=== PATIENT | female | born 1990 | race Caucasian/White ===

== ENCOUNTER → 2020-06-25 17:24 | Outpatient (CLI) | payer BC, SELFPAY ==
[2020-06-25 17:44] LABS: Basophils # 0.1 K/mm3 (0-0.2); Basophils % 0.8 % (0.1-2.0); Eosinophils # 0.2 K/mm3 (0.0-0.4); Eosinophils % 1.9 % (0.1-12.0); Hemoglobin 13.8 g/dL (12.2-16.2); Lymphocytes # 2.2 K/mm3 (0.7-4.5); Mean Corpuscular HGB Conc 33.7 g/dL (31.8-35.4); Mean Corpuscular Hemoglobin 28.8 pg (27.0-31.2); Mean Corpuscular Volume 85.5 fl (81-99); Mean Platelet Volume 7.7 fl (7.4-10.4); Monocytes # 0.4 K/mm3 (0.1-1.0); Neutrophils # 5.3 K/mm3 (1.8-7.8); Neutrophils % 65.3 % (37.0-80.0); Platelet Count 238 K/mm3 (142-424); Red Cell Distribution Width 13.9 % (11.5-17.5); White Blood Count 8.1 K/mm3 (4.8-10.8)
[2020-06-25 18:07] LABS: Chloride 106 mmol/L (98-107)
[2020-06-25 18:08] LABS: Potassium 4.1 mmoL/L (3.5-5.1); Sodium 137 mmol/L (136-145)
[2020-06-25 18:10] LABS: Alanine Aminotransferase 30 U/L (12-78); Albumin Level 4.6 g/dl (3.5-5.0); Albumin/Globulin Ratio 1.6 (1.1-1.8); Alkaline Phosphatase 88 U/L (38-126); Anion Gap 12.1 mEq/L (5-15); Aspartate Amino Transferase 32 U/L (14-36); Bilirubin,Total 0.7 mg/dl (0.2-1.3); Blood Urea Nitrogen 8 mg/dl (7-17); Carbon Dioxide 23 mmol/L (22.0-30.0); Estimated Glomerular Filt Rate 117 ml/min (>60); GFR (African American) 141 ML/MIN (>60); Globulin 2.8 g/dL (1.3-3.2); Total Protein,Serum 7.4 g/dl (6.3-8.2)
[2020-06-25 18:11] LABS: Calcium 9.3 mg/dl (8.4-10.2); Chol/HDL Ratio 3.1 (1-3.5); Cholesterol 181 mg/dl (140-200); Glucose 94 mg/dl (74-100); HDL Cholesterol 59 mg/dl (40-60); Triglycerides 122 mg/dl (30-150); VLDL Cholesterol 24 mg/dL (0-40)
[2020-06-25 18:22] LABS: Direct LDL Cholesterol 76.61 mg/dL (100-129)
[2020-06-25 18:27] LABS: Free T4 (Free Thyroxine) 1.12 ng/dl (0.78-2.19)
[2020-06-25 18:30] LABS: 25-OH Vitamin D, Total 16.1 ng/mL (30-100)
[2020-06-25 18:43] LABS: Thyroid Stimulating Hormone 1.44 uIU/mL (0.465-4.68)
[2020-06-25 19:02] LABS: Vitamin B12 460 pg/mL (239-931)
== END ==
PROVIDERS: Nurse Practitioner Psychiatric/Mental Health; Visit Provider Emergency Medicine
DX: R22.1 Localized swelling, mass and lump, neck (principal); J02.9 Acute pharyngitis, unspecified; E55.9 Vitamin D deficiency, unspecified; Z79.899 Other long term (current) drug therapy
CPT/HCPCS: 36415; 80053; 80061; 82306; 82607; 84439; 84443; 85025

== ENCOUNTER → 2020-06-29 13:13 | Outpatient (CLI) | payer BC, SELFPAY ==
--- NOTE | 2020-06-29 13:13 | US_ITS ---
PROCEDURE: US THYROID CLINICAL INDICATION: possible mass COMPARISON: No exams were available for comparison FINDINGS: Right lobe: 4.4 x 1.7 x 2.1 cm. Homogeneous echogenicity. Left lobe: 4.6 x 1.3 x 1.9 cm. Homogeneous echogenicity. There is a 3 mm anechoic nodule in the lower pole and a 4 mm slightly hypoechoic nodule in the lower pole. Isthmus: Unremarkable Additional findings: IMPRESSION: 2 benign appearing nodules lower pole on the left otherwise negative thyroid ultrasound Dictated by: Nathan Mcnair MD 06/29/2020 15:27 Nathan Mcnair MD in [place] 06/29/2020 15:27
== END ==
LOC: RAD 13:13
PROVIDERS: PCP Emergency Medicine; Visit Provider Emergency Medicine
DX: R22.1 Localized swelling, mass and lump, neck (principal)
CPT/HCPCS: 76536

== ENCOUNTER 2020-11-14 12:55 | Emergency (ER) | payer BC, SELFPAY ==
[2020-11-14 12:55] VITALS: BP 127/99; PULSE 104; RESP 24; TEMP 38.2; O2SAT 96; BMI 51.5
[2020-11-14 13:17] VITALS: PULSE 104; RESP 22; TEMP 38.2; O2SAT 96; BMI 51.6
--- NOTE | 2020-11-14 13:29 | HMH.EDUTC ---
[facility] [place] Disposition Clinical Impression: Viral upper respiratory illness, Exposure to COVID-19 virus Disposition: Home, Self-Care Condition on Discharge: Good Instructions: Vitamin C (Ascorbic Acid), Zinc, DI for Viral Upper Respiratory Infection -- Adult, DI for COVID-19 (Suspected or Confirmed ), Preventing the Spread of Coronavirus Discharge Instructions Additional Instructions: *Monitor Temp, Over the counter Motrin or Tylenol as directed/as needed Tylenol every 4 hours and Motrin every 6 hours (as long as your family doctor has told you that you can take it) for fever or pain. and straight to ER if unable to lower temp less than 101.0 after medication given *Warm salt water gargles may help to soothe the throat *Throat Lozenges *Warm fluids like tea with honey may help to soothe the throat *Sleep elevated *Humidifier/Vaporizer Your throat swab was sent for culture. Those results are typically sent to your primary care. Be sure to follow up in 2-3 days with your family doctor/primary care physician if no improvement so they can review those result and treat if necessary. If you don?t have a primary care doctor, I recommend you get one but in the mean time, you will have to return to a walk in clinic Follow up IMMEDIATELY for new or worsening symptoms or no Noticeable improvement over the next 48-72 hours. 911 for difficulty breathing or swallowing Go straight to ER if any severe shortness of breath or other life threatening symptoms You were tested for today for COVID19 your test result should be back in the next 24-48 hours, You was given a handout with how to log onto [facility] portal to get your results if you have issues logging on or no internet access you may call the [facility] for your results You was given a handout with instructions for Self Quarantine and Self isolation for while you wait on test results and what to do if they are positive If you are positive the Health Dept will be contacting you also Referrals: Da Barahona MD [Primary Care Provider] - As needed Forms: Work/School Release Time of Disposition: 13:49 Medical Decision Making - Pal Inquiry Pt receiving controlled substance: No Pal was queried for this patient: No Vital Signs: 11/14/20 12:55 11/14/20 13:17 11/14/20 13:34 Temperature 100.7 F H 100.7 F H 100.7 F H Temperature Source Oral Oral Pulse Rate 104 H Pulse Rate [Radial] 104 H 104 H Respiratory Rate 24 22 22 Blood Pressure 127/99 H Blood Pressure [Right Arm] 127/99 H Blood Pressure Mean [Right Arm] 108 02 Sat by Pulse Oximetry 96 96 Oxygen Delivery Method Room Air - Lab Data Lab results reviewed: Yes: I reviewed the patient's lab results. Lab Results 11/14/20 13:28: Strep Scn Rapid Clinic Negative Orders (Tests/Meds): ORDERS Category Date Time Status Covid-19 Nasal PCR ([facility]) Routine Lab 11/14/20 13:20 Received Strep Screen Confirmation Stat Micro 11/14/20 13:28 Received [facility] HPI - General Stated complaint: covid exposure, SOA Time Seen by Provider: 11/14/20 13:29 Mode of Arrival: Ambulatory Source of Information: Patient Limitations: No Limitations Description of Symptoms (Recalled from Triage Doc. by RN): PT C/O COUGH, NAUSEA, BODY ACHES, GILLESPIE, SOA AND FATIGUE. MOM TESTED POSITIVE FOR COVID YESTERDAY. HEENT Symptoms (Recalled from RN notes): Yes (GILLESPIE) Resp Symptoms (Recalled from RN notes): Yes (COUGH AND SOA) Skin Symptoms (Recalled from RN notes): No MS Symptoms (Recalled from RN notes): No Functional Status (Recalled from RN notes): FEVER, FATIGUE AND BODY ACHES - History of Present Illness Provider Complaint: Patient states that she lives with her mother and she tested positive for COVID states that she started having symptoms also States that she has been having body aches, chills, headache, nasal congestion, scratchy throat and feels a little winded off and on so she called her PCP and they recommended that she come in Denies any s
[2020-11-14 13:31] LABS: UTC Strep Screen (Rapid) Negative (Negative)
[2020-11-14 13:34] VITALS: BP 127/99; PULSE 104; RESP 22; TEMP 38.2
== END 2020-11-14 14:01 | disposition home or self-care (01) ==
LOC: ER 13:13 → UTC 13:14
PROVIDERS: Emergency Provider Nurse Practitioner; PCP Emergency Medicine
DX: U07.1 COVID-19 (principal); J06.9 Acute upper respiratory infection, unspecified
CPT/HCPCS: 87880; 99203; C9803; G0463; U0003; U0005

== ENCOUNTER 2020-11-25 15:47 | Emergency (ER) | payer BC, SELFPAY ==
[2020-11-25 16:20] VITALS: BP 180/105; PULSE 87; RESP 20; TEMP 36.9; O2SAT 98; BMI 52.4
--- NOTE | 2020-11-25 16:47 | HMH.EDUTC ---
[facility] [place] Disposition Clinical Impression: COVID-19 Pharyngitis Qualifiers: Pharyngitis/tonsillitis etiology: unspecified etiology Qualified Code(s): J02.9 - Acute pharyngitis, unspecified Disposition: Home, Self-Care Condition on Discharge: Good Instructions: Strep Throat, DI for Pharyngitis/Tonsillopharyngitis -- Adult, DI for COVID-19 (Suspected or Confirmed ), Preventing the Spread of Coronavirus Discharge Instructions Additional Instructions: Drink plenty of fluids. Take tylenol or ibuprofen for pain or fever. Take the medications as directed. Follow up with your regular doctor. GO TO THE ER FOR ANY WORSENING SYMPTOMS The cough medication (promethazine dm) will make you drowsy, so don't drive or operate heavy machinery after taking it. Prescriptions: Promethazine/Dextromethorphan [Promethazine-Dm Syrup] 5 ml PO Q6HP PRN #240 ml PRN Reason: Cough Transmission Status: Received by [id number] dexAMETHasone [Decadron] 6 mg PO DAILY 6 Days #6 tab Transmission Status: Received by [id number] Azithromycin [Z-Thomas 250mg Tab*] 250 mg PO UD DOSE PK #6 tab Transmission Status: Received by [id number] Referrals: Da Barahona MD [Primary Care Provider] - Forms: Work/School Release Time of Disposition: 17:11 Medical Decision Making - Medical Records Medical records reviewed: No: I reviewed the patient's medical records. - Pal Inquiry Pt receiving controlled substance: No Vital Signs: 11/25/20 16:20 11/25/20 17:16 Temperature 98.5 F 98.5 F Temperature Source Oral Pulse Rate 87 Pulse Rate [Left Brachial] 87 Respiratory Rate 20 20 Blood Pressure 180/105 H Blood Pressure [Left Arm] 180/105 H Blood Pressure Mean [Left Arm] 130 Blood Pressure Source [Left Arm] Automatic Cuff Blood Pressure Position [Left Arm] Sitting 02 Sat by Pulse Oximetry 98 Oxygen Delivery Method Room Air - Lab Data Lab results reviewed: Yes: I reviewed the patient's lab results. Lab Results 11/25/20 16:28: Chlamy pneumoniae PCR Not detected, Adenovirus (PCR) Not detected, B. pertussis DNA (PCR) Not detected, Coronavirus OC43 (PCR) Not detected, Coronavirus HKU1 (PCR) Not detected, Coronavirus 229E (PCR) Not detected, SARS-CoV-2 (PCR) Not detected, Coronavirus NL63 (PCR) Not detected, Human Metapneumovir PCR Not detected, Influenza A (H1) PCR Not detected, Influ A (H1N1/09) PCR Not detected, Influenza A (H3) PCR Not detected, Influenza Type A (PCR) Not detected, Influenza Type B (PCR) Not detected, M. pneumoniae (PCR) Not detected, Parainfluenza 1 (PCR) Not detected, Parainfluenza 2 (PCR) Not detected, Parainfluenza 3 (PCR) Not detected, Parainfluenza 4 (PCR) Not detected, RSV (PCR) Not detected, Entero/Rhino (PCR) Not detected - Radiology Data #1 Image(s): Chest Image Reviewed: Yes I reviewed the patient's radiology image, Yes I have reviewed radiologist's interpretation Preliminary Findings: Normal/NAD, No Infiltrates Seen PROCEDURE INFORMATION: Exam: XR Chest Exam date and time: 11/25/2020 4:47 PM Age: 30 years old Clinical indication: Cough; Additional info: Cough, congestion TECHNIQUE: Imaging protocol: XR of the chest. Views: 2 views. COMPARISON: No relevant prior studies available. FINDINGS: Lungs: Unremarkable. No consolidation. Pleural spaces: Unremarkable. No pleural effusion. No pneumothorax. Heart/Mediastinum: Unremarkable. No cardiomegaly. Bones/joints: Unremarkable. IMPRESSION: No acute findings. [facility] [place] HPI - General Stated complaint: covid positive 11/14 still has symptoms Time Seen by Provider: 11/25/20 16:47 Mode of Arrival: Ambulatory Source of Information: Patient Limitations: No Limitations Description of Symptoms (Recalled from Triage Doc. by RN): PATIENT TESTED POSITIVE FOR COVID ON 11/14. NEEDING NEG TEST TO RETURN TO WORK. C/O DIZZINESS, COUGH AND
[2020-11-25 16:55] LABS: Adenovirus,PCR Not Detected (NotDetected); Bordetella Pertussis Not Detected (NotDetected); Chlamydophila Pneumoniae, PCR Not Detected (NotDetected); Coronavirus 19, PCR Not Detected (NotDetected); Coronavirus 229E Not Detected (NotDetected); Coronavirus NL63 Not Detected (NotDetected); Coronavirus OC43 Not Detected (NotDetected); Coronovirus HKU1,PCR Not Detected (NotDetected); Human Metapneumovirus Not Detected (NotDetected); Influenza A, PCR Not Detected (NotDetected); Influenza AH1, 2009 Not Detected (NotDetected); Influenza AH1, PCR Not Detected (NotDetected); Influenza AH3,PCR Not Detected (NotDetected); Influenza B, PCR Not Detected (NotDetected); Mycoplasma Pneumoniae, PCR Not Detected (NotDetected); Parainfluenza 1, PCR Not Detected (NotDetected); Parainfluenza 2, PCR Not Detected (NotDetected); Parainfluenza 3, PCR Not Detected (NotDetected); Parainfluenza 4, PCR Not Detected (NotDetected); Respiratory Syncytial Virus Not Detected (NotDetected); Rhinovirus/Enterovirus Not Detected (NotDetected)
[2020-11-25 17:16] VITALS: BP 180/105; PULSE 87; RESP 20; TEMP 36.9; O2SAT 98
== END 2020-11-25 17:23 | disposition home or self-care (01) ==
PROVIDERS: Emergency Provider Nurse Practitioner Family; PCP Emergency Medicine
DX: U07.1 COVID-19 (principal); J02.9 Acute pharyngitis, unspecified
CPT/HCPCS: 71046; 87581; 87632; 87798; 99202; C9803; G0463; U0003; U0005

== ENCOUNTER 2022-02-02 12:21 | Emergency (ER) | payer BC, SELFPAY ==
--- NOTE | 2022-02-02 12:56 | EXP.UTC ---
Discharge Plan Disposition Patient Disposition: Home, Self-Care Condition: Good Prescriptions Prescriptions: New azithromycin [Zithromax] 250 mg tablet 250 mg PO UD DOSE PK Qty: 6 0RF Rx Instructions: Take two (2) tablets today, then one (1) tablet days #2 thru #5 oseltamivir [Tamiflu] 75 mg capsule 75 mg PO BID Qty: 10 0RF ochjwhmuaehhwqx-nrarjnvog-VR [Bromfed DM] 2-30-10 mg/5 mL Syrup 5 ml PO Q6H PRN (Reason: Cough) Qty: 240 0RF No Action phentermine [Adipex-P] 37.5 mg tablet 37.5 mg PO DAILY Qty: 30 0RF Rx Instructions: must administer 30 minutes before or 1-2 hours after breakfast buspirone 10 mg tablet 10 mg PO BID 90 Days Qty: 180 0RF Vraylar 3 mg capsule 3 mg PO DAILY Qty: 90 0RF venlafaxine [Effexor XR] 150 mg capsule,extended release 24hr 150 mg PO DAILY 90 Days Qty: 90 0RF Ozempic 0.25 mg or 0.5 mg(2 mg/1.5 mL) pen injector 0.25 mg SQ WEEKLY Qty: 1.5 2RF Rx Instructions: 0.25mg weekly for 4 weeks then 0.5mg weekly for 8 weeks Referrals Follow up/Referrals: Da Barahona MD [Primary Care Provider] - See instructions Activity Restrictions/Add. Instructions Additional Instructions/Restrictions: Drink plenty of fluids. Take tylenol or ibuprofen for pain or fever. Take the medications as directed. Follow up with your regular doctor. GO TO THE ER FOR ANY WORSENING SYMPTOMS Clinical Impressions Clinical Impression: Influenza A Stand Alone Forms Stand Alone Forms: Work/School Release Instructions Patient Instructions: DI for Influenza -- Adult, Oseltamivir Discharge ED Provider: Tahir Benjamin [facility] General Stated complaint: body aches fever headache Time Seen by Provider: 02/02/22 12:56 History of Present Illness Provider Complaint: She states that for the past 2 days she has had body aches, chills, fever, sore throat and a dry cough. Related Data Previous Rx's Medication Instructions Recorded semaglutide 0.25 mg or 0.5 mg (2 0.25 mg (0.2 mL) SQ WEEKLY #1.5 mL 12/30/21 mg/1.5 mL) subcutaneous pen injector (Ozempic) buspirone 10 mg tablet 10 mg PO BID 90 days #180 tabs 01/01/22 cariprazine 3 mg capsule (Vraylar) 3 mg PO DAILY #90 caps 01/01/22 venlafaxine 150 mg 150 mg PO DAILY 90 days #90 caps 01/01/22 capsule,extended release 24 hr (Effexor XR) phentermine 37.5 mg tablet 37.5 mg PO DAILY #30 tabs 01/29/22 (Adipex-P) azithromycin 250 mg tablet 250 mg PO UD DOSE PK #6 tabs 02/02/22 (Zithromax) dcwylyejxynotyb-tnqgpqawrmwjpga-PR 5 ml PO Q6H PRN Cough #240 mL 02/02/22 2 mg-30 mg-10 mg/5 mL oral syrup (Bromfed DM) oseltamivir 75 mg capsule (Tamiflu) 75 mg PO BID #10 caps 02/02/22 Allergies Allergy/AdvReac Type Severity Reaction Status Date / Time No Known Allergies Allergy Verified 02/02/22 13:03 [facility] Disclaimer: The information contained in this section may have been updated after the patient was seen, as this information can be updated by other users. Medical History Generalized anxiety disorder Major depressive disorder Social History Smoking Status: Never smoker alcohol intake: current substance use type: denies use current occupational status: employed Travel in the last 8 weeks: None household members: family housing: house number of children: 1 ROS Obtained: Yes All systems reviewed & no additional complaints except as documented Constitutional Constitutional: Reports chills and Reports fever(s) Eyes Eyes: Denies eye discharge ENT Ears, Nose, Mouth, and Throat: Reports as per HPI Cardiovascular Cardiovascular: Denies chest pain Respiratory Respiratory: Denies chest congestion and Reports cough Gastrointestinal Gastrointestingal: Reports nausea; Denies abdominal pain, constipation, cramping, diarrhea or vomiting Musculoskeletal Musculoskel
[2022-02-02 12:59] LABS: UTC Influenza A Antigen Positive (Negative); UTC Influenza B Antigen Negative (Negative)
[2022-02-02 13:01] VITALS: BP 135/101; PULSE 102; RESP 16; TEMP 37.3; O2SAT 95; BMI 53.2
[2022-02-02 13:44] VITALS: BP 135/101; PULSE 102; RESP 16; TEMP 37.3
== END 2022-02-02 13:51 | disposition home or self-care (01) ==
PROVIDERS: Emergency Provider Nurse Practitioner Family; PCP Emergency Medicine
DX: J10.1 Influenza due to other identified influenza virus with other respiratory manifestations (principal)
CPT/HCPCS: 87804; 99212; G0463

== ENCOUNTER 2022-04-17 17:06 | Emergency (ER) | payer MEDICAID, SELFPAY ==
--- NOTE | 2022-04-17 17:12 | XR_ITS ---
PROCEDURE INFORMATION: Exam: XR Left Knee Exam date and time: 04/17/2022 5:24 PM Age: 31 years old Clinical indication: Pain; Knee; Left; Additional info: Fall TECHNIQUE: Imaging protocol: Radiologic exam of the Left knee. Views: 3 views. COMPARISON: No relevant prior studies available. FINDINGS: Bones/joints: Small marginal osteophytes and degenerative changes involving the patellofemoral joint. Soft tissues: Normal. IMPRESSION: Small marginal osteophytes and degenerative changes involving the patellofemoral joint. No acute osseous abnormality.
[2022-04-17 17:46] VITALS: BP 151/90; PULSE 110; RESP 20; TEMP 36.6; O2SAT 95; BMI 53.2
--- NOTE | 2022-04-17 17:48 | EXP.UTC ---
Discharge Plan Disposition Patient Disposition: Home, Self-Care Condition: Good Prescriptions Prescriptions: New ibuprofen [IBU] 800 mg tablet 800 mg PO Q8HP PRN (Reason: Moderate Pain) Qty: 30 0RF No Action phentermine [Adipex-P] 37.5 mg tablet 37.5 mg PO DAILY Qty: 30 0RF Rx Instructions: must administer 30 minutes before or 1-2 hours after breakfast Vraylar 3 mg capsule 3 mg PO DAILY Qty: 90 0RF venlafaxine [Effexor XR] 150 mg capsule,extended release 24hr 150 mg PO DAILY 90 Days Qty: 90 0RF Ozempic 0.25 mg or 0.5 mg(2 mg/1.5 mL) pen injector 0.25 mg SQ WEEKLY Qty: 1.5 2RF Rx Instructions: 0.25mg weekly for 4 weeks then 0.5mg weekly for 8 weeks buspirone 10 mg tablet 10 mg PO BID 90 Days Qty: 180 0RF azithromycin [Zithromax] 250 mg tablet 250 mg PO UD DOSE PK Qty: 6 0RF Rx Instructions: Take two (2) tablets today, then one (1) tablet days #2 thru #5 oseltamivir [Tamiflu] 75 mg capsule 75 mg PO BID Qty: 10 0RF blbyacssjmxtsnq-ejqayhpqq-MC [Bromfed DM] 2-30-10 mg/5 mL Syrup 5 ml PO Q6H PRN (Reason: Cough) Qty: 240 0RF Referrals Follow up/Referrals: Osmani Carney JR, MD [Physician] - See instructions Da Barahona MD [Primary Care Provider] - See instructions Activity Restrictions/Add. Instructions Additional Instructions/Restrictions: Rest the extremity, Elevate the extremity as tolerated while you are resting. Take ibuprofen for pain. I sent in a prescription to your pharmacy. Follow up with Dr. Carney (orthopedics). I put in a referral but you need to call his office and schedule an appointment. Follow up with your regular doctor. GO TO THE ER FOR ANY WORSENING SYMPTOMS Clinical Impressions Clinical Impression: Left knee pain, Left knee sprain Stand Alone Forms Stand Alone Forms: Work/School Release Instructions Patient Instructions: How to Use an Elastic Bandage-Knee Sprain, DI for Knee Sprain, DI for Knee Pain Discharge ED Provider: Tahir Benjamin [facility] HPI General Stated complaint: AO02/15 LT knee inj Time Seen by Provider: 04/17/22 17:48 History of Present Illness Provider Complaint: She states that she stepped down out of a truck yesterday and came down wrong on her left knee. She denies falling or twisting the knee. She states that it hurt when she stepped down. Then, since then, she has had left knee pain that is worse with bearing weight or walking. She denies any other injury. Related Data Previous Rx's Medication Instructions Recorded semaglutide 0.25 mg or 0.5 mg (2 0.25 mg (0.2 mL) SQ WEEKLY #1.5 mL 12/30/21 mg/1.5 mL) subcutaneous pen injector (Ozempic) cariprazine 3 mg capsule (Vraylar) 3 mg PO DAILY #90 caps 01/01/22 venlafaxine 150 mg 150 mg PO DAILY 90 days #90 caps 01/01/22 capsule,extended release 24 hr (Effexor XR) phentermine 37.5 mg tablet 37.5 mg PO DAILY #30 tabs 01/29/22 (Adipex-P) azithromycin 250 mg tablet 250 mg PO UD DOSE PK #6 tabs 02/02/22 (Zithromax) odpgbnfgosmrjit-oxiyriwjmoebjjw-RW 5 ml PO Q6H PRN Cough #240 mL 02/02/22 2 mg-30 mg-10 mg/5 mL oral syrup (Bromfed DM) oseltamivir 75 mg capsule (Tamiflu) 75 mg PO BID #10 caps 02/02/22 buspirone 10 mg tablet 10 mg PO BID 90 days #180 tabs 03/31/22 ibuprofen 800 mg tablet (IBU) 800 mg PO Q8HP PRN Moderate Pain 04/17/22 #30 tabs Allergies Allergy/AdvReac Type Severity Reaction Status Date / Time No Known Allergies Allergy Verified 02/02/22 13:03 [facility] Disclaimer: The information contained in this section may have been updated after the patient was seen, as this information can be updated by other users. Medical History Generalized anxiety disorder Major depressive disorder Social History Smoking Status: Never smoker alcohol intake: current substance use type: denies use current occupa
[2022-04-17 17:57] VITALS: BP 151/80; PULSE 90; RESP 20; TEMP 36.6; O2SAT 96
== END 2022-04-17 18:37 | disposition home or self-care (01) ==
PROVIDERS: Emergency Provider Nurse Practitioner Family; PCP Emergency Medicine
DX: S83.92XA Sprain of unspecified site of left knee, initial encounter (principal)
CPT/HCPCS: 73562; 99212; 99213; G0463

== ENCOUNTER → 2022-05-12 15:44 | Outpatient (CLI) | payer MEDICAID, SELFPAY ==
[2022-05-12 16:42] LABS: Hemoglobin A1C 4.8 % (4.0-6.0)
[2022-05-12 16:45] LABS: Alanine Aminotransferase 32 U/L (12-78); Albumin Level 4.4 g/dl (3.5-5.0); Albumin/Globulin Ratio 1.6 (1.1-1.8); Alkaline Phosphatase 86 U/L (38-126); Aspartate Amino Transferase 33 U/L (14-36); Bilirubin,Total 0.5 mg/dl (0.2-1.3); Blood Urea Nitrogen 11 mg/dl (7-17); Calcium 8.9 mg/dl (8.4-10.2); Carbon Dioxide 26 mmol/L (22.0-30.0); Chloride 105 mmol/L (98-107); Cholesterol 206 mg/dl (140-200); Estimated Glomerular Filt Rate 97 ml/min (>60); GFR (African American) 117 ML/MIN (>60); Globulin 2.7 g/dL (1.3-3.2); Glucose 111 mg/dl (74-100); HDL Cholesterol 41 mg/dl (40-60); Sodium 136 mmol/L (136-145); Total Protein,Serum 7.1 g/dl (6.3-8.2); Triglycerides 274 mg/dl (30-150); VLDL Cholesterol 55 mg/dL (0-40)
[2022-05-12 16:57] LABS: Direct LDL Cholesterol 100.43 mg/dL (100-129)
[2022-05-12 17:02] LABS: 25-OH Vitamin D, Total 30.3 ng/mL (30-100)
[2022-05-12 17:16] LABS: Thyroid Stimulating Hormone 2.42 uIU/mL (0.465-4.68)
[2022-05-12 17:55] LABS: Hematocrit 41.5 % (37.0-47.0); Hemoglobin 13.7 g/dL (12.2-16.2); Mean Corpuscular HGB Conc 32.9 g/dL (31.8-35.4); Mean Corpuscular Hemoglobin 28.8 pg (27.0-31.2); Mean Corpuscular Volume 87.7 fl (81-99); Platelet Count 267 K/mm3 (142-424); Red Blood Count 4.74 M/mm3 (4.20-5.40); Red Cell Distribution Width 13.8 % (11.5-17.5); White Blood Count 6.9 K/mm3 (4.8-10.8)
[2022-05-12 17:56] LABS: Basophils # 0.1 K/mm3 (0-0.2); Basophils % 0.8 % (0.1-2.0); Eosinophils # 0.1 K/mm3 (0.0-0.4); Eosinophils % 1.6 % (0.1-12.0); Lymphocytes # 2.4 K/mm3 (0.7-4.5); Lymphocytes % 34.3 % (10-50); Mean Platelet Volume 8.6 fl (7.4-10.4); Monocytes # 0.4 K/mm3 (0.1-1.0); Monocytes % 5.6 % (1.7-9.3); Neutrophils # 3.9 K/mm3 (1.8-7.8); Neutrophils % 56.7 % (37.0-80.0)
== END ==
PROVIDERS: PCP Emergency Medicine; Visit Provider Nurse Practitioner Family
DX: R73.03 Prediabetes (principal); I10 Essential (primary) hypertension; E88.81 Metabolic syndrome and other insulin resistance; R53.83 Other fatigue; E66.01 Morbid (severe) obesity due to excess calories; Z68.43 Body mass index [BMI] 50.0-59.9, adult
CPT/HCPCS: 36415; 80053; 80061; 82306; 83036; 84443; 85025

== ENCOUNTER 2022-06-18 15:41 | Outpatient (CLI) | payer MEDICAID, SELFPAY ==
[2022-06-18 16:04] VITALS: BP 171/96; PULSE 96; RESP 18; TEMP 36.8; O2SAT 100
== END 2022-06-18 16:05 | disposition home or self-care (01) ==
LOC: INF 15:42
PROVIDERS: PCP Emergency Medicine
DX: Z29.14 Encounter for prophylactic rabies immune globulin (principal); Z23 Encounter for immunization
CPT/HCPCS: 90675; 96372

== ENCOUNTER → 2022-10-09 15:49 | Outpatient (CLI) | payer MEDICAID, SELFPAY ==
[2022-10-09 13:07] LABS: Anion Gap 13.4 mEq/L (5-15); Blood Urea Nitrogen 14 mg/dl (7-17); Calcium 9.5 mg/dl (8.4-10.2); Carbon Dioxide 27 mmol/L (22.0-30.0); Chloride 103 mmol/L (98-107); Estimated Glomerular Filt Rate 115 ml/min (>60); GFR (African American) 139 ML/MIN (>60); Glucose 102 mg/dl (74-100); Potassium 4.4 mmoL/L (3.5-5.1); Sodium 139 mmol/L (136-145)
== END ==
PROVIDERS: PCP Nurse Practitioner Family; Visit Provider Nurse Practitioner Family
DX: I10 Essential (primary) hypertension (principal)
CPT/HCPCS: 80048

== ENCOUNTER 2022-11-17 23:41 | Emergency (ER) | payer MEDICAID, SELFPAY ==
[2022-11-17 23:43] VITALS: BP 163/85; PULSE 136; RESP 23; TEMP 36.6; O2SAT 96; BMI 56.5
[2022-11-17 23:58] VITALS: PULSE 115; RESP 21; O2SAT 98
[2022-11-18 00:05] LABS: Basophils # 0.1 K/mm3 (0-0.2); Basophils % 0.7 % (0.1-2.0); Chloride 105 mmol/L (98-107); Eosinophils # 0.2 K/mm3 (0.0-0.4); Eosinophils % 2.1 % (0.1-12.0); Hematocrit 43.4 % (37.0-47.0); Hemoglobin 13.9 g/dL (12.2-16.2); Lymphocytes # 3.3 K/mm3 (0.7-4.5); Lymphocytes % 27.9 % (10-50); Mean Corpuscular Hemoglobin 28.6 pg (27.0-31.2); Mean Corpuscular Volume 89.5 fl (81-99); Mean Platelet Volume 8.6 fl (7.4-10.4); Monocytes # 0.8 K/mm3 (0.1-1.0); Monocytes % 6.4 % (1.7-9.3); Neutrophils # 7.3 K/mm3 (1.8-7.8); Neutrophils % 62.9 % (37.0-80.0); Platelet Count 247 K/mm3 (142-424); Red Blood Count 4.85 M/mm3 (4.20-5.40); Red Cell Distribution Width 14.1 % (11.5-17.5); Sodium 139 mmol/L (136-145); White Blood Count 11.7 K/mm3 (4.8-10.8)
[2022-11-18 00:07] LABS: Blood Urea Nitrogen 14 mg/dl (7-17); Creatinine Clearance Estimated 103 mL/min (50-200); Estimated Glomerular Filt Rate 96 ml/min (>60); GFR (African American) 117 ML/MIN (>60)
[2022-11-18 00:08] LABS: Alanine Aminotransferase 37 U/L (12-78); Albumin Level 4.3 g/dl (3.5-5.0); Albumin/Globulin Ratio 1.3 (1.1-1.8); Alkaline Phosphatase 85 U/L (38-126); Aspartate Amino Transferase 38 U/L (14-36); Bilirubin,Total 0.4 mg/dl (0.2-1.3); Calcium 9.1 mg/dl (8.4-10.2); Carbon Dioxide 25 mmol/L (22.0-30.0); Globulin 3.4 g/dL (1.3-3.2); Glucose 109 mg/dl (74-100); Total Protein,Serum 7.7 g/dl (6.3-8.2)
--- NOTE | 2022-11-18 00:20 | CT_ITS ---
PROCEDURE INFORMATION: Exam: CT Abdomen And Pelvis With Contrast Exam date and time: 11/18/2022 12:54 AM Age: 32 years old Clinical indication: Abdominal pain; Flank; Left; Additional info: Severe left flank pain TECHNIQUE: Imaging protocol: Computed tomography of the abdomen and pelvis with contrast. Radiation optimization: All CT scans at this facility use at least one of these dose optimization techniques: automated exposure control; mA and/or kV adjustment per patient size (includes targeted exams where dose is matched to clinical indication); or iterative reconstruction. Contrast material: ISOVUE; Contrast volume: 75 ml; Contrast route: IV; REPORTING DATA: Count of CT and Cardiac NM exams in prior 12 months: This patient has received 0 known CTs and 0 known cardiac nuclear medicine studies in the 12 months prior to the current study. COMPARISON: CR XR CHEST 2V 11/25/2020 4:48 PM FINDINGS: Pleural spaces: There is a trace left pleural effusion. Liver: Normal. No mass. Gallbladder and bile ducts: Normal. No calcified stones. No ductal dilation. Pancreas: Normal. No ductal dilation. Spleen: The spleen is enlarged. Adrenal glands: Normal. No mass. Kidneys and ureters: Normal. No hydronephrosis. Stomach and bowel: There is large volume stool throughout the colon. There are scattered colonic diverticula without evidence for active diverticulitis. Appendix: No evidence of appendicitis. Intraperitoneal space: There is stranding in the central abdominal mesentery which could be associated with mesenteric panniculitis/sclerosing mesenteritis but is technically nonspecific for any entity. Vasculature: Multiple pelvic phleboliths are present. Lymph nodes: Unremarkable. No enlarged lymph nodes. Urinary bladder: Unremarkable as visualized. Reproductive: Unremarkable as visualized. Bones/joints: Unremarkable. No acute fracture. Soft tissues: There is a small fat containing umbilical hernia. IMPRESSION: Splenomegaly and a trace left pleural effusion, otherwise unremarkable study.
--- NOTE | 2022-11-18 00:21 | CT_ITS ---
PROCEDURE INFORMATION: Exam: CTA Chest With Contrast Exam date and time: 11/18/2022 12:54 AM Age: 32 years old Clinical indication: Pain; Left-sided; Additional info: Acute onset left cp, SOB, tachy TECHNIQUE: Imaging protocol: Computed tomographic angiography of the chest with contrast. Exam focused on the arteries. 3D rendering (Not supervised by radiologist): MIP and/or 3D reconstructed images were created by the technologist. Radiation optimization: All CT scans at this facility use at least one of these dose optimization techniques: automated exposure control; mA and/or kV adjustment per patient size (includes targeted exams where dose is matched to clinical indication); or iterative reconstruction. Contrast material: ISOVUE; Contrast volume: 75 ml; Contrast route: INTRAVENOUS (IV); REPORTING DATA: Count of CT and Cardiac NM exams in prior 12 months: This patient has received 0 known CTs and 0 known cardiac nuclear medicine studies in the 12 months prior to the current study. COMPARISON: CR XR CHEST 2V 11/25/2020 4:48 PM FINDINGS: Pulmonary arteries: There is poor opacification of the pulmonary arterial tree. No large central pulmonary arterial filling defect is seen. Aorta: Unremarkable. No aortic aneurysm. No aortic dissection. Lungs: There is some atelectasis at the left lung base. Pleural spaces: There is a trace left pleural effusion. Heart: Unremarkable. No cardiomegaly. No pericardial effusion. Lymph nodes: Unremarkable. No enlarged lymph nodes. Intraperitoneal space: Please see the dedicated interpretation of abdomen and pelvis for findings in that region. Bones/joints: Unremarkable. No acute fracture. Soft tissues: Unremarkable. IMPRESSION: 1. There is poor opacification of the pulmonary arterial tree. No large central pulmonary arterial filling defect is seen. 2. There is a trace left pleural effusion. 3. Please see the dedicated interpretation of abdomen and pelvis for findings in that region.
[2022-11-18 00:31] LABS: HCG,Quantitative < 2 mIU/ml (0-5.42)
[2022-11-18 00:34] LABS: Lipase 134 U/L (23-300)
--- NOTE | 2022-11-18 00:36 | ECG_ITS ---
APPROVED REPORT Exam: Resting ECG HR:95 bpm ECG Measurements Heart Rate 95 AXES ID 139 P 59 QRSd 98 QRS 27 QT 363 T 55 QTc 416 Conclusion SINUS RHYTHM LOW QRS VOLTAGE IN PRECORDIAL LEADS [QRS DEFLECTION < 1.0 mV IN CHEST LEADS] BORDERLINE ECG UNCONFIRMED REPORT Electronically signed by : Sam Garcia MD 11/18/2022 19:56:35
[2022-11-18 00:42] LABS: Microscopic, Urine URINE MICROSCOPIC (MICROSCOPIC)
[2022-11-18 00:45] LABS: Appearance,Urine CLEAR (Clear); Bilirubin,Urine Negative (Negative); Blood, Urine Negative (Negative); Color,Urine YELLOW (Yellow); Glucose,Urine (UA) Negative (Negative); Ketones,Urine Negative (Negative); Leukocyte Esterase,Urine Negative (Negative); Nitrate,Urine Negative (Negative); Protein,Urine Negative (Negative); Specific Gravity, Urine 1.025 (1.005-1.030); Urobilinogen,Urine 0.2 EU/dl (0.2)
--- NOTE | 2022-11-18 00:47 | PC.NURSE ---
Patient gone to CT at this time.
[2022-11-18 00:59] LABS: Bacteria,Urine 1+ /lpf; RBC,Urine Occasional #/hpf (0-3)
--- NOTE | 2022-11-18 01:00 | PC.NURSE ---
patient back in room from CT at this time.
--- NOTE | 2022-11-18 01:01 | HMH.EDGENADL ---
Discharge Plan Disposition Patient Disposition: Home, Self-Care Condition: Good Prescriptions Prescriptions: No Action atorvastatin 10 mg tablet 10 mg PO DAILY lisinopril 20 mg tablet 20 mg PO DAILY venlafaxine [Effexor XR] 150 mg capsule,extended release 24hr 150 mg PO DAILY hydrochlorothiazide 25 mg tablet 12.5 mg PO DAILY Vraylar 1.5 mg capsule 1.5 mg PO DAILY Referrals Follow up/Referrals: Da Barahona MD [Primary Care Provider] - See instructions Activity Restrictions/Add. Instructions Additional Instructions/Restrictions: Please follow-up with your primary care provider. Please return to the emergency department if you develop any new or worsening symptoms or become concerned for your health. Clinical Impressions Clinical Impression: Acute flank pain, Chest pain, pleuritic, Splenomegaly Instructions Patient Instructions: DI for Acute Abdominal Pain Discharge ED Provider: Armaan Moser Adult HPI General Chief complaint: Abdominal Pain Stated complaint: Pain in left side,Difficulty breathing Time Seen by Provider: 11/17/22 23:46 Mode of Arrival: Ambulatory Source of Information: Patient Limitations: No Limitations Description of Symptoms (Recalled from ER Triage Doc. by RN): 32 F presents with left flank pain that began this morning and has gotten worse throughout this evening. Pain is described as sharp and shoothing. This is causing her to become short of air because it takes her breath when it shoots. Patient reports nausea, but denies fever, chills, vomiting, dysuria. History of Present Illness HPI narrative: 32-year-old female history of anxiety depression obesity presents with worsening left left flank pain since this morning. She reports that she thought she may have slept on it wrong but it has gotten worse. Today and is now severe. She also reports radiation into her left chest, worse with deep breathing. Reports shortness of breath. She denies any urinary symptoms. Denies any recent infection or illness. Denies history of blood clots. Reports nausea, denies vomiting. Related Data Home Medications Medication Instructions Recorded Confirmed atorvastatin 10 mg tablet 10 mg PO DAILY High Cholesterol 11/17/22 11/17/22 cariprazine 1.5 mg capsule 1.5 mg PO DAILY Antipsychotic 11/17/22 11/17/22 (Vraylar) hydrochlorothiazide 25 mg tablet 12.5 mg PO DAILY High Blood 09/18/23 09/18/23 Pressure lisinopril 20 mg tablet 20 mg PO DAILY High Blood Pressure 11/17/22 11/17/22 venlafaxine 150 mg 150 mg PO DAILY Depression 11/17/22 11/17/22 capsule,extended release 24 hr (Effexor XR) Allergies Allergy/AdvReac Type Severity Reaction Status Date / Time No Known Allergies Allergy Verified 11/12/22 08:21 [facility] Disclaimer: The information contained in this section may have been updated after the patient was seen, as this information can be updated by other users. Medical History (Updated 11/18/22 @ 02:15 by Armaan Moser MD) Bronchitis COVID-19 Exposure to COVID-19 virus Generalized anxiety disorder Influenza A Laceration of right hand Major depressive disorder MDD (major depressive disorder), recurrent episode, moderate OCD (obsessive compulsive disorder) Pharyngitis Sore throat Viral upper respiratory illness Social History Smoking Status: Never smoker alcohol intake: current substance use type: denies use current occupational status: employed Travel in the last 8 weeks: None household members: family housing: house number of children: 1 ROS Obtained: Yes All systems reviewed & no additional complaints except as documented Physical Exam General General appearance: alert, anxious and obese Head Head exam: atraumatic and normocephalic Eye Eye exam: Present normal appearance, PERRL and EOMI ENT ENT exam: Present normal oropharynx and lazaro
[2022-11-18 01:44] VITALS: BP 154/72; PULSE 91; RESP 18; TEMP 36.6; O2SAT 98
== END 2022-11-18 01:48 | disposition home or self-care (01) ==
PROVIDERS: Emergency Provider Emergency Medicine; PCP Emergency Medicine
DX: R07.81 Pleurodynia (principal); R10.9 Unspecified abdominal pain; R06.02 Shortness of breath; R16.1 Splenomegaly, not elsewhere classified; F41.1 Generalized anxiety disorder; F33.1 Major depressive disorder, recurrent, moderate
CPT/HCPCS: 71275; 74177; 80053; 81001; 83690; 84702; 85025; 93005; 96361; 96374; 96375; 99285; Q9967

== ENCOUNTER → 2022-12-04 19:09 | Outpatient (CLI) | payer MEDICAID, SELFPAY | PROVIDERS: PCP Nurse Practitioner Family; Visit Provider Nurse Practitioner Family | DX: R06.83 Snoring (principal); R40.0 Somnolence; G47.33 Obstructive sleep apnea (adult) (pediatric) | CPT/HCPCS: G0399 ==

== ENCOUNTER → 2022-12-31 07:11 | Outpatient (CLI) | payer MEDICAID, SELFPAY ==
[2022-12-30 20:03] LABS: Alanine Aminotransferase 34 U/L (12-78); Albumin Level 4.5 g/dl (3.5-5.0); Albumin/Globulin Ratio 1.5 (1.1-1.8); Alkaline Phosphatase 92 U/L (38-126); Anion Gap 13.8 mEq/L (5-15); Aspartate Amino Transferase 35 U/L (14-36); Bilirubin,Total 0.3 mg/dl (0.2-1.3); Blood Urea Nitrogen 12 mg/dl (7-17); Calcium 9.3 mg/dl (8.4-10.2); Carbon Dioxide 25 mmol/L (22.0-30.0); Chloride 104 mmol/L (98-107); Estimated Glomerular Filt Rate 96 ml/min (>60); GFR (African American) 117 ML/MIN (>60); Glucose 101 mg/dl (74-100); Potassium 3.8 mmoL/L (3.5-5.1); Sodium 139 mmol/L (136-145); Total Protein,Serum 7.5 g/dl (6.3-8.2)
[2022-12-30 20:21] LABS: Free T4 (Free Thyroxine) 1.16 ng/dl (0.78-2.19)
[2023-01-09 22:28] LABS: 1,25 Dihydroxy Vitamin D 90 pg/mL (.); 1,25-Dihydroxy, Vitamin D-2 10 pg/mL (.); 1,25-Dihydroxy, Vitamin D-3 80 pg/mL (.)
== END ==
PROVIDERS: PCP Nurse Practitioner Family; Visit Provider Nurse Practitioner Acute Care
DX: F33.1 Major depressive disorder, recurrent, moderate (principal); Z68.44 Body mass index [BMI] 60.0-69.9, adult
CPT/HCPCS: 80053; 82652; 84439

== ENCOUNTER 2023-03-10 18:05 | Outpatient (CLI) | payer MEDICAID, SELFPAY | END 2023-03-10 23:59 | LOC: LAB.DROPOF 18:05 | PROVIDERS: PCP Student in an Organized Health Care Education/Training Program; Visit Provider Student in an Organized Health Care Education/Training Program | DX: J02.9 Acute pharyngitis, unspecified (principal); B95.4 Other streptococcus as the cause of diseases classified elsewhere | CPT/HCPCS: 87070 ==

== ENCOUNTER 2023-03-11 18:31 | Outpatient (CLI) | payer MEDICAID, SELFPAY | END 2023-03-11 23:59 | LOC: LAB.DROPOF 18:31 | PROVIDERS: PCP Nurse Practitioner Family; Visit Provider Nurse Practitioner Family | DX: Z20.822 Contact with and (suspected) exposure to COVID-19 (principal); U07.1 COVID-19 | CPT/HCPCS: 87635 ==

== ENCOUNTER 2023-04-17 14:17 | Emergency (ER) | payer MEDICAID, SELFPAY ==
[2023-04-17 15:20] VITALS: BP 148/96; PULSE 103; RESP 19; TEMP 36.9; O2SAT 99; BMI 62.1
--- NOTE | 2023-04-17 15:27 | ED_ITS ---
Discharge Plan Disposition Patient Disposition: Home, Self-Care Condition: Good Prescriptions Prescriptions: New amoxicillin-pot clavulanate 875-125 mg Tablet 1 tab PO Q12H Qty: 20 0RF fluticasone propionate [Flonase Allergy Relief] 50 mcg/actuation spray ,suspension 2 spray intranasal DAILY Qty: 16 0RF Rx Instructions: administer into each nostril No Action atorvastatin 10 mg tablet 10 mg PO HS Patient Comments: TAKE 1 TABLET BY MOUTH ONCE DAILY lisinopril 20 mg tablet 20 mg PO DAILY Patient Comments: TAKE 1 TABLET BY MOUTH ONCE DAILY venlafaxine 150 mg capsule,extended release 24hr 150 mg PO DAILY Patient Comments: TAKE 1 CAPSULE BY MOUTH ONCE DAILY hydrochlorothiazide 25 mg tablet 12.5 mg PO DAILY Patient Comments: TAKE 1/2 (ONE-HALF) TABLET BY MOUTH ONCE DAILY Referrals Follow up/Referrals: Jr Li APRN [Primary Care Provider] - See instructions Activity Restrictions/Add. Instructions Additional Instructions/Restrictions: *Monitor Temp, Over the counter Motrin or Tylenol as directed/as needed Tylenol every 4 hours and Motrin every 6 hours (as long as your family doctor has told you that you can take it) for fever or pain. and straight to ER if unable to lower temp less than 101.0 after medication given *Warm salt water gargles may help to soothe the throat *Throat Lozenges? *Warm fluids like tea with honey may help to soothe the throat? *Sleep elevated *Humidifier/Vaporizer *Flonase 2 sprays in each nostril daily but be aware that it may take 2-3 days before you notice improvement *Bromfed may cause drowsiness. Know how it effects you (your child) before driving, caring for small child, or sending your child to school. Not other antihistamines/allergy medications while taking bromfed Your throat swab was sent for culture. Those results are typically sent to your primary care. Be sure to follow up in 2-3 days with your family doctor/primary care physician if no improvement so they can review those result and treat if necessary. If you don?t have a primary care doctor, I recommend you get one but in the mean time, you will have to return to a walk in clinic Follow up IMMEDIATELY for new or worsening symptoms or no Noticeable impro vement over the next 48-72 hours. 911 for difficulty breathing or swallowing Clinical Impressions Clinical Impression: Otitis media Qualifiers: Otitis media type: unspecified Laterality: bilateral Qualified Code(s): H66.93 - Otitis media, unspecified, bilateral Instructions Patient Instructions: DI for Sinusitis, Middle Ear Infection Discharge ED Provider: Ban Cannon [facility] HPI General Stated complaint: cough, [place], ear pain, body aches Time Seen by Provider: 04/17/23 15:27 History of Present Illness Provider Complaint: Patient states that she was recently exposed to the flu States that for over a week she has been having pain in both ears, nasal congestion and cough States that since yesterday she started with body aches, chills and headache so she came in to get checked Related Data Home Medications Medication Instructions Recorded Confirmed atorvastatin 10 mg tablet 10 mg PO HS 04/17/23 04/17/23 hydrochlorothiazide 25 mg tablet 12.5 mg PO DAILY 04/17/23 04/17/23 lisinopril 20 mg tablet 20 mg PO DAILY 04/17/23 04/17/23 venlafaxine 150 mg 150 mg PO DAILY 04/17/23 04/17/23 capsule,extended release 24 hr Previous Rx's Medication Instructions Recorded amoxicillin 875 mg-potassium 1 tab PO Q12H #20 tabs 04/17/23 clavulanate 125 mg tablet fluticasone propionate 50 2 spray intranasal DAILY #16 grams 04/17/23 mcg/actuation nasal spray,suspension (Flonase Allergy Relief) Allergies Allergy/AdvReac Type Severity Reaction Status Date / Time No Known Allergies Allergy Verified 03/11/23 14:42 [facility] Disclaimer: The information contained in this section may have been updated after the patient was seen, as this information can be updated by other users. Medical History (Updated 04/17/23 @ 16:10 by Ban Cannon APRN) Bronchitis COVID-19 Exposure to COVID-19 virus Generalized anxiety disorder Influenza A Laceration of right hand Major depressive disorder MDD (major depressive disorder), recurrent episode, moderate OCD (obsessive compulsive disorder) Pharyngitis Sore throat Viral upper respiratory illness Surgical History (Updated 03/10/23 @ 14:55 by Jesus Baez) No significant past surgical history Family History (Updated 03/10/23 @ 14:55 by Jesus Baez) Other No significant family history Social History Smoking Status: Never smoker alcohol intake: current substance use type: denies use current occupational status: employed Travel in the last 8 weeks: None household members: family housing: house number of children: 1 ROS Obtained: Yes All systems reviewed & no additional complaints except as documented and Yes Systems reviewed as appropriate & no additional complaints except as documented Constitutional Constitutional: Reports system reviewed and no additional complaints, except as documented, Reports as per HPI, Reports body ache, Reports chills, Reports fever(s) and Reports headache(s) ENT Ears, Nose, Mouth, and Throat: Reports system reviewed and no additional complaints, except as documented, Reports as per HPI, Reports otalgia, Reports headache(s), Reports nasal congestion, Reports sinus pressure and Reports sore throat Cardiovascular Cardiovascular: Reports system reviewed and no additional complaints, except as documented and Reports as per HPI Respiratory Respiratory: Reports system reviewed and no additional complaints, except as documented, Reports as per HPI and Reports cough Gastrointestinal Gastrointestingal: Reports system reviewed and no additional complaints, except as documented and as per HPI Neurologic Neurologic: Reports headache(s) Physical Exam General General appearance: alert and in no apparent distress ENT ENT exam: Present mucous membranes moist Expanded ENT Exam TM/Canal exam: Bilateral TM: erythema and bulging Nose exam: Present sinus tenderness Throat exam: Present tonsillar erythema Respiratory Respiratory exam: Present normal lung sounds bilaterally; Absent respiratory distress or wheezes Cardiovascular Cardiovascular exam: Present regular rate, normal rhythm and normal heart sounds Neurological Exam Neurological exam: Present alert, oriented X3 and normal gait Medical Decision Making Pal Inquiry Pt receiving controlled substance: No Pal was queried for this patient: No Lab Data Lab results reviewed: Yes I reviewed the patient's lab results.
[2023-04-17 16:11] VITALS: BP 148/96; PULSE 103; RESP 19; TEMP 36.9; O2SAT 99
[2023-04-17 16:11] LABS: UTC Influenza A Antigen Negative (Negative); UTC Influenza B Antigen Negative (Negative)
== END 2023-04-17 16:17 | disposition home or self-care (01) ==
PROVIDERS: Emergency Provider Nurse Practitioner; PCP Nurse Practitioner Family
DX: H66.93 Otitis media, unspecified, bilateral (principal); J01.90 Acute sinusitis, unspecified; R51.9 Headache, unspecified; R05.9 Cough, unspecified; R09.81 Nasal congestion
CPT/HCPCS: 87804; 99212; 99214; G0463

== ENCOUNTER 2024-08-08 17:27 | Emergency (ER) | payer SELFPAY ==
[2024-08-08 18:00] VITALS: BP 162/88; PULSE 83; RESP 18; TEMP 36.7; O2SAT 100; BMI 59.9
--- NOTE | 2024-08-08 18:05 | XR_ITS ---
PROCEDURE INFORMATION: Exam: XR Right Foot Exam date and time: 08/08/2024 6:11 PM Age: 34 years old Clinical indication: Injury or trauma; Fall; Sprain or strain; Foot; Right; Additional info: Right foot/ankle eversion injury TECHNIQUE: Imaging protocol: Radiologic exam of the right foot. Views: 3 or more views. COMPARISON: CR XR FOOT RT MIN 3V 08/08/2024 6:11 PM FINDINGS: Bones/joints: Fragmented appearance of the anterior process of the calcaneus may represent minimally displaced avulsion fracture. Intermediate sized enthesophytes involving the calcaneus. Soft tissues: Normal. IMPRESSION: Fragmented appearance of the anterior process of the calcaneus may represent minimally displaced avulsion fracture.
--- NOTE | 2024-08-08 18:06 | XR_ITS ---
PROCEDURE INFORMATION: Exam: XR Right Ankle Exam date and time: 08/08/2024 6:11 PM Age: 34 years old Clinical indication: Difficulty in walking and limp and swelling, leg or foot; Additional info: Right foot/ankle eversion injury. TECHNIQUE: Imaging protocol: Radiologic exam of the right ankle. Views: 3 or more views. COMPARISON: CR XR FOOT RT MIN 3V 08/08/2024 6:11 PM FINDINGS: Bones/joints: Fragmented appearance of the anterior process of the calcaneus may represent minimally displaced avulsion fracture. Intermediate sized enthesophytes involving the calcaneus. Soft tissues: Moderate soft tissue swelling of the ankle. IMPRESSION: Fragmented appearance of the anterior process of the calcaneus may represent minimally displaced avulsion fracture.
--- OUTSIDE RECORDS SUMMARY | 2024-08-08 18:09 | XMS_ITS | Clinical Summary ---
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 Name Role Phone Unavailable Primary Care Provider Unavailabl e Allergies No known active allergies Medications No known medications Social History Tobacco Use Types Packs/Day Years Used Date Smoking Tobacco: Never Smokeless Tobacco: Never Alcohol Use Standard Drinks/Week Comments Yes 0 (1 standard drink = 0.6 oz pur e alcohol) once a month Comments No Sex and Gender Information Value Date Recorded Sex Assigned at Not on file Legal Sex Female 6:15 PM EDT Gender Identity Not on file Sexual Orientation Not on file Last Filed Vital Signs Vital Sign Reading Time Taken Comments Blood Pressure 122/66 09/16/2012 6:28 PM EDT Pulse 92 09/16/2012 6:28 PM EDT Temperature 36.7 C (98.1 F) 09/16/2012 6:28 PM EDT Respiratory Rate 16 09/16/2012 6:28 PM EDT Oxygen Saturation 100% 09/16/2012 6:28 PM EDT Inhaled Oxygen Concentration - - Weight 77.1 kg (170 lb) 09/16/2012 6:25 PM EDT Height 162.6 cm (5' 4 ) 09/16/2012 6:25 PM EDT Body Mass Index 29.18 09/16/2012 6:25 PM EDT Plan of Treatment Not on file Advance Directives Documents on File Type Date Recorded 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
--- OUTSIDE RECORDS SUMMARY | 2024-08-08 18:09 | XMS_ITS | Clinical Summary ---
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 Name Role Phone Pcp, No Primary Care Provider Unavailabl e Allergies No known active allergies Immunizations Immunization Administration Dates Next Due Hep A, Unspecified 02/02/2019,01/15/2018 Influenza, Unspecified 12/17/2018,12/17/2016 Influenza, injectable, quadrivalent, preservativ e free 12/26/2020 Rabies Immune Globulin 06/13/2022 Rabies, intramuscular 06/13/2022 Tdap 06/13/2022,2015 Social History Tobacco Use Types Packs/Day Years Used Date Smoking Tobacco: Never Assessed Comments Unknown Sex and Gender Information Value Date Recorded Sex Assigned at Not on file Legal Sex Female 6:25 PM EDT Gender Identity Not on file Sexual Orientation Not on file Last Filed Vital Signs Vital Sign Reading Time Taken Comments Blood Pressure 138/87 06/13/2022 11:19 PM EDT Pulse 92 06/13/2022 11:19 PM EDT Temperature 36.8 C (98.3 F) 06/13/2022 9:19 PM EDT Respiratory Rate 17 06/13/2022 11:19 PM EDT Oxygen Saturation 97% 06/13/2022 11:19 PM EDT Inhaled Oxygen Concentration - - Weight 147 kg (325 lb) 06/13/2022 9:19 PM EDT Height - - Body Mass Index - - Plan of Treatment Health Maintenance Due Date Last Done Comments [facility]-Depression Screening 1989 [facility]-HIV Screening 1989 [facility]-Hepatitis C Screening 1989 [facility]-Infant/Child/Adol SDOH Screenings 1989 [facility]-Varicella Vaccines (1 of 2 - 13+ 2-dose series) 2002 HPV Vaccines (1 - 3-dose series) 2004 [facility]- SDOH Screenings 06/04/2007 [facility]-Adult SDOH Screenings 06/04/2007 [facility]-Hepatitis B Vaccines (1 of 3 - 19+ 3-dose series) 2008 [facility]-Pap Smear 2010 [facility]-Cervical Cancer Screening 06/04/2019 [facility]-HPV/Cotest 06/04/2019 [id number] Vaccine (3 - 2023- season) 2023 02/02/2021, 01/12/2021 [facility]-Influenza Vaccine (Season Ended) 2024 12/26/2020, 12/17/2018, 12/17/2016 [facility]-DTaP,Tdap,and Td Vaccines (4 - Td or Tdap) 06/13/2032 06/13/2022, 04/24/2021, 2015 [facility]-Zoster Vaccines (1 of 2) 06/04/2039 [facility]-Hepatitis A Vaccines Aged Out 019, 01/15/2018 No longer eligible based on patient's age to complete this topic [facility]-HIB Vaccines Aged Out No longer e ligible based on patient's age to complete this topic [facility]-IPV Vaccines Aged Out No longer e ligible based on patient's age to complete this topic [facility]-Pneumococcal Vaccine: Pediatrics (0 to 5 Years) and At-Risk Patients (6 to 49 Years) Aged Out No longer eligible b ased on patient's age to complete this topic [facility]-Rotavirus Vaccines Aged Out No lo nger eligible based on patient's age to complete this topic Insurance [facility] [facility] MEDICAID Care Teams Paper Cup Machine Operator Relationship Specialty Start Date End Date Pcp, [place] [address] PCP - General Family Medicine 06/13/22
--- NOTE | 2024-08-08 18:10 | ED_ITS ---
Discharge Plan Disposition Patient Disposition: Home, Self-Care Condition: Good Prescriptions Prescriptions: No Action lamotrigine [Lamictal] 100 mg tablet 100 mg PO DAILY Qty: 30 2RF venlafaxine [Effexor XR] 75 mg capsule,extended release 24hr 75 mg PO DAILY Qty: 30 2RF Rx Instructions: Take with the 150 mg capsule daily. hydrochlorothiazide 25 mg tablet 12.5 mg PO DAILY Qty: 90 0RF Rx Instructions: Needs appointment for further refills lisinopril 20 mg tablet See Rx Instructions .ROUTE .COMPLEX Qty: 90 0RF Dose Instruction: Take 1 tablet by mouth once daily Rx Instructions: Take 1 tablet by mouth once daily lamotrigine [Lamictal] 25 mg tablet 25 mg PO DAILY Qty: 30 2RF Rx Instructions: Take with Lamotrigine 100 mg daily. venlafaxine 150 mg capsule,extended release 24hr 150 mg PO DAILY Qty: 30 2RF atorvastatin 10 mg tablet See Rx Instructions .ROUTE .COMPLEX Qty: 90 0RF Dose Instruction: Take 1 tablet by mouth once daily Rx Instructions: Take 1 tablet by mouth once daily Referrals Follow up/Referrals: Jr Li APRN [Primary Care Provider, Family Practice] - See instructions Clinical Impressions Clinical Impression: Mild sprain of right ankle Instructions Patient Instructions: DI for Ankle Sprain Print Language Print Language: Kinyarwanda Discharge ED Provider: Shelton Grant [facility] Adult HPI <MILAD Ruiz - Last Filed: 08/08/24 18:31> General Chief complaint: PAIN Stated complaint: A/O 6-5 fell in hole twisted rt foot, swollen Time Seen by Provider: 08/08/24 18:02 Mode of Arrival: Ambulatory Source of Information: Patient Limitations: No Limitations History of Present Illness HPI narrative: 34-year-old female presents to the emergency department with a 4-day history of right foot/ankle pain, patient states that last she was walking down a hill , when she tripped and fell in a hole , sustained what sounds like inversion injury, patient has been utilizing Motrin and Tylenol, rest ice and elevation with some degree/relief of her symptomatology. She has been ambulating but is quite pain limited. She denies any fever chills, denies striking her head, denies any back pain, no radicular side to neurotology, urinary bladder or bowel dysfunction, has no other acute complaints, other past medical history consistent with OCD, MDD, SHUBHAM, hyperlipidemia, hypertension, patient denies any tobacco use alcohol use or drug use initial triage vitals unremarkable. Onset (ago): day(s) Related Data Previous Rx's ?Medication ?Instructions ?Recorded lamotrigine 100 mg tablet 100 mg PO DAILY #30 tabs (Lamictal) venlafaxine 75 mg capsule,extended 75 mg PO DAILY #30 caps 12/29/23 release 24 hr (Effexor XR) hydrochlorothiazide 25 mg tablet 12.5 mg (1/2 x 25 mg) PO DAILY #90 01/16/24 tabs lisinopril 20 mg tablet See Rx Instructions .Route 0 03/02/24 .COMPLEX #90 tabs lamotrigine 25 mg tablet (Lamictal) 25 mg PO DAILY #30 tabs 04/27/24 venlafaxine 150 mg 150 mg PO DAILY #30 caps capsule,extended release 24 hr atorvastatin 10 mg tablet See Rx Instructions .Route 0 08/01/24 .COMPLEX #90 tabs Allergies Allergy/AdvReac Type Severity Reaction Status Date / Time No Known Allergies Allergy Verified 11/30/23 15:53 [facility] <MILAD Ruiz - Last Filed: 08/08/24 18:31> [facility] Disclaimer: The information contained in this section may have been updated after the patient was seen, as this information can be updated by other users. Medical History OCD (obsessive compulsive disorder) Maisha claims that she has to have things in order. When things are out of order, she feels anxious and irritable. MDD (major depressive disorder), recurrent episode, moderate Influenza A Generalized anxiety disorder Major depressive disorder Pharyngitis COVID-19 Exposure to COVID-19 virus Viral upper respiratory illness Sore throat Laceration of right hand Bronchitis Surgical History No significant past surgical history Family History Other No significant family history Social History Smoking Status: Never smoker alcohol intake: current alcohol intake frequency: holidays/special occasions only substance use type: denies use current occupational status: employed Travel in the last 8 weeks?: None household members: family housing: house number of children: 1 Have you lived/traveled outside US in past 30 days?: No Contact w/someone who lives/traveled outside US past 30 days?: No Exposure to someone with infectious disease in past 14 days?: No Do you have a fever (greater than 100.4 F or 38 C)?: No Have you tested positive for COVID-19?: No Exposed to someone with COVID-19 in past 14 days?: No Do you have a sore throat?: No Do you have a cough?: No Do you have any weakness?: No Do you have any diarrhea?: No Are you experiencing any unusual bleeding?: No Do you have any muscle aches/pain?: No Do you have any abdominal pain?: No Are you experiencing loss of taste or smell?: No Other Medical History Have you received the Flu Vaccine for this season: Yes Have you received the Pneumonia Vaccine: No <MILAD Ruiz - Last Filed: 08/08/24 18:31> ROS Obtained: Yes All systems reviewed & no additional complaints except as documented Physical Exam <MILAD Ruiz - Last Filed: 08/08/24 18:31> General General appearance: alert and in no apparent distress Head Head exam: atraumatic and normocephalic Eye Eye exam: Present PERRL and EOMI ENT ENT exam: Present mucous membranes moist Neck Neck exam: Present normal inspection Chest Chest inspection: Present normal inspection and symmetric chest wall rise Respiratory Respiratory exam: Present normal lung sounds bilaterally; Absent respiratory distress Cardiovascular Cardiovascular exam: Present regular rate and normal rhythm Abdominal Exam Abdominal exam: Present soft; Absent tenderness Extremities Exam Extremities exam: Present normal inspection, tenderness, edema and other (There is obvious ecchymosis, and lower extremity edema around the right ankle, some pain in the patient to the dorsal aspect of the foot and lateral malleolus, with some decreased/pain limiting range of motion, levels neurovascular intact.); Absent full ROM Neurological Exam Neurological exam: Present alert and oriented X3 Psychiatric Psychiatric exam: Present normal affect Skin Skin exam: Present warm and dry Medical Decision Making <MILAD Ruiz - Last Filed: 08/08/24 18:31> Medical Records Medical records reviewed: Yes I reviewed the patient's medical records. Screening: Per USPSTF and CDC recommendations, given the prevalence of disease in our region, it is our hospital?s policy to screen for HIV and viral Hepatitis for all patients aged 18 and over and those with ongoing risk factors. Pal Inquiry Pt receiving controlled substance: No Pal was queried for this patient: No Vital Signs: 08/08/24 18:00 08/08/24 18:38 Temperature 98.0 F 98.2 F Temperature Source Oral Oral Pulse Rate 88 Pulse Rate [Radial] 83 Respiratory Rate 18 18 Blood Pressure 140/80 Blood Pressure [Right Arm] 162/88 H Blood Pressure Mean [Right Arm] 112 Blood Pressure Source Automatic Cuff Blood Pressure Source [Right Arm] Automatic Cuff Blood Pressure Position Sitting Blood Pressure Position [Right Arm] Sitting 02 Sat by Pulse Oximetry 100 Oxygen Delivery Method Room Air Room Air Orders (Tests/Meds): ORDERS Category Date Time Status XR ankle RT min 3V Stat Exams 08/08/24 18:06 Completed XR foot RT min 3V Stat Exams 08/08/24 18:05 Completed Medical Decision Narrative: 34-year-old female presents emergency department with a right ankle/right foot inversion injury, differential diagnose include but not limited to ankle sprain, foot sprain, Rojo fracture, pseudo Rojo fracture, ankle fracture. Discussed patient case with attending physician Will obtain x-ray of the foot on the right, x-ray of the ankle on the right, for further evaluation/characterization. I along with the attending physician reviewed and independently interpreted the patient's foot x-ray and ankle x-ray on the right, no acute bony abnormality, and no acute fracture or traumatic malalignment. I discussed these results/recommendations with patient and pain at the bedside, offered to have patient wait for the formal radiology report, however patient would like to pursue outpatient treatment I think this appropriate shared decision-making was utilized. I recommend rest ice compression elevation, continue to ambulate on affected, I did offer the patient crutches/assistive devices, she declined at this time. Patient will follow with PCP in the upcoming days and will call patient with any acute changes noted on radiology r eport. Strict ED return precaution given. Patient and family voiced understanding and are in agreement with current treatment plan/discharge plan. <Shelton Grant MD - Last Filed: 08/08/24 23:19> Vital Signs: 08/08/24 18:00 08/08/24 18:38 Temperature 98.0 F 98.2 F Temperature Source Oral Oral Pulse Rate 88 Pulse Rate [Radial] 83 Respiratory Rate 18 18 Blood Pressure 140/80 Blood Pressure [Right Arm] 162/88 H Blood Pressure Mean [Right Arm] 112 Blood Pressure Source Automatic Cuff Blood Pressure Source [Right Arm] Automatic Cuff Blood Pressure Position Sitting Blood Pressure Position [Right Arm] Sitting 02 Sat by Pulse Oximetry 100 Oxygen Delivery Method Room Air Room Air Orders (Tests/Meds): ORDERS Category Date Time Status XR ankle RT min 3V Stat Exams 08/08/24 18:06 Completed XR foot RT min 3V Stat Exams 08/08/24 18:05 Completed Medical Decision Narrative: 34-year-old female presents emergency department with a right ankle/right foot inversion injury, differential diagnose include but not limited to ankle sprain, foot sprain, Rojo fracture, pseudo Rojo fracture, ankle fracture. Discussed patient case with attending physician Will obtain x-ray of the foot on the right, x-ray of the ankle on the right, for further evaluation/characterization. I along with the attending physician reviewed and independently interpreted the patient's foot x-ray and ankle x-ray on the right, no acute bony abnormality, and no acute fracture or traumatic malalignment. I discussed these results/recommendations with patient and pain at the bedside, offered to have patient wait for the formal radiology report, however patient would like to pursue outpatient treatment I think this appropriate shared decision-making was utilized. I recommend rest ice compression elevation, continue to ambulate on affected, I did offer the patient crutches/assistive devices, she declined at this time. Patient will follow with PCP in the upcoming days and will call patient with any acute changes noted on radiology report. Strict ED return precaution given. Patient and family voiced understanding and are in agreement with current treatment plan/discharge plan. JESSICA attestation I was consulted by the JESSICA, and we discussed the complexity of problems being addressed. I approved the treatment and management plan for this patient's care in the emergency department, thus performing a substantial portion of the medical decision making. I had also evaluated the patient and independently interpreted her images, reve aling no significant acute fracture. The patient had expressed a desire to be discharged and JESSICA provider had offered for the patient to wait for final radiology report however she wished to be discharged and follow-up results later. Patient was ambulatory and had already been walking on injury for a few days. Following discharge, radiology report noted a subtle minimally displaced anterior calcaneal fracture. I called the patient back and she reported back to the ER and attempted to place her in a walking boot, however none of the walking boots fit her due to the size of her calf. She was ultimately placed in a short leg splint with stirrups and discharged with plan for Ortho follow-up. Shelton Grant MD Procedures <Shelton Grant MD - Last Filed: 08/08/24 23:19> Orthopedic Splinting/Casting Injury #1: Side: right Lower Extremity Injury Location: ankle Lower Extremity Immobilizer: posterior splint (With stirrups) and applied by nurse/dr sim Other Orthopedic Equipment: crutches Post Cast/Splinting Neuro Status: intact and no change Post Cast/Splinting Vasc Status: intact and no change Critical Care <MILAD Ruiz - Last Filed: 08/08/24 18:31> Critical Care Time Critical Care Time: No
--- NOTE | 2024-08-08 18:15 | PC.NURSE ---
XR AT BEDSIDE
[2024-08-08 18:38] VITALS: BP 140/80; PULSE 88; RESP 18; TEMP 36.8; O2SAT 100
== END 2024-08-08 18:38 | disposition home or self-care (01) ==
PROVIDERS: Emergency Provider Student in an Organized Health Care Education/Training Program; PCP Nurse Practitioner Family
DX: S92.021A Displaced fracture of anterior process of right calcaneus, initial encounter for closed fracture (principal); S93.401A Sprain of unspecified ligament of right ankle, initial encounter; W17.2XXA Fall into hole, initial encounter
CPT/HCPCS: 29515; 73610; 73630; 99284

== ENCOUNTER 2024-10-28 17:19 | Inpatient (IN) | payer SELFPAY ==
[2024-10-28] VITALS (10 sets, daily range): BP systolic 125–154; BP diastolic 84–98; PULSE 107–130; RESP 18–26; TEMP 37–37.1; O2SAT 89–98; BMI 58.2
--- NOTE | 2024-10-28 17:26 | ECG_ITS ---
APPROVED REPORT Exam: Resting ECG HR:134 bpm ECG Measurements Heart Rate 134 AXES NV 143 P 76 QRSd 90 QRS 69 QT 331 T 80 QTc 410 Conclusion SINUS TACHYCARDIA LOW QRS VOLTAGE IN PRECORDIAL LEADS [QRS DEFLECTION < 1.0 mV IN CHEST LEADS] NONSPECIFIC T-WAVE ABNORMALITY ABNORMAL RHYTHM ECG Electronically signed by : TEQUILA FLORES, 10/29/2024 00:12:12
--- OUTSIDE RECORDS SUMMARY | 2024-10-28 17:31 | XMS_ITS | Clinical Summary ---
Author Organization [facility] Address [address] [place] [address], [address] [place] [address] Care Team Providers Care Talent Acquisition Coordinator Name Role Phone Unavailable Primary Care Provider [...] Documents on File Type Date Recorded Patient Byproducts Pump Operator Expl anation ACP-Advance Directive 09/16/2012 6:19 PM
--- OUTSIDE RECORDS SUMMARY | 2024-10-28 17:31 | XMS_ITS | Clinical Summary ---
Author Organization [facility] Address [address] [place] [address] Care Team Providers Care Carbon Brush Maker Name Role Phone Pcp, No Primary Care [...] of 2 - 13+ 2-dose series) 2002 [facility]- SDOH Screenings 06/04/2007 [facility]-Adult SDOH Screenings 06/04/2007 [facility]-Hepatitis B Vaccines (1 of 3 - 19+ 3-dose series) 2008 [facility]-Pap Smear 2010 HPV Vaccines (1 - 3-dose SCDM series) 2016 [facility]-Cervical Cancer Screening 06/04/2019 [facility]-HPV/Cotest 06/04/2019 [id number] Vaccine (3 - 2023- season) 2023 02/02/2021, 01/12/2021 [facility]-Influenza Vaccine (#1) 10/31/202412/26, 12/17/2018, 12/17/2016 [facility]-DTaP,Tdap,and Td Vaccines (4 - [...] patient's age to complete this topic Insurance [facility] [employer] [facility] MEDICAID Care Teams Carbon Brush Maker Relationship Specialty Start [place] [address] PCP - General Family Medicine 06/13/22
--- NOTE | 2024-10-28 17:39 | CT_ITS ---
PROCEDURE INFORMATION: Exam: CTA Chest With Contrast Exam date and time: 10/28/2024 6:25 PM Age: 34 years old Clinical indication: Shortness of breath and tachypnea; Additional info: SOB tachy leg pain TECHNIQUE: Imaging protocol: Computed tomographic angiography of the chest with contrast. Exam focused on the arteries. 3D rendering (Not supervised by radiologist): MIP and/or 3D reconstructed images were created by the technologist. Radiation optimization: All CT scans at this facility use at least one of these dose optimization techniques: automated exposure control; mA and/or kV adjustment per patient size (includes targeted exams where dose is matched to clinical indication); or iterative reconstruction. Contrast material: ISOVUE; Contrast volume: 80 ml; Contrast route: INTRAVENOUS (IV); COMPARISON: CT ANGIO CHEST PE PROTOCOL 11/18/2022 12:54 AM FINDINGS: Pulmonary arteries: Large pulmonary embolus noted in the distal right main pulmonary artery with extension into the right upper lobe pulmonary artery and proximal segmental branches and through the interlobar pulmonary artery into the left lower lobe segmental and subsegmental branches and into a right middle lobe segmental and subsegmental branch. Large pulmonary embolus noted in the distal left main pulmonary artery with extension into left upper lobe pulmonary artery and proximal segmental branches superiorly and anteriorly and into the left lower lobe pulmonary artery and multiple segmental and subsegmental branches. Aorta: Unremarkable. No aortic aneurysm. No aortic dissection. Lungs: Interval development of a 8 mm subpleural nodule in the posteroinferior lateral lingula on image 76 of series 5. Lung otherwise clear. Pleural spaces: Unremarkable. No pneumothorax. No pleural effusion. Heart: Unremarkable. No cardiomegaly. No pericardial effusion. Heart RV/LV ratio: RV/LV ratio 1.2 (nomal range 0.6 - 1.0) Lymph nodes: Unremarkable. No enlarged lymph nodes. Bones/joints: Unremarkable. No acute fracture. Soft tissues: Unremarkable. IMPRESSION: 1. Extensive bilateral PE involving the distal aspects of both main pulmonary arteries with extension into all lobes. Associated right ventricular strain. 2. Interval development of an 8 mm subpleural nodule in the inferolateral lingula region. Advise follow-up CT in 3 to 6 months to ensure stability. 3. Interval development of a 8 mm subpleural nodule in the posteroinferior lateral lingula on image 76 of series 5.
--- NOTE | 2024-10-28 17:45 | XR_ITS ---
PROCEDURE INFORMATION: Exam: XR Chest Exam date and time: 10/28/2024 5:47 PM Age: 34 years old Clinical indication: Shortness of breath; Additional info: SOB TECHNIQUE: Imaging protocol: Radiologic exam of the chest. Views: 1 view. COMPARISON: CT ANGIO CHEST PE PROTOCOL 11/18/2022 12:54 AM FINDINGS: Lungs: Unremarkable. No consolidation. Pleural spaces: Unremarkable. No pleural effusion. No pneumothorax. Heart/Mediastinum: Unremarkable. No cardiomegaly. Bones/joints: Unremarkable. IMPRESSION: Stable chest x-ray with no acute disease.
[2024-10-28 18:00] LABS: Adenovirus,PCR Not Detected (NotDetected); Chlamydophila Pneumoniae, PCR Not Detected (NotDetected); Coronavirus 19, PCR Not Detected (NotDetected); Coronovirus HKU1,PCR Not Detected (NotDetected); Influenza A, PCR Not Detected (NotDetected); Influenza AH1, 2009 Not Detected (NotDetected); Influenza AH1, PCR Not Detected (NotDetected); Influenza AH3,PCR Not Detected (NotDetected); Influenza B, PCR Not Detected (NotDetected); Mycoplasma Pneumoniae, PCR Not Detected (NotDetected); Parainfluenza 1, PCR Not Detected (NotDetected); Parainfluenza 2, PCR Not Detected (NotDetected); Parainfluenza 3, PCR Not Detected (NotDetected); Parainfluenza 4, PCR Not Detected (NotDetected)
--- NOTE | 2024-10-28 18:06 | ED_ITS ---
Discharge Plan Disposition Patient Disposition: Home, Self-Care Prescriptions Prescriptions: No Action venlafaxine [Effexor XR] 75 mg capsule,extended release 24hr 75 mg PO DAILY Qty: 30 2RF Rx Instructions: Take with the 150 mg capsule daily. hydrochlorothiazide 25 mg tablet 12.5 mg PO DAILY Qty: 90 0RF Rx Instructions: Needs appointment for further refills atorvastatin 10 mg tablet See Rx Instructions .ROUTE .COMPLEX Qty: 90 0RF Dose Instruction: Take 1 tablet by mouth once daily Rx Instructions: Take 1 tablet by mouth once daily lisinopril 20 mg tablet See Rx Instructions .ROUTE .COMPLEX Qty: 90 0RF Dose Instruction: Take 1 tablet by mouth once daily Rx Instructions: Take 1 tablet by mouth once daily lamotrigine [Lamictal] 100 mg tablet 100 mg PO DAILY Qty: 30 2RF lamotrigine [Lamictal] 25 mg tablet 25 mg PO DAILY Qty: 30 2RF Rx Instructions: Take with Lamotrigine 100 mg daily. venlafaxine 150 mg capsule,extended release 24hr 150 mg PO DAILY Qty: 30 2RF Referrals Follow up/Referrals: Jr Li APRN [Primary Care Provider, Family Practice] - See instructions Clinical Impressions Clinical Impression: Pulmonary embolism, Elevated brain natriuretic peptide (BNP) level, Pulmonary nodule Print Language Print Language: Wallisian Discharge ED Provider: Anselmo Crenshaw [facility] General Chief Complaint: Shortness of Breath/Dyspnea Stated Complaint: SOA, pain in L leg, loose stools, congested Time Seen by Provider: 10/28/24 17:28 Mode of Arrival: Ambulatory Source of Information: Patient Description of Symptoms (Recalled from ER Triage Doc. by RN): Pt presents with c/o shortness of breath that started 1 week ago. Pt states she was initially short of breath with exertion but it has now progressed to being constant. She reports having left calf cramping for one week. History of Present Illness HPI narrative: Patient is a 34-year-old female with past medical history of previous pneumonia requiring hospitalization for 1 week who presents emergency department for evaluation of cough shortness of breath left lower extremity pain. History is obtained by patient at bedside. She had cramping initially in her calf approximately 1 week ago and has developed cough, shortness of breath that has been progressively worse and now is occurring at rest. Her calf pain is since extended into her proximal thigh. No trauma. No fever reported. She has chest discomfort but no explicit substernal chest pain. No sick contacts reported. No surgical history in the chest. No other acute complaints at this time. Please note that above description of symptoms, in this electronic medical record under categorization of recalled from ER triage doctor by RN are reflective of an initial nursing assessment, however, is not reflective of my full history and physical exam that was personally taken and clarified. Consequentially, this preceding description of symptoms, which may include the patient's categorized chief complaint in the EMR, do not reflect my personal clinical impression, and the ultimate description of history of present illness and patient stated complaints should be deferred to this section of the note. Unless stated otherwise or congruent with this section of the note, additional signs, symptoms, or incongruence should be interpreted as inaccurate with my clinical impression. Related Data Previous Rx's ?Medication ?Instructions ?Recorded venlafaxine 75 mg capsule,extended 75 mg PO DAILY #30 caps 12/29/23 release 24 hr (Effexor XR) hydrochlorothiazide 25 mg tablet 12.5 mg (1/2 x 25 mg) PO DAILY #90 01/16/24 tabs atorvastatin 10 mg tablet See Rx Instructions .Route 0 08/01/24 .COMPLEX #90 tabs lamotrigine 100 mg tablet 100 mg PO DAILY #30 tabs (Lamictal) lamotrigine 25 mg tablet (Lamictal) 25 mg PO DAILY #30 tabs 08/15/24 lisinopril 20 mg tablet See Rx Instructions .Route 0 08/15/24 .COMPLEX #90 tabs venlafaxine 150 mg 150 mg PO DAILY #30 caps 10/24 capsule,extended release 24 hr Allergies Allergy/AdvReac Type Severity Reaction Status Date / Time No Known Allergies Allergy Verified 11/30/23 15:53 [facility] Disclaimer: The information contained in this section may have been updated after the patient was seen, as this information can be updated by other users. Medical History OCD (obsessive compulsive disorder) Maisha claims that she has to have things in order. When things are out of order, she feels anxious and irritable. MDD (major depressive disorder), recurrent episode, moderate Influenza A Generalized anxiety disorder Major depressive disorder Pharyngitis COVID-19 Exposure to COVID-19 virus Viral upper respiratory illness Sore throat Laceration of right hand Bronchitis Surgical History No significant past surgical history Family History Other No significant family history Social History Smoking Status: Never smoker alcohol intake: current alcohol intake frequency: holidays/special occasions only substance use type: denies use current occupational status: employed Travel in the last 8 weeks?: None household members: family housing: house number of children: 1 Have you lived/traveled outside [place] in past 30 days?: No Contact w/someone who lives/traveled outside [place] past 30 days?: No Exposure to someone with infectious disease in past 14 days?: No Do you have a fever (greater than 100.4 F or 38 C)?: No Have you tested positive for COVID-19?: No Exposed to someone with COVID-19 in past 14 days?: No Do you have a sore throat?: No Do you have a cough?: No Do you have any weakness?: No Do you have any diarrhea?: No Are you experiencing any unusual bleeding?: No Do you have any muscle aches/pain?: No Do you have any abdominal pain?: No Are you experiencing loss of taste or smell?: No Other Medical History Have you received the Flu Vaccine for this season: Yes Have you received the Pneumonia Vaccine: No ROS Obtained: Yes Systems reviewed as appropriate & no additional complaints except as documented Physical Exam General General appearance: alert Comment: Appearing dyspneic in bed Head Head exam: atraumatic and normocephalic Eye Eye exam: Present PERRL and EOMI ENT ENT exam: Present mucous membranes moist Neck Neck exam: Present normal inspection Chest Chest inspection: Present normal inspection and symmetric chest wall rise Respiratory Respiratory exam: Present normal lung sounds bilaterally; Absent respiratory distress Cardiovascular Cardiovascular exam: Present normal rhythm and tachycardia Abdominal Exam Abdominal exam: Present soft; Absent tenderness Extremities Exam Extremities exam: Present normal inspection Neurological Exam Neurological exam: Present alert Psychiatric Psychiatric exam: Present normal affect Skin Skin exam: Present warm and dry HEART Score HEART Score HEART Score assessment performed?: Yes History (anamnesis): Moderately suspicious ECG: Non-specific disturbance Age: <45 years Risk factors: No known risk factors Troponin: </= normal limit HEART Score: 2 Critical Care Critical Care Time Critical Care Time: Yes Attestation: On 10/28/24, the high probability of a clinically significant, sudden or life threatening deterioration of the following system(s) required my full and direct attention, intervention and personal management. The time I documented below is in addition to time spent performing reported procedures but includes the following listed in this critical care notation. Total Time Total Critical Care Time: 45 Medical Decision Making Pal Inquiry Pt receiving controlled substance: No Vital Signs Vital Signs: 10/28/24 17:36 Temperature 98.6 F Temperature Source Oral Pulse Rate [Right] 130 H Respiratory Rate 26 H Blood Pressure [Right Arm] 141/98 H Blood Pressure Mean [Right Arm] 112 Blood Pressure Source [Right Arm] Automatic Cuff Blood Pressure Position [Right Arm] Sitting 02 Sat by Pulse Oximetry 98 Oxygen Delivery Method Room Air Lab Data Labs: Lab Results 10/28/24 17:40: VBG pH 7.38, VBG pCO2 32.9 L, VBG pO2 48.2 H, VBG HCO3 19.1 L, V BG Total CO2 20.1 L, VBG O2 Saturation 82.4 H, VBG Base Excess -6.0 L, VBG Lactic Acid 1.4 10/28/24 18:00: WBC 13.3 H, RBC 4.55, Hgb 13.0, Hct 38.9, MCV 85.5, MCH 28.6, MCHC 33.4, RDW 14.6, Plt Count 220, MPV 10.8 H, Neut % (Auto) 68.4, Lymph % (Auto) 23.5, Walsh % (Auto) 5.7, Eos % (Auto) 1.2, Baso % (Auto) 0.7, Neut # (Auto) 9.1 H, Lymph # (Auto) 3.1, Walsh # (Auto) 0.8, Eos # (Auto) 0.2, Baso # (Auto) 0.1, APTT 25.6 L, Sodium 135 L, Potassium 3.8, Chloride 107, Carbon Dioxide 19 L, Anion Gap 12.8, BUN 12, Creatinine 0.80, Estimated Creat Clear 88, Estimated GFR 82, Est GFR ( Amer) 99, Glucose 106 H, Lactate 0.9, Calcium 9.7, Total Bilirubin 0.8, AST 42 H, ALT 29, Alkaline Phosphatase 88, Troponin I 0.02, C-Reactive Protein 49.4 H, NT-Pro-B Natriuret Pep 2330 H, Total Protein 7.8, Albumin 4.7, Globulin 3.1, Albumin/Globulin Ratio 1.5, TSH 1.91, Free T4 1.86, Serum HCG, Qual Negative 10/28/24 18:00 10/28/24 18:00 Response Orders (Tests/Meds): ED MEDICATIONS Generic Name Dose Route Start Last Admin Trade Name Freq PRN Reason Stop Dose Admin Enoxaparin Sodium 160 mg 10/28/24 18:43 Enoxaparin 100mg/Ml Syringe 1 mg/kg (160 mg) 10/28/24 18:44 SUBCUT ONCE ONE Lactated Ringer's 1,710 mls @ 855 mls/hr 10/28/24 17:36 10/28/24 18:07 Lactated Ringer's 1000 Ml Bag 30 ml/kg infuse over 2 hr (1710 ml) 10/28/24 19:35 855 mls/hr IV Administration .Q2H ONE Discontinued Medications Generic Name Dose Route Start Last Admin Trade Name Freq PRN Reason Stop Dose Admin Ceftriaxone Sodium 1 gm/ 50 mls @ 100 mls/hr 10/28/24 17:38 10/28/24 18:39 Sodium Chloride IV 10/28/24 18:07 Infused ONCE ONE Infusion Azithromycin 500 mg/ Sodium 250 mls @ 250 mls/hr 10/28/24 17:38 10/28/24 18:42 Chloride IV 10/28/24 17:39 Infused ONCE ONE Infusion Iopamidol 80 ml 10/28/24 18:22 10/28/24 18:23 Iopamidol-370 (76%);100ml Bottle IV 10/28/24 18:23 80 ml ONCE ONE Administration Sodium Chloride 10 ml 10/28/24 18:22 10/28/24 18:23 Sodium Chloride 0.9% 10ml Syr (Rad Only) IV 10/28/24 18:23 10 ml ONCE ONE Administration Sodium Chloride 50 ml 10/28/24 18:22 10/28/24 18:23 0.9 % Sodium Chloride 50 Ml Vial IV 10/28/24 18:23 50 ml ONCE ONE Administration ORDERS Category Date Time Status CT angio chest PE protocol Stat Cat Scan 10/28/24 17:39 Completed CXR --portable [XR chest portable] Stat Exams 10/28/24 17:45 Completed POCUS Point of Care (ER Only) Stat Exams 10/28/24 17:39 Completed BNP [NT Pro Brain Natriuretic Pep.] Stat Lab 10/28/24 18:00 Completed C-Reactive Protein Stat Lab 10/28/24 18:00 Completed Complete Blood Count Auto Diff Stat Lab 10/28/24 18:00 Completed Comprehensive Metabolic Panel Stat Lab 10/28/24 18:00 Completed Free T4 (Free Thyroxine) Stat Lab 10/28/24 18:00 Completed Full Resp Panel w/COVID ([facility]) Routine Lab 10/28/24 17:28 Received HCG Qualitative, Serum Stat Lab 10/28/24 18:00 Completed Heparin drip PTT [PTT Heparin (inpatient only)] Stat Lab 10/29/24 00:45 Ordered Lactic Acid Stat Lab 10/28/24 18:00 Completed PTT Heparin (inpatient only) Stat Lab 10/28/24 18:00 Completed TSH [Thyroid Stimulating Hormone] Stat Lab 10/28/24 18:00 Completed Trop I [Troponin I] Stat Lab 10/28/24 18:00 Completed Troponin I Q3H Lab 10/28/24 20:45 Ordered Troponin I Q3H Lab 10/28/24 23:45 Ordered Blood Culture Stat Micro 10/28/24 18:15 Received VBG [Venous Blood Gas] Stat RT 10/28/24 17:40 Completed ECG Data Tracing #1: ECG Narrative: Independently interpreted by me rate is 134, rhythm is regular, axis is normal, no ST elevation in anatomical contiguous leads, QTc 410. MDM Narrative Medical Decision Narrative: In summary patient is a 34-year-old female with past medical history described above presents emergency department for evaluation of shortness of breath left lower extremity pain. Patient is tachycardic and tachypneic and dyspneic upon arrival although protecting her airway afebrile. Differential diagnosis includes pulmonary embolism, pneumonia, hypothyroidism, among others. Broad- spectrum antibiotics will be initiated immediately as patient meets sepsis criteria. Patient will undergo CT imaging immediately given my concern for pulmonary embolism is high, this will be followed by [id number] ultrasound although her body habitus makes her left lower extremity difficult to visualize the appropriate structures I suspect. VBG will be obtained. Serial troponins will be obtained. Sepsis bolus fluids will be obtained. Tissue perfusion assessment performed immediately after initiation of IV fluids I agree with continued crystalloid resuscitation. Initial workup reviewed by me, leukocytosis of 13.3, no critical electrolyte abnormality or PERRY, initial troponin 0.[address] imaging informally interpreted by me there appears to be bilateral pulmonary emboli with right heart strain. Formal read shows extensive bilateral PE involving the distal aspects of both main pulmonary arteries with extension to all lobes, interval development of 8 mm subpleural nodules. Case was discussed with Dr. Palomino we will initiate Lovenox and in the morning will get formal echo and will decide on catheter directed intervention versus systemic anticoagulation continuation. Case was discussed with hospital medicine regarding management they will meet the patient their service for continued evaluation at this time.
[2024-10-28] MEDS: LACTATED RINGERS 1000ML 1,710 ML 855 ML IV (18:07)
[2024-10-28] MEDS: CEFTRIAXONE 1 GM 1 GM in 0.9 % SODIUM CHLORIDE 50 ML IV (18:08)
[2024-10-28 18:17] LABS: Lactate Venous 1.4 mmol/L (0.4-2.0); VBG HCO3 19.1 mmol/L (23-30); VBG PCO2 32.9 mmol/L (35-51); VBG PH 7.38 mmol/L (7.31-7.41); VBG PO2 48.2 mmol/L (28-40)
[2024-10-28 18:21] LABS: Hematocrit 38.9 % (37.0-47.0); Hemoglobin 13.0 g/dL (12.2-16.2); Immature Granulocytes % 0.5 %; Mean Corpuscular HGB Conc 33.4 g/dL (31.8-35.4); Mean Corpuscular Hemoglobin 28.6 pg (27.0-31.2); Mean Corpuscular Volume 85.5 fl (81-99); Nucleated Red Blood Cells % 0 %; Platelet Count 220 K/mm3 (142-424); Red Blood Count 4.55 M/mm3 (4.20-5.40); Red Cell Distribution Width-SD 45.1 fL; White Blood Count 13.3 K/mm3 (4.8-10.8)
[2024-10-28] MEDS: SODIUM CHLORIDE 0.9% 10ML SYR (RAD ONLY) 10 ML IV (18:23)
[2024-10-28] MEDS: 0.9 % SODIUM CHLORIDE 50 ML VIAL IV (18:23)
[2024-10-28] MEDS: IOPAMIDOL-370 (76%);100ML BOTTLE 80 ML IV (18:23)
[2024-10-28 18:32] LABS: Albumin Level 4.7 g/dl (3.5-5.0); Chloride 107 mmol/L (98-107); Potassium 3.8 mmoL/L (3.5-5.1); Sodium 135 mmol/L (136-145)
[2024-10-28] MEDS: AZITHROMYCIN 500 MG in 0.9 % SODIUM CHLORIDE 250 ML 250 MG IV (18:33)
[2024-10-28 18:34] LABS: HCG Qualitative, Serum Negative (Negative)
[2024-10-28 18:35] LABS: Alanine Aminotransferase 29 U/L (12-78); Albumin/Globulin Ratio 1.5 (1.1-1.8); Alkaline Phosphatase 88 U/L (38-126); Anion Gap 12.8 mEq/L (5-15); Aspartate Amino Transferase 42 U/L (14-36); Bilirubin,Total 0.8 mg/dl (0.2-1.3); Blood Urea Nitrogen 12 mg/dl (7-17); Carbon Dioxide 19 mmol/L (22.0-30.0); Creatinine Clearance Estimated 88 mL/min (50-200); Creatinine,Serum 0.80 mg/dl (0.52-1.04); Estimated Glomerular Filt Rate 82 ml/min (>60); GFR (African American) 99 ML/MIN (>60); Globulin 3.1 g/dL (1.3-3.2); Total Protein,Serum 7.8 g/dl (6.3-8.2)
[2024-10-28 18:36] LABS: Calcium 9.7 mg/dl (8.4-10.2); Glucose 106 mg/dl (74-100)
[2024-10-28 18:41] LABS: C-Reactive Protein 49.4 mg/L (0-4)
[2024-10-28 18:50] LABS: Troponin I 0.02 ng/ml (0.00-0.034)
[2024-10-28 18:52] LABS: PTT Heparin (inpatient only) 25.6 Seconds (50-75)
[2024-10-28 18:55] LABS: Free T4 (Free Thyroxine) 1.86 ng/dl (0.78-2.19)
[2024-10-28 19:08] LABS: Thyroid Stimulating Hormone 1.91 uIU/mL (0.465-4.68)
--- NOTE | 2024-10-28 19:10 | PC.NURSE ---
Per Juan C Crenshaw Fluids are to be stopped at 1000mL
[2024-10-28 19:17] LABS: NT Pro Brain Natriuretic Pep. 2330 pg/mL (0-125)
--- NOTE | 2024-10-28 19:48 | PC.NURSE ---
Report called to receiving RN
--- NOTE | 2024-10-28 20:22 | P.HP_ITS ---
<Statement entered by Ha Coleman MD - 10/29/24 15:13> Personally evaluated patient and agree with plan of care as outlined by the [employer]. History of Present Illness *Admission Date: 10/28/24 *Reason for visit:: Shortness of breath left leg pain *History of present illness: This 34-year-old morbidly obese female, has come to the emergency room with shortness of breath. CT scan shows multiple PEs in both lungs.. Patient is in the ER on the monitor heart rate slightly elevated into the 1 teens blood pressure slightly elevated.. Patient is not complaining of shortness of breath while lying on the stretcher. Evaluation of old records her heart rate and bl ood pressure are not much different than they have been in previous records. Patient gives me a history of in July had stepped in a hole came to the emergency room and found to have probably an avulsion fracture of the calcaneus. She ended up in a walking boot for this for quite some time.. Today she notes that her left leg has some pain she in the ER note it was in the calf while I was examining her it was actually anterior left knee. Presently her Homans' sign is negative in both calfs.. She is able to talk to me without any distress she is not on oxygen O2 saturations are in the high 90s. Patient appears calm skin is pink warm and dry. Having conferred with the ER provider who is talked with Dr. Palomino, anticoagulation has been started and he will see her in the morning.. Also cardiac echo and lower extremity Doppler have been ordered. Patient will be kept n.p.o. after midnight except for ice chips [facility] Disclaimer: The information contained in this section may have been updated after the patient was seen, as this information can be updated by other users. Medical History Left knee pain Obesity Snoring Daytime somnolence Sinusitis, acute, maxillary Depression Otitis media Acute flank pain Mild sprain of right ankle Avulsion fracture of calcaneus OCD (obsessive compulsive disorder) MDD (major depressive disorder), recurrent episode, moderate Influenza A Generalized anxiety disorder Major depressive disorder Pharyngitis COVID-19 Exposure to COVID-19 virus Viral upper respiratory illness Sore throat Laceration of right hand Bronchitis Surgical History No significant past surgical history Family History Other No significant family history Social History Smoking Status: Never smoker alcohol intake: current alcohol intake frequency: holidays/special occasions only substance use type: denies use current occupational status: employed Travel in the last 8 weeks?: None household members: family housing: house number of children: 1 Have you lived/traveled outside [place] in past 30 days?: No Contact w/someone who lives/traveled outside US past 30 days?: No Exposure to someone with infectious disease in past 14 days?: No Do you have a fever (greater than 100.4 F or 38 C)?: No Have you tested positive for COVID-19?: No Exposed to someone with COVID-19 in past 14 days?: No Do you have a sore throat?: No Do you have a cough?: No Do you have any weakness?: No Do you have any diarrhea?: No Are you experiencing any unusual bleeding?: No Do you have any muscle aches/pain?: No Do you have any abdominal pain?: No Are you experiencing loss of taste or smell?: No Other Medical History Have you received the Flu Vaccine for this season: Yes Have you received the Pneumonia Vaccine: No Review of Systems Review of Systems Review of systems:: pertinent systems reviewed and negative unless documented below Constitutional Constitutional: Reports as per HPI Eyes Eyes: Reports as per HPI ENT Ears, Nose, Mouth, and Throat: Reports as per HPI *Cardiovascular Cardiovascular: Reports as per HPI, Reports dyspnea and Reports dyspnea on exertion *Respiratory Respiratory: Reports as per HPI, Reports dyspnea and Reports dyspnea on exertion *Gastrointestinal Gastrointestinal: Reports as per HPI *Genitourinary Genitourinary: Reports as per HPI *Musculoskeletal Musculoskeletal: Reports as per HPI Integumentary/Breasts Skin/Breast: Reports as per HPI *Neurologic Neurologic: Reports as per HPI Psychiatric Psychiatric: Reports as per HPI Endocrine Endocrine: Reports as per HPI Hematologic/Lymphatic Hematologic/Lymphatic: Reports as per HPI Allergic/Immunologic Allergic/Immunologic: Reports as per HPI Meds Home Medications and Allergies Home Medications ?Medication ?Instructions ?Recorded ?Confirmed ?Type venlafaxine 75 mg capsule,extended 75 mg PO DAILY #30 caps 12/29/23 Rx release 24 hr (Effexor XR) hydrochlorothiazide 25 mg tablet 12.5 mg (1/2 x 25 mg) PO DAILY #90 01/16/24 Rx tabs atorvastatin 10 mg tablet See Rx Instructions .Route 0 08/01/24 Rx .COMPLEX #90 tabs lamotrigine 100 mg tablet 100 mg PO DAILY #30 tabs Rx (Lamictal) lamotrigine 25 mg tablet (Lamictal) 25 mg PO DAILY #30 tabs 08/15/24 Rx lisinopril 20 mg tablet See Rx Instructions .Route 0 08/15/24 Rx .COMPLEX #90 tabs venlafaxine 150 mg 150 mg PO DAILY #30 caps 10/24 Rx capsule,extended release 24 hr New Prescriptions to Start Prescriptions: Allergies Allergy/AdvReac Type Severity Reaction Status Date / Time No Known Allergies Allergy Verified 11/30/23 15:53 Exam Data for Last 24 hours Vital signs and Labs for Last 24 Hours: Temp Pulse Resp BP Pulse Ox O2 Del Method 98.6 F 113 H 22 154/84 H 98 Room Air 10/28/24 19:50 10/28/24 19:50 10/28/24 19:50 10/28/24 19:50 10/28/24 17:36 10/28/24 19:50 Laboratory Results - last 24 hr 10/28/24 17:40: VBG pH 7.38, VBG pCO2 32.9 L, VBG pO2 48.2 H, VBG HCO3 19.1 L, VBG Total CO2 20.1 L, VBG O2 Saturation 82.4 H, VBG Base Excess -6.0 L, VBG Lactic Acid 1.4 10/28/24 18:00: WBC 13.3 H, RBC 4.55, Hgb 13.0, Hct 38.9, MCV 85.5, MCH 28.6, MCHC 33.4, RDW 14.6, Plt Count 220, MPV 10.8 H, Neut % (Auto) 68.4, Lymph % (Au to) 23.5, [place] % (Auto) 5.7, Eos % (Auto) 1.2, Baso % (Auto) 0.7, Neut # (Auto) 9.1 H, Lymph # (Auto) 3.1, [place] # (Auto) 0.8, Eos # (Auto) 0.2, Baso # (Auto) 0.1, APTT 25.6 L, Sodium 135 L, Potassium 3.8, Chloride 107, Carbon Dioxide 19 L , Anion Gap 12.8, BUN 12, Creatinine 0.80, Estimated Creat Clear 88, Estimated GFR 82, Est GFR ( Amer) 99, Glucose 106 H, Lactate 0.9, Calcium 9.7, Total Bilirubin 0.8, AST 42 H, ALT 29, Alkaline Phosphatase 88, Troponin I 0.02, C-Reactive Protein 49.4 H, NT-Pro-B Natriuret Pep 2330 H, Total Protein 7.8, Albumin 4.7, Globulin 3.1, Albumin/Globulin Ratio 1.5, TSH 1.91, Free T4 1.86, Serum HCG, Qual Negative I & O for Last 24 hours: Intake & Output 10/26/24 10/27/24 10/28/24 10/29/24 05:59 05:59 05:59 05:59 Intake Total 1050 / 1050 Balance 1050 / 1050 Weight 350 lb Radiology Reports for the Last 24 Hours: Extensive bilateral PE involving the distal aspects of both main pulmonary arteries with extension into all lobes. Associated right ventricular strain. 2. Interval development of an 8 mm subpleural nodule in the inferolateral lingula region. Advise follow-up CT in 3 to 6 months to ensure stability. 3. Interval development of a 8 mm subpleural nodule in the posteroinferior lateral lingula on image 76 of series 5. Constitutional Constitutional: mild distress, morbidly obese and cooperative *Routine HEENT Exam Head: Present normocephalic and atraumatic Eye: Present EOMI and PERRL ENT: Present mucous membranes moist *Routine Neck Exam Neck: Present supple and full ROM *Routine Respiratory Exam Respiratory: Present CTA bilaterally, normal respiratory effort, able to speak in complete sentences and symmetric chest movement Comments: Patient O2 sats 97% on room air while laying down *Routine Cardiovascular Exam Cardiovascular: Present RRR, Normal S1, Normal S2 and tachycardia *Routine Abdominal Exam Abdominal: Present soft, normoactive bowel sounds and obese Comments: No abdominal tenderness *Routine Rectal Exam Rectal:: deferred *Routine Genitalia Exam Genitalia:: deferred *Routine Skin Exam Skin: Present intact, dry and warm Comments: Large legs but no signs of tenderness to the calf no redness no skin breakdown *Routine Neurological Exam Neurological: Present alert, oriented X3, CN II-XII intact, normal reflexes, moving all extremities, vision grossly intact, hearing grossly intact and normal speech Routine Psychiatric Exam Psychiatric: Present normal affect, normal thought process, cooperative, good insight and good judgment H&P: Result Impressions 1. Bilateral pulmonary embolisms with shortness of breath, history of calcaneus avulsion fracture in July wore walking boot 2. Morbid obesity BMI greater than 50 3. Hypertension and tachycardia per history but may be slightly worse now Imaging and Cardiology CT scan - chest: Status: image reviewed by me Additional comments: Extensive bilateral PE involving the distal aspects of both main pulmonary arteries with extension into all lobes. Associated right ventricular strain. 2. Interval development of an 8 mm subpleural nodule in the inferolateral lingula region. Advise follow-up CT in 3 to 6 months to ensure stability. 3. Interval development of a 8 mm subpleural nodule in the posteroinferior lateral lingula on image 76 of series 5. Assessment and Plan *Assessment and plan (1) Pulmonary embolism: Status: Acute Qualifiers: Pulmonary embolism type: multiple subsegmental (without acute cor pulmonale) Qualified Code(s): I26.94 - Multiple subsegmental thrombotic pulmonary emboli without acute cor pulmonale Category: Medical Code(s): I26.99 - Other pulmonary embolism without acute cor pulmonale (2) Hypertension: Status: Acute Qualifiers: Hypertension type: primary hypertension Qualified Code(s): I10 - Essential (primary) hypertension Category: Medical Code(s): I10 - Essential (primary) hypertension (3) Tachycardia: Status: Acute Category: Medical Code(s): R00.0 - Tachycardia, unspecified (4) Elevated brain natriuretic peptide (BNP) level: Status: Acute Category: Medical Code(s): R79.89 - Other specified abnormal findings of blood chemistry (5) Pulmonary nodule: Status: Acute Category: Medical Code(s): R91.1 - Solitary pulmonary nodule (6) BMI 50.0-59.9, adult: Status: Acute Category: Medical Code(s): Z68.43 - Body mass index [BMI] 50.0-59.9, adult (7) Chondromalacia, patella: Status: Acute Qualifiers: Laterality: left Qualified Code(s): M22.42 - Chondromalacia patellae, left knee Category: Medical Code(s): M22.40 - Chondromalacia patellae, unspecified knee Plan 1. Dr. Palomino was notified by the ER provider and will be seeing the patient in the morning. Anticoagulation has been ordered and given in the emergency room. Patient will be placed in the stepdown unit on continuing monitor throughout the night., Plans at this time are echocardiogram and bilateral lower extremity Doppler. Patient will be kept n.p.o. after midnight 2. Patient is stable at this time but findings on the CT scan are concerning. Labs will be drawn in the morning including troponin
--- NOTE | 2024-10-28 21:34 | PC.NURSE ---
arrival to unit at 2007, via stretcher.
[2024-10-28] MEDS: PANTOPRAZOLE 40MG TABLET 40 MG PO (21:46)
[2024-10-28] MEDS: diazePAM 5MG TABLET 2.5 MG PO (21:46)
[2024-10-28 22:13] LABS: Troponin I 0.02 ng/ml (0.00-0.034)
[2024-10-29] VITALS (22 sets, daily range): BP systolic 117–147; BP diastolic 76–99; PULSE 100–125; RESP 15–25; TEMP 36.6–37.4; O2SAT 89–98; BMI 53.4; BMI 58.3
[2024-10-29 01:35] LABS: Troponin I 0.02 ng/ml (0.00-0.034)
[2024-10-29 05:23] LABS: PTT Heparin (inpatient only) 31.0 Seconds (50-75)
[2024-10-29 06:55] LABS: Lactate Venous 1.1 mmol/L (0.4-2.0); VBG HCO3 19.3 mmol/L (23-30); VBG PCO2 29.6 mmol/L (35-51); VBG PH 7.43 mmol/L (7.31-7.41); VBG PO2 60.7 mmol/L (28-40)
[2024-10-29 07:46] LABS: Hematocrit 37.7 % (37.0-47.0); Hemoglobin 12.3 g/dL (12.2-16.2); Immature Granulocytes % 0.6 %; Mean Corpuscular HGB Conc 32.6 g/dL (31.8-35.4); Mean Corpuscular Hemoglobin 28.1 pg (27.0-31.2); Mean Corpuscular Volume 86.3 fl (81-99); Nucleated Red Blood Cells % 0 %; Platelet Count 182 K/mm3 (142-424); Red Blood Count 4.37 M/mm3 (4.20-5.40); Red Cell Distribution Width-SD 46.5 fL; White Blood Count 8.3 K/mm3 (4.8-10.8)
[2024-10-29 07:50] LABS: Alanine Aminotransferase 26 U/L (12-78); Albumin Level 4.0 g/dl (3.5-5.0); Albumin/Globulin Ratio 1.3 (1.1-1.8); Alkaline Phosphatase 88 U/L (38-126); Anion Gap 14.0 mEq/L (5-15); Aspartate Amino Transferase 41 U/L (14-36); Bilirubin,Total 1.1 mg/dl (0.2-1.3); Blood Urea Nitrogen 8 mg/dl (7-17); Calcium 9.0 mg/dl (8.4-10.2); Carbon Dioxide 18 mmol/L (22.0-30.0); Chloride 108 mmol/L (98-107); Creatinine Clearance Estimated 109 mL/min (50-200); Creatinine,Serum 0.70 mg/dl (0.52-1.04); Estimated Glomerular Filt Rate 95 ml/min (>60); GFR (African American) 115 ML/MIN (>60); Globulin 3.0 g/dL (1.3-3.2); Glucose 96 mg/dl (74-100); Magnesium 1.8 mg/dl (1.6-2.3); Potassium 4.0 mmoL/L (3.5-5.1); Sodium 136 mmol/L (136-145); Total Protein,Serum 7.0 g/dl (6.3-8.2)
[2024-10-29 07:54] LABS: Activated Partial Thrombo Time 29.2 seconds (22.8-30.6)
[2024-10-29 08:18] LABS: Troponin I 0.02 ng/ml (0.00-0.034)
--- NOTE | 2024-10-29 08:31 | HMH.PHAINT1 ---
Pharmacy Intervention Comments: MEDICATION RECONCILIATION COMPLETED ON PATIENT USING EXTERNAL FILL HISTORY FROM PHARMACY AND LIST FROM PCP OFFICE. -BRENDON DRAKE, [place]
--- NOTE | 2024-10-29 09:40 | PC.NURSE ---
Pt stood at bedside so staff could change the soiled bed and apply mesh panties. pt hr was noted to jump to 140's. purwick put back in place.
--- NOTE | 2024-10-29 11:54 | PC.NURSE ---
pt left the ICU with med surg staff to transfer to the med surg floor
--- NOTE | 2024-10-29 11:56 | PC.NURSE ---
arrived to floor from ICU
[2024-10-29] MEDS: VENLAFAXINE XR 75MG CAPSULE 225 MG PO (12:07)
--- NOTE | 2024-10-29 16:41 | PC.NURSE ---
Pt transferred from step down to med-surg this morning. Pt has been A&Ox4. Vital signs stable tolerating room air. Pt sinus tach on tele. Pt heart rate gets tachy on exertion. Pt also c/o SOB on exertion. Pt on lovenox for VTE. No complaints of pain. Pt resting comfortably supine in bed with no further needs voiced at this time. Pt educated on calling out for assistance if she needs to get up. Call light within reach.
--- NOTE | 2024-10-29 17:39 | EXP.PN ---
Subjective *Date: 10/29/24 *Time: 17:39 Interval history: Patient denies chest pain, shortness of breath. Tearful on exam, anxious. Possible thrombectomy in the morning with Dr. Palomino pending clinical progress, does not need to be NPO. Exam Data for Last 24 hours Vital signs and Labs for Last 24 Hours: Temp Pulse Resp BP Pulse Ox O2 Del Method O2 Flow Rate 98.3 F 110 H 16 141/81 H 94 L Room Air 2 10/29/24 15:45 10/29/24 16:00 10/29/24 15:45 10/29/24 15:45 10/29/24 15:45 10/29/24 15:45 10/29/24 11:00 Laboratory Results - last 24 hr 10/28/24 17:28: Chlamy pneumoniae PCR Not detected, Adenovirus (PCR) Not detected, B. pertussis DNA (PCR) Not detected, Coronavirus OC43 (PCR) Not detected, Coronavirus HKU1 (PCR) Not detected, Coronavirus 229E (PCR) Not detected, SARS-CoV-2 (PCR) Not detected, Coronavirus NL63 (PCR) Not detected, Human Metapneumovir PCR Not detected, Influenza A (H1) PCR Not detected, Influ A (H1N1/09) PCR Not detected, Influenza A (H3) PCR Not detected, Influenza Type A (PCR) Not detected, Influenza Type B (PCR) Not detected, M. pneumoniae (PCR) Not detected, Parainfluenza 1 (PCR) Not detected, Parainfluenza 2 (PCR) Not detected, Parainfluenza 3 (PCR) Not detected, Parainfluenza 4 (PCR) Not detected, RSV (PCR) Not detected, Entero/Rhino (PCR) Detected A 10/28/24 17:40: VBG pH 7.38, VBG pCO2 32.9 L, VBG pO2 48.2 H, VBG HCO3 19.1 L, VBG Total CO2 20.1 L, VBG O2 Saturation 82.4 H, VBG Base Excess -6.0 L, VBG Lactic Acid 1.4 10/28/24 18:00: WBC 13.3 H, RBC 4.55, Hgb 13.0, Hct 38.9, MCV 85.5, MCH 28.6, MCHC 33.4, RDW 14.6, Plt Count 220, MPV 10.8 H, Neut % (Auto) 68.4, Lymph % (Auto) 23.5, [place] % (Auto) 5.7, Eos % (Auto) 1.2, Baso % (Auto) 0.7, Neut # (Auto) 9.1 H, Lymph # (Auto) 3.1, [place] # (Auto) 0.8, Eos # (Auto) 0.2, Baso # (Auto) 0.1, APTT 25.6 L, Sodium 135 L, Potassium 3.8, Chloride 107, Carbon Dioxide 19 L, Anion Gap 12.8, BUN 12, Creatinine 0.80, Estimated Creat Clear 88, Estimated GFR 82, Est GFR ( Amer) 99, Glucose 106 H, Lactate 0.9, Calcium 9.7, Total Bilirubin 0.8, AST 42 H, ALT 29, Alkaline Phosphatase 88, Troponin I 0.02, C-Reactive Protein 49.4 H, NT-Pro-B Natriuret Pep 2330 H, Total Protein 7.8, Albumin 4.7, Globulin 3.1, Albumin/Globulin Ratio 1.5, TSH 1.91, Free T4 1.86, Serum HCG, Qual Negative 10/28/24 21:30: Troponin I 0.02 10/29/24 00:39: APTT 31.0 L, Troponin I 0.02 10/29/24 06:00: VBG pH 7.43 H, VBG pCO2 29.6 L, VBG pO2 60.7 H, VBG HCO3 19.3 L, VBG Total CO2 20.2 L, VBG O2 Saturation 92.2 H, VBG Base Excess -5.0 L, VBG Lactic Acid 1.1 10/29/24 06:48: WBC 8.3 D, RBC 4.37, Hgb 12.3, Hct 37.7, MCV 86.3, MCH 28.1, MCHC 32.6, RDW 14.7, Plt Count 182, MPV 11.0 H, Neut % (Auto) 59.9, Lymph % (Auto) 30.3, [place] % (Auto) 6.4, Eos % (Auto) 2.0, Baso % (Auto) 0.8, Neut # (Auto) 5.0, Lymph # (Auto) 2.5, [place] # (Auto) 0.5, Eos # (Auto) 0.2, Baso # (Auto) 0.1, APTT 29.2, Sodium 136, Potassium 4.0, Chloride 108 H, Carbon Dioxide 18 L, Anion Gap 14.0, BUN 8 D, Creatinine 0.70, Estimated Creat Clear 109, Estimated GFR 95, Est GFR ( Amer) 115, Glucose 96, Calcium 9.0, Magnesium 1.8, Total Bilirubin 1.1, AST 41 H, ALT 26, Alkaline Phosphatase 88, Total Protein 7.0, Albumin 4.0 D, Globulin 3.0, Albumin/Globulin Ratio 1.3 10/29/24 : Troponin I 0.02 I & O for Last 24 hours: Intake & Output 10/26/24 10/27/24 10/28/24 10/29/24 23:59 23:59 23:59 23:59 Intake Total 1050 / 1050 450 / 450 Output Total 600 / 600 800 / 800 Balance 450 / 450 -350 / -350 Weight 158.757 kg 158.927 kg Assessment and Plan *Assessment and plan (1) Pulmonary nodule: Status: Acute Category: Medical Code(s): R91.1 - Solitary pulmonary nodule (2) Pulmonary embolism: Status: Acute Qualifiers: Pulmonary embolism type: multiple subsegmental (without acute cor pulmonale) Qualified Code(s): I26.94 - Multiple subsegmental thrombotic pulmonary emboli without acute cor pulmonale Category: Medical Code(s): I26.99 - Other pulmonary embolism without acute cor pulmonale Plan Maisha Tse is a 34-year-old female with a medical history significant for anxiety/depression, obesity, hypertension who presented with shortness of breath and was admitted for bilateral pulmonary emboli. #Acute hypoxic respiratory failure, resolved #Extensive bilateral pulmonary emboli #RV strain #Rhinovirus ? Presented with at least 1 week of worsening shortness of breath. CTA chest revealed extensive bilateral pulmonary emboli with RV strain, RV/LV ratio 1.2. ? EKG shows sinus tachycardia, troponins unremarkable. Respiratory panel positive for rhinovirus. ? Patient recently fractured her right calcaneus, was in a boot for about a month but denies being stationary. Also denies recent extended trips, contraception, smoking. ? Patient does say that her left lower extremity is slightly swollen, does have left calf tenderness. No appreciable asymmetry, erythema, swelling on exam. ? Spoke to Dr. Palomino extensively, we will continue therapeutic Lovenox therapy and reevaluate tomorrow for possible thrombectomy. ? Continue therapeutic Lovenox 155 mg twice daily. ? Continuous cardiac telemetry. ? Follow-up BLANKA comprehensive panel, factor V Leiden for hypercoagulable workup. TSH normal, follow-up lipid panel. ? At this time, PE seems unprovoked. Obesity is a risk factor. Rhinovirus/subpleural nodules may be a trigger, though would be very rare. ? Plan to refer to hematology for further evaluation. #Subpleural nodules ? At least two 8 mm subpleural nodules found in the lingula region. Patient denies asbestos exposure, or other environmental pollutants that she can think of. ? Non-smoker. Follow-up BLANKA comprehensive panel as above. ? Plan to have close follow-up with pulmonology on discharge. #Anxiety/depression ? Continue home venlafaxine, lamotrigine. ? Started Ativan 0.5 mg 3 times daily as needed. Patient is tearful, anxious on exam. #Hypertension ? Hold home lisinopril for now in the setting of extensive PE. Full code DVT prophylaxis: Therapeutic Lovenox as above
[2024-10-29] MEDS: PANTOPRAZOLE 40MG TABLET 40 MG PO (20:35)
[2024-10-30] VITALS (8 sets, daily range): BP systolic 135–161; BP diastolic 62–106; PULSE 98–110; RESP 16–20; TEMP 36.4–36.8; O2SAT 93–97; BMI 58.2
--- NOTE | 2024-10-30 04:09 | PC.NURSE ---
Pt A&OX4 and has tolerated room air. She has denied any chest pain. She did complain of SOA with exertion. She has received lovenox for VTE. She has remained normal sinus to sinus tachycardia on tele. No complains at this time ,call light within reach.
[2024-10-30 06:51] LABS: Cholesterol 142 mg/dl (140-200); HDL Cholesterol 32 mg/dl (40-60); Triglycerides 138 mg/dl (30-150)
[2024-10-30 08:38] LABS: Hematocrit 38.1 % (37.0-47.0); Hemoglobin 12.4 g/dL (12.2-16.2); Immature Granulocytes % 1.0 %; Mean Corpuscular HGB Conc 32.5 g/dL (31.8-35.4); Mean Corpuscular Hemoglobin 28.4 pg (27.0-31.2); Mean Corpuscular Volume 87.2 fl (81-99); Nucleated Red Blood Cells % 0 %; Platelet Count 184 K/mm3 (142-424); Red Blood Count 4.37 M/mm3 (4.20-5.40); Red Cell Distribution Width-SD 46.8 fL; White Blood Count 7.8 K/mm3 (4.8-10.8)
[2024-10-30] MEDS: VENLAFAXINE XR 75MG CAPSULE 225 MG PO (09:00)
[2024-10-30 09:01] LABS: Alanine Aminotransferase 30 U/L (12-78); Albumin Level 3.8 g/dl (3.5-5.0); Albumin/Globulin Ratio 1.4 (1.1-1.8); Alkaline Phosphatase 92 U/L (38-126); Anion Gap 12.3 mEq/L (5-15); Aspartate Amino Transferase 37 U/L (14-36); Bilirubin,Total 0.9 mg/dl (0.2-1.3); Blood Urea Nitrogen 8 mg/dl (7-17); Calcium 8.8 mg/dl (8.4-10.2); Carbon Dioxide 24 mmol/L (22.0-30.0); Chloride 104 mmol/L (98-107); Creatinine Clearance Estimated 85 mL/min (50-200); Creatinine,Serum 0.80 mg/dl (0.52-1.04); Estimated Glomerular Filt Rate 82 ml/min (>60); GFR (African American) 99 ML/MIN (>60); Globulin 2.7 g/dL (1.3-3.2); Glucose 94 mg/dl (74-100); Potassium 4.3 mmoL/L (3.5-5.1); Sodium 136 mmol/L (136-145); Total Protein,Serum 6.5 g/dl (6.3-8.2)
[2024-10-30] MEDS: LISINOPRIL 20MG TABLET 20 MG PO (09:01)
--- NOTE | 2024-10-30 10:40 | PC.NURSE ---
NO SURGICAL INTERVENTION WILL BE SCHEDULED FOR TODAY PER THIRD OFFICER, WILL CONTINUE TO MONITOR SYMPTOMS.
[2024-10-30] MEDS: BENZONATATE 100MG CAPSULE 200 MG PO ×2 (13:58→20:12)
--- NOTE | 2024-10-30 16:43 | EXP.PN ---
Subjective *Date: 10/30/24 *Time: 16:43 Interval history: Patient feels better today, has been anxious throughout the night. Denies chest pain, shortness of breath. Plan for thrombectomy on Thursday. Exam Data for Last 24 hours Vital signs and Labs for Last 24 Hours: Temp Pulse Resp BP Pulse Ox O2 Del Method O2 Flow Rate 98.0 F 102 H 20 139/77 96 Room Air 2 10/30/24 16:10/30/24 16:10/30/24 16:10/30/24 16:10/30/24 16:10/30/24 16:00 10/29/24 11:00 Laboratory Results - last 24 hr 10/30/24 06:00: WBC 7.8, RBC 4.37, Hgb 12.4, Hct 38.1, MCV 87.2, MCH 28.4, MCHC 32.5, RDW 14.7, Plt Count 184, MPV 11.0 H, Neut % (Auto) 59.1, Lymph % (Auto) 29.0, [place] % (Auto) 8.2, Eos % (Auto) 2.1, Baso % (Auto) 0.6, Neut # (Auto) 4.6, Lymph # (Auto) 2.3, [place] # (Auto) 0.6, Eos # (Auto) 0.2, Baso # (Auto) 0.1, Sodium 136, Potassium 4.3, Chloride 104, Carbon Dioxide 24, Anion Gap 12.3, BUN 8, Creatinine 0.80, Estimated Creat Clear 85, Estimated GFR 82, Est GFR ( Amer) 99, Glucose 94, Calcium 8.8, Total Bilirubin 0.9, AST 37 H, ALT 30, Alkaline Phosphatase 92, Total Protein 6.5, Albumin 3.8, Globulin 2.7, Albumin/Globulin Ratio 1.4, Triglycerides 138, Cholesterol 142, LDL Cholesterol Direct 71.17 L, VLDL Cholesterol 28, HDL Cholesterol 32 L, Cholesterol/HDL Ratio 4.4 H I & O for Last 24 hours: Intake & Output 10/27/24 10/28/24 10/29/24 10/30/24 23:59 23:59 23:59 23:59 Intake Total 1050 / 1050 850 / 1050 780 / 780 Output Total 600 / 600 800 / 800 2049 Balance 450 / 450 50 / 250 -1270 / -1270 Weight 158.757 kg 158.927 kg 158.485 kg Microbiology Reports for the Last 24 Hours: Microbiology 10/28/24 18:15 Blood Blood Culture - Preliminary NO GROWTH AFTER 24 HOURS 10/28/24 18:00 Blood Blood Culture - Preliminary NO GROWTH AFTER 24 HOURS Constitutional Constitutional: no acute distress and obese *Routine HEENT Exam Head: Present normocephalic Eye: Present EOMI and PERRL ENT: Present mucous membranes moist *Routine Neck Exam Neck: Present supple; Absent lymphadenopathy *Routine Respiratory Exam Respiratory: Present CTA bilaterally *Routine Cardiovascular Exam Cardiovascular: Present RRR *Routine Abdominal Exam Abdominal: Present soft and normoactive bowel sounds; Absent tenderness *Routine Extremities Exam Extremities: Absent cyanosis, clubbing or edema *Routine Skin Exam Skin: Present warm; Absent rash *Routine Neurological Exam Neurological: Present alert and oriented X3 Assessment and Plan *Assessment and plan (1) Pulmonary nodule: Status: Acute Category: Medical Code(s): R91.1 - Solitary pulmonary nodule (2) Pulmonary embolism: Status: Acute Qualifiers: Pulmonary embolism type: multiple subsegmental (without acute cor pulmonale) Qualified Code(s): I26.94 - Multiple subsegmental thrombotic pulmonary emboli without acute cor pulmonale Category: Medical Code(s): I26.99 - Other pulmonary embolism without acute cor pulmonale Plan Maisha Tse is a 34-year-old female with a medical history significant for anxiety/depression, obesity, hypertension who presented with shortness of breath and was admitted for bilateral pulmonary emboli. #Acute hypoxic respiratory failure, resolved #Extensive bilateral pulmonary emboli #RV strain #Rhinovirus ? Presented with at least 1 week of worsening shortness of breath. CTA chest 10/28/2024 revealed extensive bilateral pulmonary emboli with RV strain, RV/LV ratio 1.2. ? Initial EKG showed sinus tachycardia, troponins unremarkable. Respiratory panel positive for rhinovirus. ? Patient recently fractured her right calcaneus, was in a boot for about a month but denies being stationary. Also denies recent extended trips, contraception, smoking. ? Patient does say that her left lower extremity is slightly swollen, does have left calf tenderness. No appreciable asymmetry, erythema, swelling on exam. ? Spoke to Dr. Candelario extensively, we will continue therapeutic Lovenox therapy and plan for thrombectomy on Thursday. ? Continue therapeutic Lovenox 155 mg twice daily. ? Continuous cardiac telemetry. ? Follow-up BLANKA comprehensive panel, factor V Leiden for hypercoagulable workup. TSH, LDL normal. ? Follow-up ECHO, left lower extremity venous Doppler. ? At this time, PE seems unprovoked. Obesity is a risk factor. Rhinovirus/subpleural nodules may be a trigger, though would be rare. ? Has been weaned to room air, required 2 L overnight when initially admitted. ? Plan to refer to hematology for further evaluation. #Subpleural nodules ? At least two 8 mm subpleural nodules found in the lingular region. Patient denies asbestos exposure, or other environmental pollutants that she can think of. ? Non-smoker. Follow-up BLANKA comprehensive panel as above. ? Pulmonology consulted, pending further recommendations. #Anxiety/depression ? Continue home venlafaxine, lamotrigine. ? Continue Ativan 0.5 mg 3 times daily as needed. Patient is tearful, anxious at times. #Hypertension ? Continue home lisinopril 20 mg. #Obesity ? Complicates all aspects of care. Full code DVT prophylaxis: Therapeutic Lovenox as above
[2024-10-30] MEDS: PANTOPRAZOLE 40MG TABLET 40 MG PO (20:12)
[2024-10-31] VITALS (11 sets, daily range): BP systolic 105–132; BP diastolic 54–87; PULSE 90–110; RESP 16–22; TEMP 36.6–36.8; O2SAT 92–100; BMI 57.9
--- NOTE | 2024-10-31 03:26 | PC.NURSE ---
Pt A&OX4 and has tolerated room air. Pt has denied any chest pain or SOA except on exertion. She has remained normal sinus to sinus tach on tele. Receiving lovenox for VTE. No complaints at this time, call light within reach.
[2024-10-31 06:32] LABS: Hematocrit 37.8 % (37.0-47.0); Hemoglobin 12.6 g/dL (12.2-16.2); Immature Granulocytes % 1.0 %; Mean Corpuscular HGB Conc 33.3 g/dL (31.8-35.4); Mean Corpuscular Hemoglobin 28.9 pg (27.0-31.2); Mean Corpuscular Volume 86.7 fl (81-99); Nucleated Red Blood Cells % 0 %; Platelet Count 189 K/mm3 (142-424); Red Blood Count 4.36 M/mm3 (4.20-5.40); Red Cell Distribution Width-SD 46.7 fL; White Blood Count 6.7 K/mm3 (4.8-10.8)
[2024-10-31 06:54] LABS: Alanine Aminotransferase 38 U/L (12-78); Albumin Level 4.0 g/dl (3.5-5.0); Albumin/Globulin Ratio 1.3 (1.1-1.8); Alkaline Phosphatase 99 U/L (38-126); Anion Gap 13.0 mEq/L (5-15); Aspartate Amino Transferase 47 U/L (14-36); Bilirubin,Total 0.8 mg/dl (0.2-1.3); Blood Urea Nitrogen 8 mg/dl (7-17); Calcium 9.0 mg/dl (8.4-10.2); Carbon Dioxide 20 mmol/L (22.0-30.0); Chloride 107 mmol/L (98-107); Creatinine Clearance Estimated 97 mL/min (50-200); Creatinine,Serum 0.70 mg/dl (0.52-1.04); Estimated Glomerular Filt Rate 95 ml/min (>60); GFR (African American) 115 ML/MIN (>60); Globulin 3.0 g/dL (1.3-3.2); Glucose 93 mg/dl (74-100); Potassium 4.0 mmoL/L (3.5-5.1); Sodium 136 mmol/L (136-145); Total Protein,Serum 7.0 g/dl (6.3-8.2)
[2024-10-31] MEDS: LISINOPRIL 20MG TABLET 20 MG PO (08:17)
[2024-10-31] MEDS: VENLAFAXINE XR 75MG CAPSULE 225 MG PO (08:17)
--- NOTE | 2024-10-31 09:03 | P.PN_ITS ---
<Statement entered by Tahir Okeefe MD - 10/31/24 15:01> Rounded on patient after nurse practitioner. Personally examined and interviewed patient. Agree with exam findings and care plan as documented. Subjective *Date: 10/31/24 *Time: 15:01 Interval history: Patient is doing well this morning. Sitting up in the bed, states she did get some sleep last night. She does complain of intermittent mild left calf tenderness. No swelling/edema/erythema noted. Lungs CTA, denies shortness of breath except occasionally with exertion. Patient O2 stable on room air, mildly tachycardic at 100 bpm. Plans for thrombectomy tomorrow. Mother at bedside for support. Patient and mother are agreeable to the plan. Medical Exam Vital signs and Labs for Last 24 Hours: Vital Signs Temp Pulse Pulse Resp BP Pulse Ox O2 Del Method 10/31/24 07:50 97.8 F 96 H 16 125/83 95 Room Air 10/31/24 06:41 Room Air 10/31/24 05:00 Room Air 10/31/24 04:00 98.1 F 96 H 17 132/87 92 L Room Air 10/31/24 04:00 110 H 10/31/24 03:00 Room Air 10/31/24 01:00 Room Air 10/31/24 00:00 100 H 10/31/24 00:00 98.1 F 91 H 16 119/54 L 92 L Room Air 10/30/24 23:00 Room Air 10/30/24 21:00 Room Air 10/30/24 20:00 Room Air 10/30/24 20:00 110 H 10/30/24 19:30 97.6 F 104 H 17 135/62 97 Room Air 10/30/24 18:26 Room Air 10/30/24 17:00 Room Air 10/30/24 16:00 104 H 10/30/24 16:00 98.0 F 102 H 20 139/77 96 Room Air 10/30/24 14:06 Room Air 10/30/24 13:00 Room Air 10/30/24 12:00 104 H 10/30/24 12:00 98.2 F 100 H 18 145/85 H 97 Room Air 10/30/24 11:00 Room Air Intake and Output 10/30/24 10/31/24 10/31/24 23:59 07:59 15:59 Intake Total 540 / 1570 250 / 810 560 / 810 Output Total 0 / 0 Balance 540 / -480 250 / 810 560 / 810 Intake: Intake, Oral Amount 540 / 1570 250 / 810 560 / 810 Output: Output, Urine Amount 0 / 0 Other: Number of Unmeasured Voids 1 Weight 157.714 kg Patient Weight 10/31/24 23:59 Weight 157.714 kg Laboratory Results - last 24 hr 10/30/24 06:00: Sodium 136, Potassium 4.3, Chloride 104, Carbon Dioxide 24, Anion Gap 12.3, BUN 8, Creatinine 0.80, Estimated Creat Clear 85, Estimated GFR 82, Est GFR ( Amer) 99, Glucose 94, Calcium 8.8, Total Bilirubin 0.9, AST 37 H, ALT 30, Alkaline Phosphatase 92, Total Protein 6.5, Albumin 3.8, Globulin 2.7, Albumin/Globulin Ratio 1.4 10/31/24 06:03: WBC 6.7, RBC 4.36, Hgb 12.6, Hct 37.8, MCV 86.7, MCH 28.9, MCHC 33.3, RDW 14.8, Plt Count 189, MPV 10.5 H, Neut % (Auto) 57.9, Lymph % (Auto) 30.8, [place] % (Auto) 7.1, Eos % (Auto) 2.5, Baso % (Auto) 0.7, Neut # (Auto) 3.9, Lymph # (Auto) 2.1, [place] # (Auto) 0.5, Eos # (Auto) 0.2, Baso # (Auto) 0.1, Sodium 136, Potassium 4.0, Chloride 107, Carbon Dioxide 20 L, Anion Gap 13.0, BUN 8, Creatinine 0.70, Estimated Creat Clear 97, Estimated GFR 95, Est GFR ( Amer) 115, Glucose 93, Calcium 9.0, Total Bilirubin 0.8, AST 47 H D, ALT 38 D, Alkaline Phosphatase 99, Total Protein 7.0, Albumin 4.0, Globulin 3.0, Albumin/Globulin Ratio 1.3 I & O for Labs for Last 24 Hours: Intake & Output 10/28/24 10/29/24 10/30/24 10/31/24 23:59 23:59 23:59 23:59 Intake Total 1050 / 1050 850 / 1050 1320 / 1570 810 / 810 Output Total 600 / 600 800 / 800 2049 / 2049 0 / 0 Balance 450 / 450 50 / 250 -730 / -480 810 / 810 Weight 158.757 kg 158.927 kg 158.485 kg 157.714 kg Microbiology Reports for the Last 24 Hours: Microbiology 10/28/24 18:15 Blood Blood Culture - Preliminary NO GROWTH AFTER 48 HOURS 10/28/24 18:00 Blood Blood Culture - Preliminary NO GROWTH AFTER 48 HOURS Constitutional: Present no acute distress, morbidly obese and cooperative Head: Present atraumatic Eyes: Present as per HPI ENT: Present normal exam Neck: Present normal inspection and full ROM Respiratory: Present CTA bilaterally, normal respiratory effort, able to speak in complete sentences and symmetric chest movement; Absent wheezes or crackles Cardiac: Present Regular Rhythm, No Murmur, Tachycardia and pedal pulses present GI: Present soft and normal bowel sounds; Absent distention or tenderness Rectal (female): Present deferred (female): Present deferred Extremities: Present normal inspection, full ROM, tenderness (Left calf tenderness noted) and normal capillary refill; Absent edema Skin: Present intact and dry; Absent erythema or rash Neuro: Present Grossly Intact, alert, awake, oriented x 3 and moves all extremities Assessment and Plan *Assessment and plan (1) Pulmonary nodule: Status: Acute Category: Medical Code(s): R91.1 - Solitary pulmonary nodule (2) Pulmonary embolism: Status: Acute Qualifiers: Pulmonary embolism type: multiple subsegmental (without acute cor pulmonale) Qualified Code(s): I26.94 - Multiple subsegmental thrombotic pulmonary emboli without acute cor pulmonale Category: Medical Code(s): I26.99 - Other pulmonary embolism without acute cor pulmonale (3) Tachycardia: Status: Acute Category: Medical Code(s): R00.0 - Tachycardia, unspecified (4) BMI 50.0-59.9, adult: Status: Acute Category: Medical Code(s): Z68.43 - Body mass index [BMI] 50.0-59.9, adult (5) Rhinovirus: Status: Acute Category: Medical Code(s): B34.8 - Other viral infections of unspecified site (6) Cor pulmonale, acute: Status: Acute Category: Medical Code(s): I26.09 - Other pulmonary embolism with acute cor pulmonale (7) Anxiety: Status: Acute Category: Medical Code(s): F41.9 - Anxiety disorder, unspecified (8) Hypertension: Status: Acute Qualifiers: Hypertension type: primary hypertension Qualified Code(s): I10 - Essential (primary) hypertension Category: Medical Code(s): I10 - Essential (primary) hypertension Plan Maisha Tse is a 34-year-old female with a medical history significant for anxiety/depression, morbid obesity (BMI 57), hypertension who presented with shortness of breath and was admitted for bilateral pulmonary emboli. #Acute hypoxic respiratory failure, resolved #Extensive bilateral pulmonary emboli #Cor pulmonale #RV strain #Rhinovirus ? Presented with at least 1 week of worsening shortness of breath. CTA chest 10/28/2024 revealed extensive bilateral pulmonary emboli with RV strain, RV/LV ratio 1.2. ? Initial EKG showed sinus tachycardia, troponins unremarkable. Respiratory panel positive for rhinovirus. Patient remains on room air. ? Patient recently fractured her right calcaneus, was in a boot for about a month but denies being stationary. Also denies recent extended trips, contraception, smoking. ? Patient does say that her left lower extremity is slightly swollen, does have left calf tenderness. No appreciable asymmetry, erythema, swelling on exam. ? Spoke with cardiology, Dr. Palomino who recommends therapeutic Lovenox (160 mg subcu twice daily) and echo Thursday morning. If RV strain/RV:LV ratio improved, will hold on thrombectomy. ? Continuous cardiac telemetry, patient and NSR occasionally tachycardic with exertion. ? Follow-up BLANKA comprehensive panel, factor V Leiden for hypercoagulable workup. TSH, LDL normal. ? Follow-up ECHO, left lower extremity venous Doppler Thursday prior to procedure. ? At this time, PE seems unprovoked. Obesity is a risk factor. Rhinovirus/subpleural nodules may be a trigger, though would be rare. ? Plan to refer to hematology for further evaluation. #Subpleural nodules ? At least two 8 mm subpleural nodules found in the lingular region. Patient denies asbestos exposure, or other environmental pollutants that she can think of. ? Non-smoker. Follow-up BLANKA comprehensive panel as above. ? Pulmonology consulted, pending further recommendations. #Anxiety/depression ? Continue home venlafaxine, lamotrigine. ? Continue Ativan 0.5 mg 3 times daily as needed. Patient's mother at bedside, deny questions at this time. Amendable to current plan. #Hypertension ? Continue home lisinopril 20 mg. #Obesity ? Complicates all aspects of care. Full code DVT prophylaxis: Therapeutic Lovenox as above Regular diet Ambulate as tolerated
--- NOTE | 2024-10-31 16:31 | PC.NURSE ---
patient is a/o x4 and remains on room air. patient c/o left calf tenderness earlier in shift but denied wanting pain medication, offered to apply ice and elevation, patient denied, no swelling or redness noted to area. patient did state she was feeling anxious earlier in shift, ativan given per MAR. on lovenox for VTE. patient only c/o SOA upon exertion. NSR on tele this shift, HR 90s-100s. no complaints at this time, call light within reach.
--- NOTE | 2024-10-31 16:54 | PC.NURSE ---
patient c/o lightheadedness and SOA after shower. assessed patients vitals BP: 105/80, HR 100, O2 RA 100%, RR 22. MD notified/aware. encouraged patient to drink plenty of PO fluids. patient stated she is feeling much better after sitting up in the chair and is currently eating dinner. gave patient gatorade. no further requests at this time, patients mom at bedside, call light within reach
[2024-10-31] MEDS: BENZONATATE 100MG CAPSULE 200 MG PO (20:25)
[2024-10-31] MEDS: PANTOPRAZOLE 40MG TABLET 40 MG PO (20:26)
[2024-11-01] VITALS: BP 110/71; PULSE 89; PULSE 95; RESP 16; TEMP 36.5; O2SAT 91
--- NOTE | 2024-11-01 | CA_ITS ---
FINAL REPORT TECHNIQUE: Bilateral lower extremity venous duplex was performed with augmentation and compression. CLINICAL HISTORY: BILATERAL PULMONARY EMBOLI, MORBID OBESITY, HTN COMPARISON: None FINDINGS: Proper flow is seen throughout the deep venous system of the right lower extremity. There is no evidence of deep venous thrombosis. In the left lower extremity, there is visible deep venous thrombosis in the left popliteal, peroneal, and calf veins. IMPRESSION: No evidence of deep venous thrombosis in the right lower extremity. Visible DVT left lower extremity as above. Reviewed, Interpreted and Dictated by Rudy Garay MD Transcribed by Zohreh Hernandez Authenticated and [facility]
[2024-11-01 04:00] VITALS: BP 121/73; PULSE 80; PULSE 81; RESP 16; TEMP 36.5; O2SAT 97; BMI 58.0
--- NOTE | 2024-11-01 06:00 | CA_ITS ---
APPROVED REPORT EXAM: Comprehensive 2D, Doppler, and color-flow Echocardiogram Sales Broker: Kathy Amor, JUDITH, RVS Ht: 5 ft 5 in Wt: 355lbs BSA: 2.52 BP: 154/44 mmHg Indications: Bilateral Pumonary emboli, HTN, SOA 2D Dimensions LVDd 5.08 cm F: 3.9 - 5.3 LVEF (Visual) 54.10 % LVDs 3.65 cm F: 2.2 - 3.5 EF AP4 35.60 % Left Atrium 3.03 cm F: 2.7 - 3.8 GL Strain -13.8 % M-Mode Dimensions RVDd 3.19 cm (0.9-2.6) LA Diam 3.93 cm (1.9-4.0) LVDd 5.05 cm (3.5-5.7) LVDs 2.96 cm (3.5-5.7) IVSd 0.99 cm (0.6-1.1) PWd 0.83 cm (0.6-1.1) EF (Teich) 72.00% EPSs 0.53 cm FS 41.40% EDV (Teich) 121.00 mL TAPSE 1.83 (<1.7) ESV (Teich) 33.90 mL LV Diastology E Decel Time 140 (160-240 msec) E/A Ratio 1.35 MED A' 8.90 cm/s LAT A' 6.50 cm/s Aortic Valve FAITH Index 0.95 cm2/m2 AoV Peak Shaji. 124.0 (50-130 cm/s) AO Peak GR. 6.20 mmHg AO Mean GR. 3.10 (<5 mmHg) AO VTI 20.7 (18-25 cm) FAITH (VTI) 2.45 (2.5-4.5 cm2) Mitral Valve MV A Velocity 60.0 (40-130 cm/s) E/A Ratio 1.35 Tricuspid Valve TR P. Velocity 221.00 cm/s RAP Estimate 10.00 mmHg RVSP 29.60 mmHg Left Ventricle The left ventricle is normal size. Left ventricular systolic function is normal. The left ventricular ejection fraction is within the normal range. There is normal left ventricular wall thickness. There is normal LV segmental wall motion. The left ventricular diastolic function is normal. LVEF is 55% Right Ventricle The right ventricle is mildly dilated. The right ventricular systolic function is normal. Atria The left atrium size is normal. The right atrium size is normal. There is no color Doppler evidence of interatrial shunt. Aortic Valve The aortic valve opens well. There is no hemodynamically significant aortic valvular stenosis. No aortic regurgitation is present. Mitral Valve The mitral valve is normal in structure. No evidence of mitral valve stenosis. Trace mitral regurgitation is present. Tricuspid Valve The tricuspid valve leaflets are thin and pliable. Trace tricuspid regurgitation. There is insufficient TR jet to estimate RVSP. Pulmonic Valve The pulmonary valve is grossly normal in structure. Trace pulmonic valve regurgitation is present. Great Vessels The aortic root is normal in size. IVC is normal in size and collapses >50% with inspiration. Pericardium There is no pericardial effusion. Other Information Study Quality: Technically Difficult Conclusion Technically difficult study. Normal LV systolic function. Mild RV dilation with normal RV function. No significant valvular stenosis or regurgitation. Electronically signed by : Gianna Fletcher MD 11/01/2024 12:25:06
--- NOTE | 2024-11-01 06:11 | PC.NURSE ---
Pt. is alert and orientated x 4. Pt. was on room air but had low sats when sleeping. Pt. put on 2 liters per N/C and O2 sats improved. Pt. c/o pain to left calf but did not want any pain medications. Pt. anxious about test scheduled for today. Pt. medicated with PRN Ativan dose and anxiety decreased. Pt. denies chest pain, dizziness, nausea, vomiting. Pt. c/o Shortness of breath with exertion. walking to the Bathroom and back to bed and she is short of breath. Pt. on desk monitor. Sinus rhythm to sinus tach. Pt. on Lovenox for VTE. Personal items and call christina in reach. Bed in low and locked position. safety measures in place.
[2024-11-01 08:00] VITALS: BP 135/83; PULSE 85; PULSE 87; RESP 18; TEMP 36.6; O2SAT 95
[2024-11-01] MEDS: LISINOPRIL 20MG TABLET 20 MG PO (08:12)
[2024-11-01] MEDS: VENLAFAXINE XR 75MG CAPSULE 225 MG PO (08:14)
--- NOTE | 2024-11-01 09:48 | EXP.PULM.CON ---
History of Present Illness History of present illness: Ms. Tse is a 34-year-old female no prior respiratory complaints presented today with worsening respiratory distress found to have bilateral pulmonary embolism and pulmonary was called for further evaluation and management. Denies any personal history of blood clots. one without any complications. Admits worsening respiratory symptoms for the last 2 weeks gradually worsening. [facility] Disclaimer: The information contained in this section may have been updated after the patient was seen, as this information can be updated by other users. Medical History (Updated 11/01/24 @ 11:15 by Chepe Bernal MD) Bilateral pulmonary embolism Acute respiratory failure with hypoxia Left knee pain Obesity Snoring Daytime somnolence Sinusitis, acute, maxillary Depression Otitis media Acute flank pain Mild sprain of right ankle Avulsion fracture of calcaneus OCD (obsessive compulsive disorder) MDD (major depressive disorder), recurrent episode, moderate Influenza A Generalized anxiety disorder Major depressive disorder Pharyngitis COVID-19 Exposure to COVID-19 virus Viral upper respiratory illness Sore throat Laceration of right hand Bronchitis Surgical History No significant past surgical history Family History Other No significant family history Social History Smoking Status: Never smoker alcohol intake: current alcohol intake frequency: holidays/special occasions only substance use type: denies use current occupational status: employed Travel in the last 8 weeks?: None household members: family housing: house number of children: 1 Have you lived/traveled outside [place] in past 30 days?: No Contact w/someone who lives/traveled outside [place] past 30 days?: No Exposure to someone with infectious disease in past 14 days?: No Do you have a fever (greater than 100.4 F or 38 C)?: No Have you tested positive for COVID-19?: No Exposed to someone with COVID-19 in past 14 days?: No Do you have a sore throat?: No Do you have a cough?: No Do you have any weakness?: No Do you have any diarrhea?: No Are you experiencing any unusual bleeding?: No Do you have any muscle aches/pain?: No Do you have any abdominal pain?: No Are you experiencing loss of taste or smell?: No Review of Systems Constitutional Constitutional: Reports anorexia, Reports body ache(s) and Reports fatigue Eyes Eyes: Denies eye discharge, Denies dry eyes, Denies irritation and Denies itchy eyes ENT Ears, Nose, Mouth, and Throat: Denies epistaxis, Denies facial pain, Denies lip swelling and Denies throat swelling *Cardiovascular Cardiovascular: Reports dyspnea and Reports dyspnea on exertion *Respiratory Respiratory: Denies change in phlegm color, Denies chest congestion, Denies cough, Reports dyspnea, Reports dyspnea on exertion, Denies excessive phlegm production, Denies hemoptysis, Denies pain on inspiration, Denies pain with cough and Denies wheezing *Gastrointestinal Gastrointestinal: Denies abdominal pain, Denies belching and Denies cramping *Musculoskeletal Musculoskeletal: Reports back pain, Reports myalgias and Reports other (No small joint swelling or Pain) *Neurologic Neurologic: Reports as per HPI Psychiatric Psychiatric: Denies homicidal ideation and Denies suicidal ideation Endocrine Endocrine: Reports fatigue and Denies heat intolerance Hematologic/Lymphatic Hematologic/Lymphatic: Denies easy bleeding and Denies lymphadenopathy Allergic/Immunologic Allergic/Immunologic: Denies itchy eyes, Denies lip swelling, Denies throat swelling and Denies wheezing Pulmonology Exam Inpatient Vital signs and Labs for Last 24 Hours: Temp Pulse Resp BP Pulse Ox O2 Del Method O2 Flow Rate 97.8 F 85 18 135/83 95 Room Air 2 11/01/24 08:00 11/01/24 08:00 11/01/24 08:00 11/01/24 08:00 11/01/24 08:00 11/01/24 08:43 11/01/24 06:57 I & O for Labs for Last 24 Hours: Intake & Output 10/29/24 10/30/24 10/31/24 11/01/24 23:59 23:59 23:59 23:59 Intake Total 850 / 1050 1320 / 1570 1639 345 / 345 Output Total 800 / 800 2049 0 / 0 0 / 0 Balance 50 / 250 -730 / -480 1639 / 345 Weight 350 lb 6 oz 349 lb 6.4 oz 347 lb 11.2 oz 348 lb 3 oz Constitutional: Present mild distress Head: Present normocephalic and atraumatic ENT: Present normal exam, normal oropharynx and mucous membranes moist Neck: Present normal inspection and full ROM Respiratory: Present respiratory distress and able to speak in complete sentences; Absent prolonged expiratory phase, wheezes, crackles or diminished air movement Cardiac: Present S1/S2, Tachycardia and radial pulses present GI: Present soft and distention; Absent tenderness or guarding Rectal (female): Present deferred (female): Present deferred Skin: Present intact; Absent cyanosis or jaundice Neuro: Present alert, awake and oriented x 3 Extremities: Present normal inspection; Absent clubbing or cyanosis Psychiatric: Present normal affect and cooperative Meds Home Medications and Allergies Home Medications ?Medication ?Instructions ?Recorded ?Confirmed ?Type venlafaxine 75 mg capsule,extended 75 mg PO DAILY #30 caps 12/29/23 10/28/24 Rx release 24 hr (Effexor XR) lamotrigine 100 mg tablet 100 mg PO DAILY #30 tabs 08/15/24 10/28/24 Rx (Lamictal) lamotrigine 25 mg tablet (Lamictal) 25 mg PO DAILY #30 tabs 08/15/24 10/28/24 Rx venlafaxine 150 mg 150 mg PO DAILY #30 caps 09/06/24 10/28/24 Rx capsule,extended release 24 hr atorvastatin 10 mg tablet 10 mg PO DAILY 10/29/24 10/29/24 History lisinopril 20 mg tablet 20 mg PO DAILY 10/29/24 10/29/24 History New Prescriptions to Start Prescriptions: Allergies Allergy/AdvReac Type Severity Reaction Status Date / Time No Known Allergies Allergy Verified 11/30/23 15:53 Results Laboratory Findings 10/31/24 06:03 10/31/24 06:03 Abnormal lab findings: Abnormal Labs 10/28/24 10/28/24 10/28/24 17:28 17:40 18:00 WBC 13.3 H MPV 10.8 H Neut # (Auto) 9.1 H APTT 25.6 L VBG pH VBG pCO2 32.9 L VBG pO2 48.2 H VBG HCO3 19.1 L VBG Total CO2 20.1 L VBG O2 Saturation 82.4 H VBG Base Excess -6.0 L Sodium 135 L Chloride Carbon Dioxide 19 L Glucose 106 H AST 42 H C-Reactive Protein 49.4 H NT-Pro-B Natriuret Pep 2330 H LDL Cholesterol Direct HDL Cholesterol Cholesterol/HDL Ratio Entero/Rhino (PCR) Detected A 10/29/24 10/29/24 10/29/24 00:39 06:00 06:48 WBC MPV 11.0 H Neut # (Auto) APTT 31.0 L VBG pH 7.43 H VBG pCO2 29.6 L VBG pO2 60.7 H VBG HCO3 19.3 L VBG Total CO2 20.2 L VBG O2 Saturation 92.2 H VBG Base Excess -5.0 L Sodium Chloride 108 H Carbon Dioxide 18 L Glucose AST 41 H C-Reactive Protein NT-Pro-B Natriuret Pep LDL Cholesterol Direct HDL Cholesterol Cholesterol/HDL Ratio Entero/Rhino (PCR) 10/30/24 10/31/24 06:00 06:03 WBC MPV 11.0 H 10.5 H Neut # (Auto) APTT VBG pH VBG pCO2 VBG pO2 VBG HCO3 VBG Total CO2 VBG O2 Saturation VBG Base Excess Sodium Chloride Carbon Dioxide 20 L Glucose AST 37 H 47 H D C-Reactive Protein NT-Pro-B Natriuret Pep LDL Cholesterol Direct 71.17 L HDL Cholesterol 32 L Cholesterol/HDL Ratio 4.4 H Entero/Rhino (PCR) Assessment and Plan *Assessment and plan (1) Acute respiratory failure with hypoxia: Status: Acute Category: Medical Code(s): J96.01 - Acute respiratory failure with hypoxia (2) Bilateral pulmonary embolism: Status: Acute Category: Medical Code(s): I26.99 - Other pulmonary embolism without acute cor pulmonale (3) Pulmonary nodule: Status: Acute Category: Medical Code(s): R91.1 - Solitary pulmonary nodule Plan Ms. Tse is a 34-year-old female no prior respiratory complaints presented today with worsening respiratory distress found to have bilateral pulmonary embolism and pulmonary was called for further evaluation and management. Denies any personal history of blood clots. one without any complications. Admits worsening respiratory symptoms for the last 2 weeks gradually worsening. CTA upon admission 10/29/2019 for extensive bilateral pulmonary emboli involving both the left and right main pulmonary arteries. Patient also noted to have interval development of 8 mm subpleural nodule which was new from her prior CT from 2022. On examination today mild respiratory distress. Not needing any oxygen supplementation at rest, saturating 94% on room air. Plan: Continue Eliquis full dose anticoagulation for at least 6 months Hypercoagulable workup as an outpatient basis Follow-up with 3-month CT chest without contrast for the concerning 8 mm subpleural nodule Continue age-appropriate screening Follow-up with cardiology recommendations
--- NOTE | 2024-11-01 11:04 | P.DS_ITS ---
<Statement entered by Tahir Okeefe MD - 11/01/24 16:52> Rounded on patient after nurse practitioner. Personally examined and interviewed patient. Agree with exam findings and care plan as documented. General Admission date:: 10/28/24 Discharge date: 11/01/24 HPI HPI HPI: This 34-year-old morbidly obese female, has come to the emergency room with shortness of breath. CT scan shows multiple PEs in both lungs.. Patient is in the ER on the monitor heart rate slightly elevated into the 1 teens blood pressure slightly elevated.. Patient is not complaining of shortness of breath while lying on the stretcher. Evaluation of old records her heart rate and blood pressure are not much different than they have been in previous records. Patient gives me a history of in July had stepped in a hole came to the emergency room and found to have probably an avulsion fracture of the calcaneus. She ended up in a walking boot for this for quite some time.. Today she notes that her left leg has some pain she in the ER note it was in the calf while I was examining her it was actually anterior left knee. Presently her Homans' sign is negative in both calfs.. She is able to talk to me without any distress she is not on oxygen O2 saturations are in the high 90s. Patient appears calm skin is pink warm and dry. Having conferred with the ER provider who is talked with Dr. Palomino, anticoagulation has been started and he will see her in the morning.. Also cardiac echo and lower extremity Doppler have been ordered. Patient will be kept n.p.o. after midnight except for ice chips Hospital Course Hospital Course Hospital Course: Ms. Tse is a 34-year-old female who presented to the emergency department on 10/28/2024 with complaints of shortness of breath. She states that she has been short of breath for a couple days, worse with exertion. She has a primary medical history of anxiety, hypertension, morbid obesity, generalized anxiety disorder, MDD, OCD. Workup in the emergency department revealed a bilateral, submassive pulmonary embolism and positive for rhinovirus. Patient was admitted to the hospital for further management of her PE, cardiology and pulmonology recommendations. Plan of care was as follows: #Acute hypoxic respiratory failure, resolved #Extensive bilateral pulmonary emboli #Cor pulmonale, resolved #Rhinovirus ? Patient initial chest CTA on 10/28/2024 revealed extensive bilateral pulmonary embolism with RV strain, RV/LV ratio 1.2. Patient had echo done day of discharge which showed minimal RV strain, normal RV/LV ratio, RVSP 29. Patient also had bilateral lower extremity venous Dopplers which revealed left popliteal thrombus. Recommendations by cardiology to treat with Eliquis 10 mg twice daily. Patient received Lovenox 1 mg/kg dosing twice daily during hospital course. Patient discharged home with Eliquis samples. ? Patient was able to walk 150 feet on room air, O2 saturation remained at 94% or above. Patient has remained hemodynamically stable during admission. ? Patient will follow-up with cardiology next week, as well as hematology for further clotting disorder workup. #Subpleural nodules ? CTA of chest showed at least two 8 mm subpleural nodules found in the lingular region. Patient denies asbestos exposure or environmental pollutant exposure that she is aware of. She is a non-smoker. [facility]ANKA comprehensive panel pending, patient will follow-up with pulmonology in 6 to 8 weeks. #Anxiety/depression ?Patient should continue home medication of Lamictal 125 mg daily and Effexor 225 mg daily. #Hypertension #Hyperlipidemia ?Patient should continue atorvastatin 10 mg daily and lisinopril 20 mg daily at discharge. Total time spent on discharge 32 minutes in counseling, documentation, chart review, and direct care with patient. Exam Data for Last 24 hours Vital signs and Labs for Last 24 Hours: Temp Pulse Resp BP Pulse Ox O2 Del Method O2 Flow Rate 97.8 F 85 18 135/83 95 Room Air 2 11/01/24 08:00 11/01/24 08:00 11/01/24 08:00 11/01/24 08:00 11/01/24 08:00 11/01/24 10:45 11/01/24 06:57 I & O for Last 24 hours: Intake & Output 10/29/24 10/30/24 10/31/24 11/01/24 23:59 23:59 23:59 23:59 Intake Total 850 / 1050 1320 / 1570 1639 61 Output Total 800 / 800 2049 0 / 0 0 / 0 Balance 50 / 250 -730 / -480 1639 Weight 158.927 kg 158.485 kg 157.714 kg 157.935 kg Constitutional Constitutional: no acute distress, morbidly obese and cooperative *Routine HEENT Exam Head: Present normocephalic Eye: Present EOMI and PERRL ENT: Present mucous membranes moist *Routine Neck Exam Neck: Present supple; Absent lymphadenopathy *Routine Respiratory Exam Respiratory: Present CTA bilaterally, normal respiratory effort, able to speak in complete sentences and symmetric chest movement; Absent wheezes or crackles *Routine Cardiovascular Exam Cardiovascular: Present RRR, Normal S1 and Normal S2; Absent murmur *Routine Abdominal Exam Abdominal: Present soft and normoactive bowel sounds; Absent tenderness or distended *Routine Extremities Exam Extremities: Present pulses intact, normal capillary refill and calf tenderness (Left calf); Absent cyanosis, clubbing or edema *Routine Skin Exam Skin: Present intact and warm; Absent erythema, dry or rash *Routine Neurological Exam Neurological: Present alert, oriented X3, moving all extremities, vision grossly intact, hearing grossly intact and normal speech Results Data Completed and Pending Labs on day of discharge: Preliminary micro results at discharge 10/28/24 18:15 Blood Culture - Preliminary Blood NO GROWTH AFTER 48 HOURS 10/28/24 18:00 Blood Culture - Preliminary Blood NO GROWTH AFTER 48 HOURS DS: Diagnosis Discharge Diagnosis (1) Pulmonary nodule: Status: Acute Code(s): R91.1 - Solitary pulmonary nodule (2) Pulmonary embolism: Status: Acute Code(s): I26.99 - Other pulmonary embolism without acute cor pulmonale Qualifiers: Pulmonary embolism type: multiple subsegmental (without acute cor pulmonale) Qualified Code(s): I26.94 - Multiple subsegmental thrombotic pulmonary emboli without acute cor pulmonale (3) Tachycardia: Status: Acute Code(s): R00.0 - Tachycardia, unspecified (4) BMI 50.0-59.9, adult: Status: Acute Code(s): Z68.43 - Body mass index [BMI] 50.0-59.9, adult (5) Rhinovirus: Status: Acute Code(s): B34.8 - Other viral infections of unspecified site (6) Cor pulmonale, acute: Status: Acute Code(s): I26.09 - Other pulmonary embolism with acute cor pulmonale (7) Anxiety: Status: Acute Code(s): F41.9 - Anxiety disorder, unspecified (8) Hypertension: Status: Acute Code(s): I10 - Essential (primary) hypertension Qualifiers: Hypertension type: primary hypertension Qualified Code(s): I10 - Essential (primary) hypertension (9) Deep venous thrombosis of left popliteal vein: Status: Acute Code(s): I82.432 - Acute embolism and thrombosis of left popliteal vein Meds Home Medications and Allergies Home Medications ?Medication ?Instructions ?Recorded ?Confirmed ?Type venlafaxine 75 mg capsule,extended 75 mg PO DAILY #30 caps 12/29/23 10/28/24 Rx release 24 hr (Effexor XR) lamotrigine 100 mg tablet 100 mg PO DAILY #30 tabs 10/28/24 Rx (Lamictal) lamotrigine 25 mg tablet (Lamictal) 25 mg PO DAILY #30 tabs 08/15/24 10/28/24 Rx venlafaxine 150 mg 150 mg PO DAILY #30 caps 10/2410/28/24 Rx capsule,extended release 24 hr atorvastatin 10 mg tablet 10 mg PO DAILY 10/29/2410/02 History lisinopril 20 mg tablet 20 mg PO DAILY 10/29/2410/02 History apixaban 5 mg tablet (Eliquis) 10 mg (2 x 5 mg) PO BID 30 days #0 11/01/24 Rx tabs New Prescriptions to Start Prescriptions: Allergies Allergy/AdvReac Type Severity Reaction Status Date / Time No Known Allergies Allergy Verified 11/30/23 15:53 Discharge Plan Disposition Patient Disposition: Home, Self-Care Condition: Fair Discharge Order Discharge Orders: Discharge Order (Routine); Ordered 11/01/24 Ordered By: Nicole Huff Follow up Plan Follow up with: Reinaldo Velasco PA [Physician Associate Vice President, Cardiology] - 11/07/24 8:30 am Jr Li APRN [Primary Care Provider, Family Practice] - 11/09/24 2:20 pm Da Sampson MD [Staff Physician, Oncology] - Enter time for follow up Referral Note: 1 month Problems: Bilateral pulmonary embolism Chepe Bernal MD [Physician, Pulmonology] - 12/19/24 1:00 pm Referral Note: f/u 6-8 weeks Problems: Pulmonary nodule Prescriptions/Medication Reconciliation: New Eliquis 5 mg Tablet 10 mg PO BID 30 Days Qty: 0 0RF Rx Instructions: samples sent with pt. Continued venlafaxine [Effexor XR] 75 mg capsule,extended release 24hr 75 mg PO DAILY Qty: 30 2RF lamotrigine [Lamictal] 100 mg tablet 100 mg PO DAILY Qty: 30 2RF lamotrigine [Lamictal] 25 mg tablet 25 mg PO DAILY Qty: 30 2RF venlafaxine 150 mg capsule,extended release 24hr 150 mg PO DAILY Qty: 30 2RF lisinopril 20 mg tablet 20 mg PO DAILY atorvastatin 10 mg tablet 10 mg PO DAILY Patient Comments: Take 1 tablet by mouth once daily Problem Reconciliation Problems Reviewed?: Yes Patient Discharge Instructions ACTIVITY: Continue current activity DIET: continue same diet Stand Alone Forms: [facility] Work Release Patient Instructions: DI for Pulmonary Embolism, DI for Tachycardia Print Language: Cook Islander Providers Primary Care Provider: Jr Li Admit Provider: Ha Coleman Attending Provider: Ha Coleman
[2024-11-01] MEDS: APIXABAN 5MG TABLET 10 MG PO (11:31)
--- NOTE | 2024-11-01 11:37 | PC.NURSE ---
walked pt 150 feet on room air 02 is 95% to 94%
[2024-11-01 11:54] VITALS: BP 129/81; PULSE 94; RESP 16; TEMP 36.8; O2SAT 93
--- NOTE | 2024-11-01 14:14 | EXP.CARD.CON ---
History of Present Illness History of Present Illness Consult date: 11/01/24 Chief complaint: SOA History of present illness: 34-year-old white female with morbid obesity, BMI 58, presented to the emergency room on 10/28 complaining of lower extremity swelling, pain, as well as shortness of breath. CTA ultimately revealed extensive bilateral PE including distal aspects of both main pulmonary arteries with extension into all lobes with RV strain which is why we are consulted. Dr. Palomino was contacted and pt was admitted over the weekend and started on therapeutic Lovenox. Plan was for 2D echo today and possible thrombectomy, however patient has had significant clinical improvement over the past several days. She is ambulating without O2 and otherwise hemodynamically stable. She denies calf pain and swelling. [facility] Disclaimer: The information contained in this section may have been updated after the patient was seen, as this information can be updated by other users. Medical History Bilateral pulmonary embolism Acute respiratory failure with hypoxia Left knee pain Obesity Snoring Daytime somnolence Sinusitis, acute, maxillary Depression Otitis media Acute flank pain Mild sprain of right ankle Avulsion fracture of calcaneus OCD (obsessive compulsive disorder) MDD (major depressive disorder), recurrent episode, moderate Influenza A Generalized anxiety disorder Major depressive disorder Pharyngitis COVID-19 Exposure to COVID-19 virus Viral upper respiratory illness Sore throat Laceration of right hand Bronchitis Surgical History No significant past surgical history Family History Other No significant family history Social History Smoking Status: Never smoker alcohol intake: current alcohol intake frequency: holidays/special occasions only substance use type: denies use current occupational status: employed Travel in the last 8 weeks?: None household members: family housing: house number of children: 1 Review of Systems Constitutional Constitutional: Denies fatigue and Denies weakness Eyes Eyes: Denies loss of vision ENT Ears, Nose, Mouth, and Throat: Denies hearing loss *Cardiovascular Cardiovascular: Denies chest pain and Denies dyspnea *Respiratory Respiratory: Denies cough and Denies dyspnea *Gastrointestinal Gastrointestinal: Denies change in stool character, Denies nausea and Denies vomiting *Musculoskeletal Musculoskeletal: Denies muscle weakness Integumentary/Breasts Skin/Breast: Denies changing lesions *Neurologic Neurologic: Reports as per HPI, Denies loss of vision and Denies weakness Endocrine Endocrine: Denies fatigue Exam Data for Last 24 hours Vital signs and Labs for Last 24 Hours: Temp Pulse Resp BP Pulse Ox O2 Del Method O2 Flow Rate 98.3 F 94 H 16 129/81 93 L Room Air 2 11/01/24 11:54 11/01/24 11:54 11/01/24 11:54 11/01/24 11:54 11/01/24 11:54 11/01/24 11:54 11/01/24 06:57 I & O for Last 24 hours: Intake & Output 10/29/24 10/30/24 10/31/24 11/01/24 23:59 23:59 23:59 23:59 Intake Total 850 / 1050 1320 / 1570 1639 615 / 615 Output Total 800 / 800 2049 0 / 0 0 / 0 Balance 50 / 250 -730 / -480 1639 615 / 615 Weight 350 lb 6 oz 349 lb 6.4 oz 347 lb 11.2 oz 348 lb 3 oz Constitutional Constitutional: no acute distress and cooperative *Routine HEENT Exam Eye: Present PERRL *Routine Respiratory Exam Respiratory: Present CTA bilaterally; Absent accessory muscle use, wheezes or crackles *Routine Cardiovascular Exam Cardiovascular: Present RRR, Normal S1 and Normal S2; Absent murmur, gallop or rubs *Routine Abdominal Exam Abdominal: Present soft; Absent tenderness *Routine Extremities Exam Extremities: Present pulses intact; Absent cyanosis or edema *Routine Skin Exam Skin: Present intact; Absent erythema or wounds *Routine Neurological Exam Neurological: Present alert and oriented X3 Routine Psychiatric Exam Psychiatric: Present cooperative Meds Home Medications and Allergies Home Medications ?Medication ?Instructions ?Recorded ?Confirmed ?Type venlafaxine 75 mg capsule,extended 75 mg PO DAILY #30 caps 12/29/23 10/28/24 Rx release 24 hr (Effexor XR) lamotrigine 100 mg tablet 100 mg PO DAILY #30 tabs 08/15/24 10/28/24 Rx (Lamictal) lamotrigine 25 mg tablet (Lamictal) 25 mg PO DAILY #30 tabs 08/15/24 10/28/24 Rx venlafaxine 150 mg 150 mg PO DAILY #30 caps 09/06/24 10/28/24 Rx capsule,extended release 24 hr atorvastatin 10 mg tablet 10 mg PO DAILY 10/29/24 10/29/24 History lisinopril 20 mg tablet 20 mg PO DAILY 10/29/24 10/29/24 History apixaban 5 mg tablet (Eliquis) 10 mg (2 x 5 mg) PO BID 30 days #0 11/01/24 Rx tabs New Prescriptions to Start Prescriptions: Allergies Allergy/AdvReac Type Severity Reaction Status Date / Time No Known Allergies Allergy Verified 11/30/23 15:53 Assessment and Plan *Assessment and plan (1) Bilateral pulmonary embolism: Status: Acute Category: Medical Code(s): I26.99 - Other pulmonary embolism without acute cor pulmonale (2) Deep venous thrombosis of left popliteal vein: Status: Acute Category: Medical Code(s): I82.432 - Acute embolism and thrombosis of left popliteal vein (3) Cor pulmonale, acute: Status: Acute Category: Medical Code(s): I26.09 - Other pulmonary embolism with acute cor pulmonale (4) Rhinovirus: Status: Acute Category: Medical Code(s): B34.8 - Other viral infections of unspecified site (5) Tachycardia: Status: Acute Category: Medical Code(s): R00.0 - Tachycardia, unspecified Plan Acute bilateral pulmonary embolism and left lower extremity DVT - New diagnosis this admission with CTA revealing PE in distal aspects of both main pulmonary arteries with extension into all lobes - Patient denies prior history of VTE, denies tobacco and oral contraception use. She does report her aunt recently had VTE. Patient did have injury and fracture of right calcaneus earlier this summer and wore a boot for period of time. DVT however appears to be in contralateral left lower extremity. Unclear if there is an association between the two. I advised she would need anticoagulation for minimum of 6 months and then should consider thrombophilia workup. - 2D echo is normal and patient is hemodynamically stable on room air, no indication for procedural thrombectomy. Will treat with Eliquis, 10 mg twice daily for 7 days and 5 mg twice daily thereafter. Patient does not have insurance so samples were provided to her. Morbid obesity, BMI 58 - This is life limiting obesity, will readdress as outpatient CV stable for DC Home with Nathan hood. Written instructions provided to patient and her mother. She can f/u in office 2 weeks. In the meantime, activity as tolerated. I advised her she will likely feel more SOA and weak for a while. We can provide whatever work/STD papers she may need if she brings to office.
--- OUTSIDE RECORDS SUMMARY | 2024-11-01 14:21 | XMS_ITS | Clinical Summary ---
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 Role Phone Pcp, No Primary [...] [facility]-HIV Screening 1989 [facility]-Hepatitis C Screening 1989 [facility]-/Child/Adol SDOH Screenings 1989 [facility]-Varicella Vaccines (1 of 2 - 13+ 2-dose series) 2002 [facility]- SDOH Screenings 06/04/2007 [facility]-Adult SDOH Screenings 06/04/2007 [facility]-Hepatitis B Vaccines (1 of 3 - 19+ 3-dose series) 2008 [facility]-Pap Smear 2010 HPV Vaccines (1 - 3-dose SCDM series) 2016 [facility]-Cervical Cancer Screening 06/04/2019 [facility]-HPV/Cotest 06/04/2019 [id number] Vaccine (3 - 2023- season) 2023 02/02/2021, [...] patient's age to complete this topic Insurance [facility] [employer] [facility] MEDICAID Care Teams 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
--- OUTSIDE RECORDS SUMMARY | 2024-11-01 14:21 | XMS_ITS | Clinical Summary ---
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
--- NOTE | 2024-11-03 10:11 | SW/DCPLANNER ---
Spoke with patient on the phone. Patient stated that she is doing good. Patient stated that she is aware of her upcoming appointments. Patient stated that she is taking her new medicine. Patient stated that her heart rate goes up when she gets up and moves around and that it quickly goes back down to where it should when she sits down. Patient stated that she has no concerns or questions at this time. Min Cates
== END 2024-11-01 12:56 | disposition home or self-care (01) | DRG 175 ==
LOC: ER 19:29 → ICU 19:43 → ER 20:05 → ICU 10-29 05:53 → 2ND 10-29 17:53 → ICU 11-01 14:20
PROVIDERS: Nurse Practitioner Family; Admitting Provider Student in an Organized Health Care Education/Training Program; Emergency Provider Emergency Medicine; PCP Nurse Practitioner Family; Visit Provider Student in an Organized Health Care Education/Training Program
DX: I26.09 Other pulmonary embolism with acute cor pulmonale (principal); J96.01 Acute respiratory failure with hypoxia; I82.432 Acute embolism and thrombosis of left popliteal vein; Z68.43 Body mass index [BMI] 50.0-59.9, adult; I82.452 Acute embolism and thrombosis of left peroneal vein; I82.4Z2 Acute embolism and thrombosis of unspecified deep veins of left distal lower extremity; I26.94 Multiple subsegmental thrombotic pulmonary emboli without acute cor pulmonale; I10 Essential (primary) hypertension; E78.5 Hyperlipidemia, unspecified; E66.01 Morbid (severe) obesity due to excess calories; F41.1 Generalized anxiety disorder; F32.9 Major depressive disorder, single episode, unspecified; F42.9 Obsessive-compulsive disorder, unspecified; B34.8 Other viral infections of unspecified site; M22.42 Chondromalacia patellae, left knee; R91.8 Other nonspecific abnormal finding of lung field; R00.0 Tachycardia, unspecified; Z79.899 Other long term (current) drug therapy; Z87.01 Personal history of pneumonia (recurrent); Z86.19 Personal history of other infectious and parasitic diseases
CPT/HCPCS: 0223U; 36415; 71045; 71275; 80053; 80061; 81241; 82803; 83605; 83735; 83880; 84439; 84443; 84484; 84703; 85025; 85730; 86140; 86225; 86235; 87040; 93005; 93306; 93970; 99285; G0378; J0456; J0696; J1650; J7050; J7120; Q9967

== ENCOUNTER 2024-11-04 10:14 | Inpatient (IN) | payer SELFPAY ==
--- OUTSIDE RECORDS SUMMARY | 2024-10-01 05:00 | XMS_ITS ---
Author Organization [facility] Address [address] [place] [address] Phone [phone] Care Team Providers Care Event Lighting Specialist Name Role Phone Denise Bey Unavailable [phone] Migration, Provider Unavailable Unavailable REASON FOR VISIT EMR-Cornel Encounters Encounter Location Date Provider Diagnosis [facility] [address] [place] [address] 10/01/2024 Provider Migration Plan Of Treatment No Information Progress Notes * RENATO PRATT:1990 (34 yo F)Acc No.[id number]:10/01/2024 Patient: SUDEEP BASSETT :1990 A ge:34 Y S ex:Female Address:[address] [place] [address] [place], [place], [address] Subjective: * Chief Complaints: * E MR-Cornel * * Date:
--- OUTSIDE RECORDS SUMMARY | 2024-10-01 05:00 | XMS_ITS ---
Author Organization [facility] Address [address] [place] [address] Phone [phone] Care Team Providers Care Trash Collector Truck Driver Name Role Phone Denise Bey Unavailable [phone] Migration, Provider Unavailable Unavailable REASON FOR VISIT EMR-Cornel Encounters Encounter Location Date Provider Diagnosis [facility] [address] [place] [address] 10/01/2024 Provider Migration Plan Of Treatment No Information Progress Notes * RENATO PRATT:1990 (34 yo F)Acc No.[id number]:10/01/2024 Patient: SUDEEP BASSETT :1990 A ge:34 Y S ex:Female Address:[address] [place] [address] [address], [place], [address] Subjective: * Chief Complaints: * E MR-Cornel * * Date:
--- OUTSIDE RECORDS SUMMARY | 2024-10-02 05:00 | XMS_ITS ---
Author Organization [facility] Address [address] [place] [address] Phone [phone] Care Team Providers Care Office Workforce Planner Name Role Phone Denise Bey Unavailable [phone] Migration, Provider Unavailable Unavailable REASON FOR VISIT EMR-[facility] Medications Medication SIG (Take, Route, Frequency, Duration) Notes Start Date End Date Status Omeprazole 20 MG Capsule Delayed Release Oral Active Azithromycin 250 MG Tablet Oral Active metroNIDAZOLE 500 MG Tablet Oral Active CEFIXIME 400 MG CAPSULE *[facility] and Interaction Alert[facility]* Active Social History Social History Additional Details Category Social Info Options Details Migrated Social History Migrated Social History Tobacco Years: Never smoker 11/23/2019 Encounters Encounter Location Date Provider Diagnosis [address] [address] 10/02/2024 Provider Migration Plan Of Treatment No Information Progress Notes * MARLENA PRATTOB:1990 (34 yo F)Acc No.[id number]:10/02/2024 Patient: SUDEEP BASSETT :1990 A ge:34 Y S ex:Female Address:[address] [place] [address] [place], [address] Subjective: * Chief Complaints: * E MR-Cornel * Social History: M igrated Social History: M igrated Social History: Tobacco Years: Never smoker 11/23/2019. * Medications: T akingCEFIXIME 400 MG CAPSULE , Notes to Pharmacist: *Reorder from [facility] for eRx and Interaction Alerts*Azithromycin 250 MG Tablet Oral Omeprazole 20 MG Capsule Delayed Release Oral metroNIDAZOLE 500 MG Tablet Oral Taking CEFIXIME 400 MG CAPSULE , Notes to Pharmacist: *Reorder from [facility] for eRx and Interaction Alerts*Taking Azithromycin 250 MG Tablet Oral Taking Omeprazole 20 MG Capsule Delayed Release Oral Taking metroNIDAZOLE 500 MG Tablet Oral * * Date:
--- OUTSIDE RECORDS SUMMARY | 2024-10-02 05:00 | XMS_ITS ---
Author Organization [facility] Address [address] [place] [address] Phone [phone] Care Team Providers Care Electronic Tester Name Role Phone Denise Bey Unavailable [phone] Migration, Provider Unavailable Unavailable REASON FOR VISIT EMR-[facility] Medications Medication SIG (Take, Route, Frequency, Duration) Notes Start Date End Date Status Omeprazole 20 MG Capsule Delayed Release Oral Active Azithromycin 250 MG Tablet Oral Active metroNIDAZOLE 500 MG Tablet Oral Active CEFIXIME 400 MG CAPSULE *[facility]* Active Social History Social History Additional Details Category Social Info Options Details Migrated Social History Migrated Social History Tobacco Years: Never smoker 11/23/2019 Encounters Encounter Location Date Provider Diagnosis [address] [address] 10/02/2024 Provider Migration Plan Of Treatment No Information Progress Notes * MARLENA PRATTOB:1990 (34 yo F)Acc No.[id number]:10/02/2024 Patient: SUDEEP BASSETT :1990 A ge:34 Y S ex:Female Address:[address] [place] [address] [place], [address] Subjective: * Chief Complaints: * E MR-Cornel [...] CAPSULE , Notes to Pharmacist: *Reorder from [facility] for eRx and Interaction Alerts*Taking Azithromycin 250 MG Tablet Oral Taking Omeprazole 20 MG Capsule Delayed Release Oral Taking metroNIDAZOLE 500 MG Tablet Oral * * Date:
[2024-11-04] VITALS (22 sets, daily range): BP systolic 104–173; BP diastolic 66–98; PULSE 33–95; RESP 14–18; TEMP 36.8; O2SAT 92–100; BMI 58.2
--- NOTE | 2024-11-04 10:17 | ECG_ITS ---
APPROVED REPORT Exam: Resting ECG HR:96 bpm ECG Measurements Heart Rate 96 AXES WI 148 P 57 QRSd 93 QRS 17 QT 370 T 55 QTc 423 Conclusion NSR Normal axis Normal intervals No STEMI Electronically signed by : Diego العلي, 11/04/2024 17:34:15
--- NOTE | 2024-11-04 10:20 | HMH.EDCP ---
Discharge Plan Disposition Patient Disposition: Admitted Condition: Fair Clinical Impressions Clinical Impression: Acute pulmonary embolism with acute cor pulmonale Chest pain Qualifiers: Chest pain type: unspecified Qualified Code(s): R07.9 - Chest pain, unspecified Discharge ED Provider: Diego العلي General Chief Complaint: Chest Pain Stated Complaint: CP Time Seen by Provider: 11/04/24 10:16 History of Present Illness HPI narrative: This is a 34-year-old female patient, with past medical history of morbid obesity, anxiety, depression, obsessive-compulsive disorder, and most notably recently diagnosed pulmonary emboli, who is presenting to the emergency department today for evaluation of chest pain. Patient was actually evaluated this last week and was discharged from the hospital on 11/01/2024 after being admitted for multiple pulmonary emboli with evidence of right heart strain. She was considered for thrombectomy, however she had significant reduction in symptoms and improving echocardiogram after treatment with Lovenox so thrombectomy was deferred. She was ultimately discharged home on Eliquis 5 mg twice daily and has been compliant with this therapy. She tells me that for the last 24 hours she has developed worsening left-sided chest pain. Pain is not described as pleuritic in nature. Pain is nonradiating and nonexertional. She is not having cough or production of phlegm. She is not experiencing any abdominal pain. She has not noticed worsening lower extremity erythema or edema. Related Data Home Medications ?Medication ?Instructions ?Recorded ?Confirmed atorvastatin 10 mg tablet 10 mg PO DAILY 10/29/24 11/04/24 lisinopril 20 mg tablet 20 mg PO DAILY 10/29/24 11/04/24 Previous Rx's ?Medication ?Instructions ?Recorded venlafaxine 75 mg capsule,extended 75 mg PO DAILY #30 caps 12/29/23 release 24 hr (Effexor XR) lamotrigine 100 mg tablet 100 mg PO DAILY #30 tabs 08/15/24 (Lamictal) lamotrigine 25 mg tablet (Lamictal) 25 mg PO DAILY #30 tabs 08/15/24 venlafaxine 150 mg 150 mg PO DAILY #30 caps 09/06/24 capsule,extended release 24 hr apixaban 5 mg tablet (Eliquis) 10 mg (2 x 5 mg) PO BID 30 days #0 11/01/24 tabs Allergies Allergy/AdvReac Type Severity Reaction Status Date / Time No Known Allergies Allergy Verified 11/04/24 10:53 [facility] Disclaimer: The information contained in this section may have been updated after the patient was seen, as this information can be updated by other users. Medical History Bilateral pulmonary embolism Acute respiratory failure with hypoxia Left knee pain Obesity Snoring Daytime somnolence Sinusitis, acute, maxillary Depression Otitis media Acute flank pain Mild sprain of right ankle Avulsion fracture of calcaneus OCD (obsessive compulsive disorder) MDD (major depressive disorder), recurrent episode, moderate Influenza A Generalized anxiety disorder Major depressive disorder Pharyngitis COVID-19 Exposure to COVID-19 virus Viral upper respiratory illness Sore throat Laceration of right hand Bronchitis Surgical History No significant past surgical history Family History Other No significant family history Social History (Updated 11/04/24 @ 16:57 by Emily Rutledge RN) Smoking Status: Never smoker alcohol intake: current alcohol intake frequency: holidays/special occasions only substance use type: denies use current occupational status: employed Travel in the last 8 weeks?: None household members: family housing: house number of children: 1 Have you lived/traveled outside US in past 30 days?: No Contact w/someone who lives/traveled outside US past 30 days?: No Exposure to someone with infectious disease in past 14 days?: No Do you have a fever (greater than 100.4 F or 38 C)?: No Have you tested positive for COVID-19?: No Exposed to someone with COVID-19 in past 14 days?: No Do you have a sore throat?: No Do you have a cough?: No Do you have any weakness?: No Are you experiencing any nausea/vomitting?: No Do you have any diarrhea?: No Are you experiencing any unusual bleeding?: No Do you have any muscle aches/pain?: No Do you have any abdominal pain?: No Are you experiencing loss of taste or smell?: No Other Medical History Have you received the Flu Vaccine for this season: No Have you received the Pneumonia Vaccine: No ROS Obtained: Yes Systems reviewed as appropriate & no additional complaints except as documented Physical Exam General General appearance: other (See MDM) Respiratory Respiratory exam: Present other (See MDM) Cardiovascular Cardiovascular exam: Present other (See MDM) Neurological Exam Neurological exam: Present other (See MDM) HEART Score HEART Score HEART Score assessment performed?: Yes History (anamnesis): Moderately suspicious ECG: Normal Age: <45 years Risk factors: 1-2 risk factors Troponin: </= normal limit HEART Score: 2 Procedures Miscellaneous Procedure Procedure Performed: Limited cardiac ultrasound note Indication: Chest pain Identified cardiac views: Cardiac parasternal long axis Cardiac parasternal short axis Cardiac apical four-chamber Findings: Cardiac activity: Present Gross wall motion: Normal Pericardial effusion: Absent Right heart strain: No D sign present Impression: Grossly normal ejection fraction with no D sign present. Four-chamber apical was very difficult to obtain secondary to body habitus. Attempted to obtain a TAPSE however, I do not trust this value secondary to inadequate views. Images were saved to permanent archive This study was technically adequate CPT: 98813 This study was performed by me and I personally interpreted all images/videos. Based on my clinical judgment these images were inadequate and did necessitate further imaging. Critical Care Critical Care Time Critical Care Time: No Medical Decision Making Medical Records Medical records reviewed: Yes I reviewed the patient's medical records. Pal Inquiry Pt receiving controlled substance: No Pal was queried for this patient: No Vital Signs Vital Signs: 11/04/24 10:19 11/04/24 10:30 11/04/24 10:33 Temperature 98.2 F Temperature Source Oral Pulse Rate 90 95 H Pulse Rate [Left Radial] 95 H Respiratory Rate 16 17 Blood Pressure 104/66 L Blood Pressure [Right Arm] 173/98 H Blood Pressure Mean 81 Blood Pressure Mean [Right Arm] 123 Blood Pressure Source Blood Pressure Source [Right Arm] Automatic Cuff Blood Pressure Position Blood Pressure Position [Right Arm] Sitting 02 Sat by Pulse Oximetry 100 95 Oxygen Delivery Method Room Air 11/04/24 11:01 11/04/24 11:30 11/04/24 12:00 Temperature Temperature Source Pulse Rate 86 79 70 Pulse Rate [Left Radial] Respiratory Rate 16 Blood Pressure 106/73 L 139/87 124/88 Blood Pressure [Right Arm] Blood Pressure Mean 86 Blood Pressure Mean [Right Arm] Blood Pressure Source Blood Pressure Source [Right Arm] Blood Pressure Position Blood Pressure Position [Right Arm] 02 Sat by Pulse Oximetry 97 95 95 Oxygen Delivery Method Room Air 11/04/24 12:30 11/04/24 13:00 11/04/24 14:04 Temperature 98.2 F Temperature Source Oral Pulse Rate 77 33 L 75 Pulse Rate [Left Radial] Respiratory Rate 16 Blood Pressure 138/96 H 126/95 H 127/98 H Blood Pressure [Right Arm] Blood Pressure Mean Blood Pressure Mean [Right Arm] Blood Pressure Source Automatic Cuff Blood Pressure Source [Right Arm] Blood Pressure Position Sitting Blood Pressure Position [Right Arm] 02 Sat by Pulse Oximetry 96 92 L Oxygen Delivery Method Room Air Lab Data Labs: Lab Results 11/04/24 10:22: WBC 7.6, RBC 4.55, Hgb 13.0, Hct 39.2, MCV 86.2, MCH 28.6, MCHC 33.2, RDW 14.4, Plt Count 252, MPV 10.4, Neut % (Auto) 60.1, Lymph % (Auto) 30.9, [place] % (Auto) 5.8, Eos % (Auto) 1.8, Baso % (Auto) 0.7, Neut # (Auto) 4.6, Lymph # (Auto) 2.4, [place] # (Auto) 0.4, Eos # (Auto) 0.1, Baso # (Auto) 0.1, Sodium 138, Potassium 4.1, Chloride 106, Carbon Dioxide 25, Anion Gap 11.1, BUN 10, Creatinine 0.70, Estimated Creat Clear 101, Estimated GFR 95, Est GFR ( Amer) 115, Glucose 102 H, Calcium 9.3, Total Bilirubin 0.6, AST 45 H, ALT 53, Alkaline Phosphatase 93, Troponin I < 0.01, Total Protein 7.4, Albumin 4.4, Globulin 3.0, Albumin/Globulin Ratio 1.5, Lipase 80, HCV Ab CHATO w/Rflx PCR Qn Negative, HIV Ag/Ab Combo Qual Negative 11/04/24 13:06: Troponin I < 0.01 11/04/24 14:10: Sodium 137, Potassium 4.0, Chloride 107, Carbon Dioxide 26, Anion Gap 8.0, BUN 9, Creatinine 0.70, Estimated Creat Clear 101, Estimated GFR 95, Est GFR ( Amer) 115, Glucose 95, Calcium 9.0, Serum HCG, Qual Negative 11/04/24 10:22 11/04/24 14:10 Response Orders (Tests/Meds): ED MEDICATIONS Generic Name Dose Route Start Last Admin Trade Name Freq PRN Reason Stop Dose Admin Acetaminophen 650 mg 11/04/24 16:11 Acetaminophen 325mg Tab PO 12/04/24 16:10 Q4HP PRN Fever or Mild Pain (1-3) Hydrocodone Bitart/Acetaminophen 1 tab 11/04/24 16:11 Hydrocodone/Apap 5/325 Mg Tablet PO 12/04/24 16:10 Q4HP PRN Moderate Pain (4-6) Hydrocodone Bitart/Acetaminophen 2 tab 11/04/24 16:11 Hydrocodone/Apap 5/325 Mg Tablet PO 12/04/24 16:10 Q4HP PRN Severe Pain (7-10) Diazepam 5 mg 11/04/24 14:11 Diazepam 5mg Tablet PO 11/05/24 02:11 ONCE PRN Anxiety Fentanyl Citrate 50 mcg 11/04/24 14:11 11/04/24 16:07 Fentanyl 100mcg/2ml Vial IV 11/05/24 02:11 300 mcg Q3MINP PRN Administration Sedation Fentanyl Citrate 25 mcg 11/04/24 14:11 Fentanyl 100mcg/2ml Vial IV 11/05/24 02:11 Q3MINP PRN Sedation Flumazenil 0.2 mg 11/04/24 14:11 Flumazenil 0.1mg/Ml 5ml Vial IV 11/05/24 02:11 NEEDED PRN Sedation Heparin Sodium (Porcine) 5,000 unit 11/04/24 14:11 11/04/24 14:45 Heparin 1,000 Units/Ml 10ml Vial ([employer]ting [employer] Tender) IV 11/04/24 18:11 10,000 unit NEEDED PRN Administration Emergency Box Hook Up Driver Hydralazine HCl 20 mg 11/04/24 14:11 Hydralazine 20mg/Ml Vial IV 11/04/24 18:11 ONCE PRN sbp>160 Adenosine 180 mg/ Sodium 90 mls @ 857.288 mls/hr 11/04/24 14:11 Chloride IV 11/04/24 18:11 ONCE PRN fractional flow reserve 180 MCG/KG/MIN Adenosine 90 mg/ Sodium 90 mls @ 1,714.576 mls/hr 11/04/24 14:11 Chloride IV 11/04/24 18:11 ONCE PRN fractional flow reserve 180 MCG/KG/MIN Sodium Chloride 1,000 mls @ 25 mls/hr 11/04/24 14:15 11/04/24 14:43 Sod Chloride 0.9% 500ml Bag IV 11/05/24 14:11 25 mls/hr .Q25H PRACHI Administration Iopamidol 130 ml 11/04/24 16:30 11/04/24 16:31 Iopamidol-370 (76%);100ml Bottle IV 11/04/24 16:31 130 ml ONCE ONE Administration Labetalol HCl 20 mg 11/04/24 14:11 Labetalol 20mg/4ml Syringe IV 11/04/24 18:11 ONCE PRN sbp>160 Midazolam HCl 1 mg 11/04/24 14:11 Midazolam 2mg/2ml Vial IV 11/05/24 02:11 Q3MINP PRN Sedation Midazolam HCl 1 mg 11/04/24 14:11 11/04/24 16:06 Midazolam Hcl 1mg/Ml 5ml Vial IV 11/05/24 02:11 13 mg Q3MINP PRN Administration Sedation Naloxone HCl 0.4 mg 11/04/24 14:11 Naloxone 0.4mg/Ml Vial IV 11/05/24 02:11 Q5MINP PRN Decreased Respirations Nitroglycerin 800 mcg 11/04/24 14:11 Nitroglycerin 800mcg/8ml Syr ([employer]ber Cutting Machine Tender) IA 11/04/24 18:11 NEEDED PRN Emergency Box Hook Up Driver Ondansetron HCl 4 mg 11/04/24 14:11 Ondansetron 4mg/2ml Vial IV 11/05/24 02:11 NEEDED PRN Nausea Promethazine HCl 25 mg 11/04/24 14:11 Promethazine Hcl 25mg/Ml 1ml Vial IV 11/05/24 02:11 NEEDED PRN Nausea And Vomiting Protamine Sulfate 50 mg 11/04/24 14:11 Protamine Sulfate 50mg/5ml Vial ([employer]ting Machine Tender) IV 11/04/24 18:11 ONCE PRN act>200 Discontinued Medications Generic Name Dose Route Start Last Admin Trade Name Freq PRN Reason Stop Dose Admin Aspirin 325 mg 11/04/24 10:33 11/04/24 10:42 Aspirin 325mg Tablet PO 11/04/24 10:34 325 mg ONCE ONE Administration Diphenhydramine HCl 50 mg 11/04/24 14:11 11/04/24 14:43 Diphenhydramine 50mg/Ml Vial IV 11/04/24 14:12 50 mg ONCE ONE Administration Heparin Sodium/Sodium Chloride 3,000 unit 11/04/24 14:11 11/04/24 14:43 Heparin 1,000 Units/500ml Ns ([employer] Tender) IV 11/04/24 14:12 3,000 unit ONCE ONE Administration Iopamidol 80 ml 11/04/24 10:46 11/04/24 10:48 Iopamidol-370 (76%);100ml Bottle IV 11/04/24 10:47 80 ml ONCE ONE Administration Lidocaine HCl 10 ml 11/04/24 14:11 11/04/24 14:42 Lidocaine 1% 10ml Mdv IJ 11/04/24 14:12 10 ml ONCE ONE Administration Lidocaine HCl 10 ml 11/04/24 14:11 11/04/24 16:59 Lidocaine 1% 5ml Pf Vial IJ 11/04/24 14:12 Not Given ONCE ONE Morphine Sulfate 4 mg 11/04/24 14:11 11/04/24 16:59 Morphine 4mg/Ml Syringe IV 11/04/24 14:12 Not Given ONCE ONE Sodium Chloride 50 ml 11/04/24 10:46 11/04/24 10:47 0.9 % Sodium Chloride 50 Ml Vial IV 11/04/24 10:47 50 ml ONCE ONE Administration Sodium Chloride 10 ml 11/04/24 10:46 11/04/24 10:47 Sodium Chloride 0.9% 10ml Syr (Rad Only) IV 11/04/24 10:47 10 ml ONCE ONE Administration Sodium Chloride 25 ml 11/04/24 14:11 11/04/24 16:58 Sodium Chloride 0.9% 25ml Bag IV 11/04/24 14:12 Not Given ONCE ONE Verapamil HCl 2.5 mg 11/04/24 14:11 11/04/24 16:59 Verapamil 2.5mg/Ml 2ml Vial IV 11/04/24 14:12 Not Given ONCE ONE ORDERS Category Date Time Status CT angio chest PE protocol Stat Cat Scan 11/04/24 10:33 Completed Consult to Cardiology [CONS] Routine Cons 11/04/24 16:11 Active POCUS Point of Care (ER Only) Stat Exams 11/04/24 10:20 Completed Basic Metabolic Panel Stat Lab 11/04/24 14:10 Completed Complete Blood Count Auto Diff AMLAB Lab 11/05/24 06:00 Ordered Complete Blood Count Auto Diff Stat Lab 11/04/24 10:22 Completed Comprehensive Metabolic Panel Stat Lab 11/04/24 10:22 Completed HIV Combo Stat Lab 11/04/24 10:22 Completed Hepatitis C Ab Qual. W/ RFX Stat Lab 11/04/24 10:22 Completed Lipase Stat Lab 11/04/24 10:22 Completed Serum [HCG Qualitative, Serum] Stat Lab 11/04/24 14:10 Completed Troponin I Q3H Lab 11/04/24 13:06 Completed Troponin I Q3H Lab 11/04/24 16:45 Ordered Troponin I Stat Lab 11/04/24 10:22 Completed ECG Request NEEDED Y 11/04/24 16:15 Ordered ECG Data Tracing #1: Attestation: I reviewed this ECG and interpreted as documented below: ECG Narrative: EKG personally interpreted by me demonstrates normal sinus rhythm with a rate of 96 bpm, normal axis, no [place] prolongation, narrow QRS, no QTc prolongation. No ST elevation or depression. There are new S waves in lead III which are not seen on prior EKGs. No T wave inversions in the inferior leads. MDM Narrative Medical Decision Narrative: In summary, this is a 34-year-old female patient with recently diagnosed pulmonary emboli with acute cor pulmonale now stabilized on Eliquis who is presenting to the emergency department today for evaluation of chest pain. Comorbidities include a past medical history of hypertension as well as multiple psychiatric disorders. On initial evaluation of the patient they were resting comfortably in no acute distress and nontoxic in appearance. They are hemodynamically stable, saturating well room air, and are neurologically intact. On physical examination the patient she is appropriately alert and interactive with a GCS of 15. She is afebrile. Heart and lungs are clear to auscultation bilaterally. No abdominal tenderness palpation. No asymmetric lower extremity erythema or edema. Differential diagnosis includes ACS/MA, pneumothorax, pulmonary edema, acute cor pulmonale, worsening pulmonary embolism burden, dissection, among others. Workup was initiated with an EKG which is interpreted above. We have also obtained hematologic labs and will obtain a CT pulmonary embolism study to ensure that she is not having any worsening pulmonary emboli burden. We will also perform bedside POCUS assessment to assess for right heart dysfunction. Initial interventions included 325 mg of aspirin in the event that she is experiencing acute coronary syndrome. Labs were personally interpreted by me and demonstrate no evidence of leukocytosis, no actionable anemia, no electrolyte derangements or evidence of acute kidney injury. Her troponin and delta troponin are less than 0.01. For all intents and purposes her laboratory assessment is unremarkable. We did proceed with a CT pulmonary embolism study to assess for right heart strain as well as for assessing whether her pulmonary embolism clot burden had increased or decreased. This CT scan was personally turbid by me and demonstrates bilateral pulmonary emboli in the main pulmonary arteries. Official radiology read is in agreement and states that her clot burden has mildly decreased but she is still has an RV LV ratio greater than 1 signifying right heart strain. I did perform a bedside POCUS assessment and was unable to obtain entirely adequate views of the four-chamber apical, however I did calculate a TAPSE that was 17 which is borderline. I am unsure of how accurate this is given the inadequate views secondary to her body habitus. Regardless, she is still experiencing intractable pain so I had an interactive discussion with Dr. Palomino of the cardiology service. In the setting of this clinical scenario he feels that she would benefit from pulmonary emboli thrombectomy. She was ultimately taken to the [facility] for thrombectomy with Dr. Paolmino and was admitted to the internal medicine service for further evaluation and monitoring.
--- OUTSIDE RECORDS SUMMARY | 2024-11-04 10:23 | XMS_ITS | Clinical Summary ---
Author Organization Healthcare Address [address] [place] [address] Care Team Providers Care Classroom Instructor Name Role Phone Pcp, No Primary Care [...] 2016 [facility]-Cervical Cancer Screening 06/04/2019 [facility]-HPV/Cotest 06/04/2019 [id number] Vaccine (3 - 2023- season) 2023 02/02/2021, [...] patient's age to complete this topic Insurance [facility] [email or web address] [facility] MEDICAID Care Teams Classroom Instructor Relationship Specialty Start Date [place] [address] PCP - General Family Medicine 06/13/22
--- OUTSIDE RECORDS SUMMARY | 2024-11-04 10:23 | XMS_ITS | Clinical Summary ---
Author Organization [facility] Address [address] [place] [address], [address] [place] [address] Care Team Providers Care Core Drill Operator Name Role Phone Unavailable Primary Care Provider [...] Documents on File Type Date Recorded Patient Phone Manager Expl anation ACP-Advance Directive 09/16/2012 6:19 PM
--- OUTSIDE RECORDS SUMMARY | 2024-11-04 10:23 | XMS_ITS | Patient Health Record ---
Author Organization [facility] will [facility] Address [address] [place] [address] Phone [phone] Care Team Providers Care Employment Evaluator/Case Manager Name Role Phone Denise Bey Unavailable [phone] Migration, Provider Unavailable Unavailable Reason For Referral No Information Medications Medication SIG (Take, Route, Frequency, Duration) Notes Start Date End Date Status Omeprazole 20 MG Capsule Delayed Release Oral Active Azithromycin 250 MG Tablet Oral Active metroNIDAZOLE 500 MG Tablet Oral Active CEFIXIME 400 MG CAPSULE *Reorder from [employer] for eRx and Interaction Alerts* Active Social History Social History Additional Details Category Social Info Options Details Migrated Social History Migrated Social History Tobacco Years: Never smoker 11/23/2019 Problems Problem Type SNOMED Code ICD Code Onset Dates Problem Status W/U Status Risk Notes Problem History of suspected exposure to biological agent (60568178947563 ) Encounter for observation for suspected exposure to other biological agents ruled out (Z03.818) 0 Active confirmed Encounters Encounter Location Date Provider Diagnosis [facility] [address] [place] [address] 10/01/2024 Provider Migration [facility] [address] [place] [address] 10/02/2024 Provider Migration Plan Of Treatment No Information Insurance Providers Payer Name Payer Address Payer Phone Subscriber Number Group Number Insured Name Patient Relationship to Insured Coverage Start Date Coverage End Date [employer] ([employer]) [address] [place] [address] [id number] Self - patient is the insured
--- NOTE | 2024-11-04 10:33 | CT_ITS ---
FINAL REPORT TECHNIQUE: Axial imaging of the chest is obtained after the administration of contrast. 3-D MIP reformatted images were also obtained and reviewed per PE protocol. This study was performed with techniques to keep radiation doses as low as reasonably achievable (ALARA). Individualized dose reduction techniques using automated exposure control or adjustment of mA and/or kV according to the patient's size were employed. CLINICAL HISTORY: Recent PE, worsening chest pain COMPARISON: 10/28/2024 FINDINGS: Multiple bilateral pulmonary emboli are again seen. Emboli are present in the distal aspects of the bilateral main pulmonary arteries, with segmental emboli noted in all lobes. There is only a minimal decrease in clot burden when compared with the prior examination. No new emboli are identified. There is no aortic dissection. There continues to be a RV/LV ratio greater than 1, consistent with right heart strain. There is no mediastinal, hilar, or axillary lymphadenopathy. The lungs are clear. There is no pleural or pericardial effusion. Limited evaluation of the upper abdomen demonstrates splenomegaly, without acute abdominal abnormality. No acute osseous abnormality. IMPRESSION: No significant change is present in the multiple bilateral pulmonary emboli as described. There is only a minimal reduction in clot burden compared with the prior exam. There continues to be a RV/LV ratio of greater than 1, consistent with right heart strain. Reviewed, Interpreted and Dictated by Palmira Muñoz MD Transcribed by Mercedes Lepe Authenticated and [facility]
[2024-11-04 10:36] LABS: Hematocrit 39.2 % (37.0-47.0); Hemoglobin 13.0 g/dL (12.2-16.2); Immature Granulocytes % 0.7 %; Mean Corpuscular HGB Conc 33.2 g/dL (31.8-35.4); Mean Corpuscular Hemoglobin 28.6 pg (27.0-31.2); Mean Corpuscular Volume 86.2 fl (81-99); Nucleated Red Blood Cells % 0 %; Platelet Count 252 K/mm3 (142-424); Red Blood Count 4.55 M/mm3 (4.20-5.40); Red Cell Distribution Width-SD 44.9 fL; White Blood Count 7.6 K/mm3 (4.8-10.8)
[2024-11-04] MEDS: ASPIRIN 325MG TABLET 325 MG PO (10:42)
--- NOTE | 2024-11-04 10:42 | PC.NURSE ---
pt transported to ct via wheelchair
--- NOTE | 2024-11-04 10:42 | PC.NURSE ---
pt going for CT at this time via wheelchair with nuclear medicine pet ct technologist
[2024-11-04 10:46] LABS: Alanine Aminotransferase 53 U/L (12-78); Albumin Level 4.4 g/dl (3.5-5.0); Albumin/Globulin Ratio 1.5 (1.1-1.8); Alkaline Phosphatase 93 U/L (38-126); Anion Gap 11.1 mEq/L (5-15); Aspartate Amino Transferase 45 U/L (14-36); Bilirubin,Total 0.6 mg/dl (0.2-1.3); Blood Urea Nitrogen 10 mg/dl (7-17); Calcium 9.3 mg/dl (8.4-10.2); Carbon Dioxide 25 mmol/L (22.0-30.0); Chloride 106 mmol/L (98-107); Creatinine Clearance Estimated 101 mL/min (50-200); Creatinine,Serum 0.70 mg/dl (0.52-1.04); Estimated Glomerular Filt Rate 95 ml/min (>60); GFR (African American) 115 ML/MIN (>60); Globulin 3.0 g/dL (1.3-3.2); Glucose 102 mg/dl (74-100); Potassium 4.1 mmoL/L (3.5-5.1); Sodium 138 mmol/L (136-145); Total Protein,Serum 7.4 g/dl (6.3-8.2)
[2024-11-04] MEDS: SODIUM CHLORIDE 0.9% 10ML SYR (RAD ONLY) 10 ML IV (10:47)
[2024-11-04] MEDS: 0.9 % SODIUM CHLORIDE 50 ML VIAL IV (10:47)
[2024-11-04] MEDS: IOPAMIDOL-370 (76%);100ML BOTTLE 80 ML IV (10:48)
--- NOTE | 2024-11-04 10:52 | PC.NURSE ---
pt returned from ct via wheelchair
--- NOTE | 2024-11-04 10:56 | PC.NURSE ---
ilya gaitan at bedside with ultrasoud
[2024-11-04 11:02] LABS: Troponin I < 0.01 ng/ml (0.00-0.034)
[2024-11-04 11:20] LABS: Lipase 80 U/L (23-300)
--- NOTE | 2024-11-04 11:41 | PC.NURSE ---
updated pt on plan of care. family at bedside. denies any needs at this time. call light within reach.
[2024-11-04 12:07] LABS: Hepatitis C Ab Qual. W/ RFX NEGATIVE (Negative)
--- NOTE | 2024-11-04 13:05 | PC.NURSE ---
Dr. Candelario cuevas for Dr. العلي.
--- NOTE | 2024-11-04 13:06 | PC.NURSE ---
Dr. العلي speaking with Dr. Palomino.
--- NOTE | 2024-11-04 13:33 | IR_ITS ---
APPROVED REPORT Patient Location: Inpatient Fabricating Machine Operator: Da Vazquez, RT (R) PROCEDURES Right femoral vein central access Catheter placement in the left pulmonary artery Left pulmonary artery selective angiogram Mechanical thrombectomy to the left pulmonary artery Mechanical thrombectomy to the left pulmonary artery subsegmental branch Catheter placement in the right pulmonary artery Right pulmonary artery selective angiogram Mechanical thrombectomy to the right pulmonary artery Mechanical thrombectomy to the right upper right middle and right lower subsegmental pulmonary arteries INDICATION Submassive pulmonary embolism, Right ventricular strain with elevated RV index greater than 1.2, Bilateral pulmonary emboli Informed consent was obtained prior to the procedure. COMPLICATIONS NONE Estimated Blood Loss: LESS THAN 10 ML TECHNIQUE 1% lidocaine used anesthetize the right groin the right femoral vein was accessed via the central technique and a 7 Mongolian then placed on the right femoral vein. This was upsized to an 11 and then 16 Mongolian sheath. Therapeutic heparin was administered. An angled pigtail catheter was placed in the left pulmonary artery and selective angiography was performed. The 16 Mongolian sheath was advanced to the left pulmonary artery and a flash catheter was advanced and thrombectomy was performed in the left lower lobe and left main pulmonary artery. Copious thrombus was removed. There was difficulty cannulating the right main pulmonary artery therefore a [place]anda catheter was advanced and used to cannulate the right pulmonary artery. An 018 wire was then used to exchange and a trailblazer catheter was advanced. An 035 wire was then exchanged through the trailblazer and the 16 Mongolian sheath and flash catheter was advanced to the right pulmonary artery. Mechanical thrombectomy occurred to the right lower right middle and right upper lobe. Copious white and red thrombus was removed. Post chemical embolectomy demonstrated significant improvement with significant debulking of the thrombus. At the end of the procedure the apparatus was removed sheath was removed good hemostasis was achieved using Z stitch patient was transferred to the postop boarding in stable condition ANGIOGRAPHIC RESULTS Left main pulmonary had distal thrombus extending into the left lower subsegmental branch Right main pulmonary artery had distal thrombus extending into the lower middle and upper branches IMPRESSION Extensive thrombus as described above Successful mechanical thrombectomy as described above PLAN 1. Xarelto 15 mg twice daily for 3 weeks followed by 20 mg daily 2. Consideration will be given to perform left lower extremity mechanical thrombectomy if the DVT remains symptomatic. This will be assessed as an outpatient 3. Anticipate discharge home in the morning Electronically signed by : Kei Palomino MD 11/04/2024 17:19:41
[2024-11-04 13:37] LABS: Troponin I < 0.01 ng/ml (0.00-0.034)
--- NOTE | 2024-11-04 13:56 | PC.NURSE ---
[place] and URIEL SANTOS at bedside
--- NOTE | 2024-11-04 14:04 | PC.NURSE ---
consent signed. pt went to labor conciliator via richy buchanan rn and rosanna morris rn
--- NOTE | 2024-11-04 14:04 | PC.NURSE ---
Stat serum preg test added for patient prior to leaving for procedure. Lab notified.
[2024-11-04] MEDS: LIDOCAINE 1% 10ML MDV 10 ML IJ (14:42)
[2024-11-04] MEDS: 0.9 % SODIUM CHLORIDE 500 ML 25 ML IV (14:43)
[2024-11-04] MEDS: HEPARIN 1,000 UNITS/500ML NS (CATH LAB) 3000 UNIT IV (14:43)
[2024-11-04] MEDS: HEPARIN 1,000 UNITS/ML 10ML VIAL (CATH LAB) 5000 UNIT IV (14:45)
[2024-11-04 14:50] LABS: HCG Qualitative, Serum Negative (Negative)
--- NOTE | 2024-11-04 14:57 | PC.NURSE ---
called report to sophia cardenas
[2024-11-04 15:18] LABS: Chloride 107 mmol/L (98-107); Potassium 4.0 mmoL/L (3.5-5.1); Sodium 137 mmol/L (136-145)
[2024-11-04 15:21] LABS: Anion Gap 8.0 mEq/L (5-15); Blood Urea Nitrogen 9 mg/dl (7-17); Calcium 9.0 mg/dl (8.4-10.2); Carbon Dioxide 26 mmol/L (22.0-30.0); Creatinine Clearance Estimated 101 mL/min (50-200); Creatinine,Serum 0.70 mg/dl (0.52-1.04); Estimated Glomerular Filt Rate 95 ml/min (>60); GFR (African American) 115 ML/MIN (>60); Glucose 95 mg/dl (74-100)
[2024-11-04] MEDS: MIDAZOLAM HCL 1MG/ML 5ML VIAL 1 MG IV (16:06)
[2024-11-04] MEDS: FENTANYL 100MCG/2ML VIAL 50 MCG IV (16:07)
[2024-11-04] MEDS: IOPAMIDOL-370 (76%);100ML BOTTLE 130 ML IV (16:31)
--- NOTE | 2024-11-04 17:29 | EXP.HP ---
History of Present Illness *Admission Date: 11/04/24 *Reason for visit:: Shortness of breath *History of present illness: Maisha Tse is a 34-year-old female with a medical history of extensive bilateral pulmonary emboli presented with chest pain and underwent a successful thrombectomy with Dr. Palomino before being admitting for monitoring for bleeding due to large bore access in right groin. On my evaluation of patient, patient was lying in bed comfortably without acute distress. Denies chest pain, shortness of breath. On room air. CBC, CMP unremarkable. Troponin 0.27, however s/p mechanical thrombectomy. PFSH [facility] Disclaimer: The information contained in this section may have been updated after the patient was seen, as this information can be updated by other users. Medical History Bilateral pulmonary embolism Acute respiratory failure with hypoxia Left knee pain Obesity Snoring Daytime somnolence Sinusitis, acute, maxillary Depression Otitis media Acute flank pain Mild sprain of right ankle Avulsion fracture of calcaneus OCD (obsessive compulsive disorder) MDD (major depressive disorder), recurrent episode, moderate Influenza A Generalized anxiety disorder Major depressive disorder Pharyngitis COVID-19 Exposure to COVID-19 virus Viral upper respiratory illness Sore throat Laceration of right hand Bronchitis Surgical History No significant past surgical history Family History Other No significant family history Social History (Updated 11/04/24 @ 16:57 by Eimly Rutledge RN) Smoking Status: Never smoker alcohol intake: current alcohol intake frequency: holidays/special occasions only substance use type: denies use current occupational status: employed Travel in the last 8 weeks?: None household members: family housing: house number of children: 1 Have you lived/traveled outside US in past 30 days?: No Contact w/someone who lives/traveled outside US past 30 days?: No Exposure to someone with infectious disease in past 14 days?: No Do you have a fever (greater than 100.4 F or 38 C)?: No Have you tested positive for COVID-19?: No Exposed to someone with COVID-19 in past 14 days?: No Do you have a sore throat?: No Do you have a cough?: No Do you have any weakness?: No Are you experiencing any nausea/vomitting?: No Do you have any diarrhea?: No Are you experiencing any unusual bleeding?: No Do you have any muscle aches/pain?: No Do you have any abdominal pain?: No Are you experiencing loss of taste or smell?: No Other Medical History Have you received the Flu Vaccine for this season: No Have you received the Pneumonia Vaccine: No Meds Home Medications and Allergies Home Medications ?Medication ?Instructions ?Recorded ?Confirmed ?Type lamotrigine 100 mg tablet 100 mg PO DAILY #30 tabs 08/15/24 11/04/24 Rx (Lamictal) lamotrigine 25 mg tablet (Lamictal) 25 mg PO DAILY #30 tabs 08/15/24 11/04/24 Rx venlafaxine 150 mg 150 mg PO DAILY #30 caps 09/06/24 11/04/24 Rx capsule,extended release 24 hr atorvastatin 10 mg tablet 10 mg PO DAILY 10/29/24 11/04/24 History lisinopril 20 mg tablet 20 mg PO DAILY 10/29/24 11/04/24 History venlafaxine 75 mg tablet,extended 75 mg PO DAILY 11/05/24 11/05/24 History release 24 hr New Prescriptions to Start Prescriptions: Allergies Allergy/AdvReac Type Severity Reaction Status Date / Time No Known Allergies Allergy Verified 11/04/24 10:53 Exam Data for Last 24 hours Vital signs and Labs for Last 24 Hours: Temp Pulse Resp BP Pulse Ox O2 Del Method 98.2 F 75 16 127/98 H 92 L Room Air 11/04/24 14:04 11/04/24 14:04 11/04/24 14:04 11/04/24 14:04 11/04/24 13:00 11/04/24 14:04 Laboratory Results - last 24 hr 11/04/24 10:22: WBC 7.6, RBC 4.55, Hgb 13.0, Hct 39.2, MCV 86.2, MCH 28.6, MCHC 33.2, RDW 14.4, Plt Count 252, MPV 10.4, Neut % (Auto) 60.1, Lymph % (Auto) 30.9, [place] % (Auto) 5.8, Eos % (Auto) 1.8, Baso % (Auto) 0.7, Neut # (Auto) 4.6, Lymph # (Auto) 2.4, [place] # (Auto) 0.4, Eos # (Auto) 0.1, Baso # (Auto) 0.1, Sodium 138, Potassium 4.1, Chloride 106, Carbon Dioxide 25, Anion Gap 11.1, BUN 10, Creatinine 0.70, Estimated Creat Clear 101, Estimated GFR 95, Est GFR ( Amer) 115, Glucose 102 H, Calcium 9.3, Total Bilirubin 0.6, AST 45 H, ALT 53, Alkaline Phosphatase 93, Troponin I < 0.01, Total Protein 7.4, Albumin 4.4, Globulin 3.0, Albumin/Globulin Ratio 1.5, Lipase 80, HCV Ab CHATO w/Rflx PCR Qn Negative, HIV Ag/Ab Combo Qual Negative 11/04/24 13:06: Troponin I < 0.01 11/04/24 14:10: Sodium 137, Potassium 4.0, Chloride 107, Carbon Dioxide 26, Anion Gap 8.0, BUN 9, Creatinine 0.70, Estimated Creat Clear 101, Estimated GFR 95, Est GFR ( Amer) 115, Glucose 95, Calcium 9.0, Serum HCG, Qual Negative I & O for Last 24 hours: Intake & Output 11/01/24 11/02/24 11/03/24 11/04/24 23:59 23:59 23:59 23:59 Weight 158.757 kg Constitutional Constitutional: no acute distress and morbidly obese *Routine HEENT Exam Head: Present normocephalic Eye: Present EOMI and PERRL ENT: Present mucous membranes moist *Routine Neck Exam Neck: Present supple; Absent lymphadenopathy *Routine Respiratory Exam Respiratory: Present CTA bilaterally *Routine Cardiovascular Exam Cardiovascular: Present RRR *Routine Abdominal Exam Abdominal: Present soft and normoactive bowel sounds; Absent tenderness *Routine Rectal Exam Rectal:: deferred *Routine Genitalia Exam Genitalia:: deferred *Routine Extremities Exam Extremities: Absent cyanosis, clubbing or edema *Routine Skin Exam Skin: Present warm; Absent rash *Routine Neurological Exam Neurological: Present alert and oriented X3 Assessment and Plan *Assessment and plan (1) Deep venous thrombosis of left popliteal vein: Status: Acute Category: Medical Code(s): I82.432 - Acute embolism and thrombosis of left popliteal vein (2) Bilateral pulmonary embolism: Status: Acute Category: Medical Code(s): I26.99 - Other pulmonary embolism without acute cor pulmonale Plan Maisha Tse is a 34-year-old female with a medical history of extensive bilateral pulmonary emboli presented with chest pain and underwent a successful thrombectomy with Dr. Palomino before being admitting for monitoring for bleeding due to large bore access in right groin. On my evaluation of patient, patient was lying in bed comfortably without acute distress. Denies chest pain, shortness of breath. On room air. CBC, CMP unremarkable. Troponin 0.27, however s/p mechanical thrombectomy. #Extensive bilateral pulmonary emboli #Left lower extremity DVT #RV strain #History of rhinovirus ? Recently hospitalized about a week ago for extensive bilateral pulmonary emboli, CTA chest initially showing RV strain but ECHO not corroborating this. Discharged in stable condition with Eliquis and close follow-up with cardiology. ? Unfortunately, returns with chest pain and CTA chest continue to show RV strain. Discussed with Dr. Palomino, s/p mechanical thrombectomy on 11/05/2024. Patient tolerated procedure really well. Dr. Palomino requested monitoring for bleeding overnight due to large bore right groin access. ? Patient recently fractured her right calcaneus, was in a boot for about a month but denies being stationary. Also denies recent extended trips, contraception, smoking. ? Venous Doppler on 11/01/2024 revealed left lower extremity DVT in popliteal, peroneal and calf veins. Patient does say that her left lower extremity is slightly swollen, does have left calf tenderness. ? BLANKA comprehensive panel, factor V Leiden, TSH, LDL, triglycerides normal. ? At this time, PE seems unprovoked. Obesity is a risk factor. Rhinovirus (tested positive during previous admission)/subpleural nodules may be a trigger, though would be rare. ? Referred to hematology for further evaluation. ? Continue Xarelto 15 mg twice daily during admission, will continue Eliquis and put back on discharge and eventually transition to Xarelto (patient requests samples due to cost) on follow-up with cardiology. #NSTEMI type II ? Initial troponin 0.27, EKG without acute ischemic changes. In the setting of s/p mechanical thrombectomy on the same day. Patient denies chest pain, shortness of breath after procedure. Low concern for ACS. #Subpleural nodules ? At least two 8 mm subpleural nodules found in the lingular region. Patient denies asbestos exposure, or other environmental pollutants that she can think of. ? Non-smoker. Follow-up BLANKA comprehensive panel as above. ? Pulmonology previously evaluated, recommend 3-month CT chest follow-up without contrast. Outpatient follow-up with pulmonology. #Anxiety/depression ? Continue home venlafaxine, lamotrigine. #Hypertension ? Continue home lisinopril 20 mg. #Obesity ? Complicates all aspects of care. Full code DVT prophylaxis: Xarelto as above
[2024-11-04 18:18] LABS: Troponin I 0.27 ng/ml (0.00-0.034)
[2024-11-05] VITALS: BP 118/64; PULSE 80; PULSE 84; RESP 20; TEMP 36.7; O2SAT 93
[2024-11-05 04:00] VITALS: BP 116/77; PULSE 80; PULSE 85; RESP 16; TEMP 36.7; O2SAT 95; BMI 58.3
--- NOTE | 2024-11-05 05:31 | PC.NURSE ---
Pt. came to ED yesterday with c/o chest pain. Pt. had been in the hospital a couple of days ago and was diagnosed with Bilateral PE's. Pt. went to shellfish processing laborer yesterday and had a thrombectomy. Pt. was on post op vital at change of shift. Pt.is alert and orientated x 4. Pt. is on room air. Pt. had a right femoral approach for the thrombectomy. Right groin site with dressing in place. Dressing is clean, dry and intact. Pt. denies any pain to the site. Pt. has slept well this shift. Personal items and call christina in reach. Bed in low and loced position, safety measures in place.
[2024-11-05 07:19] LABS: Nucleated Red Blood Cells % 0 %
[2024-11-05 07:35] LABS: Hematocrit 34.3 % (37.0-47.0); Immature Granulocytes % 0.7 %; Mean Corpuscular HGB Conc 32.9 g/dL (31.8-35.4); Mean Corpuscular Hemoglobin 28.8 pg (27.0-31.2); Mean Corpuscular Volume 87.5 fl (81-99); Platelet Count 207 K/mm3 (142-424); Red Blood Count 3.92 M/mm3 (4.20-5.40); Red Cell Distribution Width-SD 46.9 fL; White Blood Count 6.1 K/mm3 (4.8-10.8)
[2024-11-05 07:37] LABS: Hemoglobin 11.3 g/dL (12.2-16.2)
[2024-11-05 07:48] LABS: Alanine Aminotransferase 38 U/L (12-78); Albumin Level 3.7 g/dl (3.5-5.0); Albumin/Globulin Ratio 1.5 (1.1-1.8); Alkaline Phosphatase 81 U/L (38-126); Anion Gap 10.3 mEq/L (5-15); Aspartate Amino Transferase 34 U/L (14-36); Bilirubin,Total 0.5 mg/dl (0.2-1.3); Blood Urea Nitrogen 10 mg/dl (7-17); Calcium 8.7 mg/dl (8.4-10.2); Carbon Dioxide 24 mmol/L (22.0-30.0); Chloride 105 mmol/L (98-107); Creatinine Clearance Estimated 97 mL/min (50-200); Creatinine,Serum 0.70 mg/dl (0.52-1.04); Estimated Glomerular Filt Rate 95 ml/min (>60); GFR (African American) 115 ML/MIN (>60); Globulin 2.5 g/dL (1.3-3.2); Glucose 99 mg/dl (74-100); Magnesium 2.0 mg/dl (1.6-2.3); Potassium 4.3 mmoL/L (3.5-5.1); Sodium 135 mmol/L (136-145); Total Protein,Serum 6.2 g/dl (6.3-8.2)
[2024-11-05 07:54] VITALS: BP 111/67; PULSE 102; RESP 16; TEMP 36.8; O2SAT 100
[2024-11-05 08:00] VITALS: PULSE 100
[2024-11-05] MEDS: LISINOPRIL 20MG TABLET 20 MG PO (09:12)
[2024-11-05] MEDS: VENLAFAXINE XR 75MG CAPSULE 150 MG PO (09:13)
--- NOTE | 2024-11-05 11:29 | HMH.PHAINT1 ---
Pharmacy Intervention Comments: MED LIST COMPARED TO FILL HX AND D/C SUMMARY HERE AT LAST VISIT. VERIFIED VENLAFAXINE DOSE WITH PATIENT.
--- NOTE | 2024-11-05 11:38 | EXP.DC.SUM ---
General Admission date:: 11/04/24 HPI HPI HPI: Maisha Tse is a 34-year-old female with a medical history of extensive bilateral pulmonary emboli presented with chest pain and underwent a successful thrombectomy with Dr. Palomino before being admitting for monitoring for bleeding due to large bore access in right groin. On my evaluation of patient, patient was lying in bed comfortably without acute distress. Denies chest pain, shortness of breath. On room air. CBC, CMP unremarkable. Troponin 0.27, however s/p mechanical thrombectomy. Hospital Course Hospital Course Hospital Course: Maisha Tse is a 34-year-old female with a medical history of extensive bilateral pulmonary emboli presented with chest pain and underwent a successful thrombectomy with Dr. Palomino before being admitting for monitoring for bleeding due to large bore access in right groin. On my evaluation of patient, patient was lying in bed comfortably without acute distress. Denies chest pain, shortness of breath. On room air. CBC, CMP unremarkable. Troponin 0.27, however s/p mechanical thrombectomy. #Extensive bilateral pulmonary emboli #Left lower extremity DVT #RV strain #History of rhinovirus ? Recently hospitalized about a week ago for extensive bilateral pulmonary emboli, CTA chest at that time showing RV strain but ECHO not corroborating this and therefore cardiology recommended close follow-up with cardiology outpatient and DOAC. Discharged in stable condition with Eliquis and close follow-up with cardiology. ? Unfortunately, returned with chest pain and repeat CTA chest 11/04/2024 continue to show RV strain. Discussed with Dr. Palomino, s/p mechanical thrombectomy on 11/05/2024. Patient tolerated procedure really well. Dr. Palomino requested monitoring for bleeding overnight due to large bore right groin access. No evidence of bleeding on day of discharge. ? Patient recently fractured her right calcaneus, was in a boot for about a month but denies being stationary. Also denies recent extended trips, contraception, smoking. ? Venous Doppler on 11/01/2024 revealed left lower extremity DVT in popliteal, peroneal and calf veins. Patient does say that her left lower extremity is slightly swollen, does have left calf tenderness. ? BLANKA comprehensive panel, factor V Leiden, TSH, LDL, triglycerides normal. ? At this time, PE seems unprovoked. Obesity is a risk factor. Rhinovirus (tested positive during previous admission)/subpleural nodules may be a trigger, though would be rare. ? Referred to hematology for further evaluation. ? Will continue Eliquis 10 mg twice daily for total of 7 days, then 5 mg twice daily (sample pack). Will transition to Xarelto (patient requests samples due to cost, unavailable over the weekend) on follow-up with cardiology per Dr. Palomino. #NSTEMI type II ? Initial troponin 0.27, EKG without acute ischemic changes. In the setting of s/p mechanical thrombectomy on the same day. Patient denies chest pain, shortness of breath after procedure. Low concern for ACS. #Subpleural nodules ? At least two 8 mm subpleural nodules found in the lingular region. Patient denies asbestos exposure, or other environmental pollutants that she can think of. ? Non-smoker. Follow-up BLANKA comprehensive panel as above. ? Pulmonology previously evaluated, recommend 3-month CT chest follow-up without contrast. Outpatient follow-up with pulmonology. #Anxiety/depression ? Continue home venlafaxine, lamotrigine. #Hypertension ? Continue home lisinopril 20 mg. #Obesity ? Complicates all aspects of care. Exam Data for Last 24 hours Vital signs and Labs for Last 24 Hours: Temp Pulse Resp BP Pulse Ox O2 Del Method 98.3 F 100 H 16 111/67 100 Room Air 11/05/24 07:54 11/05/24 08:00 11/05/24 07:54 11/05/24 07:54 11/05/24 07:54 11/05/24 07:54 Laboratory Results - last 24 hr 11/04/24 10:22: HCV Ab CHATO w/Rflx PCR Qn Negative, HIV Ag/Ab Combo Qual Negative 11/04/24 13:06: Troponin I < 0.01 11/04/24 14:10: Sodium 137, Potassium 4.0, Chloride 107, Carbon Dioxide 26, Anion Gap 8.0, BUN 9, Creatinine 0.70, Estimated Creat Clear 101, Estimated GFR 95, Est GFR ( Amer) 115, Glucose 95, Calcium 9.0, Serum HCG, Qual Negative 11/04/24 17:20: Troponin I 0.27 H 11/05/24 06:15: WBC 6.1, RBC 3.92 L, Hgb 11.3 L D, Hct 34.3 L, MCV 87.5, MCH 28.8, MCHC 32.9, RDW 14.7, Plt Count 207, MPV 10.5 H, Neut % (Auto) 66.6, Lymph % (Auto) 22.9, [place] % (Auto) 7.1, Eos % (Auto) 2.0, Baso % (Auto) 0.7, Neut # (Auto) 4.1, Lymph # (Auto) 1.4, [place] # (Auto) 0.4, Eos # (Auto) 0.1, Baso # (Auto) 0.0, Sodium 135 L, Potassium 4.3, Chloride 105, Carbon Dioxide 24, Anion Gap 10.3, BUN 10, Creatinine 0.70, Estimated Creat Clear 97, Estimated GFR 95, Est GFR ( Amer) 115, Glucose 99, Calcium 8.7, Magnesium 2.0, Total Bilirubin 0.5, AST 34, ALT 38 D, Alkaline Phosphatase 81, Total Protein 6.2 L, Albumin 3.7 D, Globulin 2.5, Albumin/Globulin Ratio 1.5 I & O for Last 24 hours: Intake & Output 11/02/24 11/03/24 11/04/24 11/05/24 23:59 23:59 23:59 23:59 Intake Total 740 / 740 Output Total 0 / 0 Balance 740 / 740 Weight 158.757 kg 158.757 kg Constitutional Constitutional: no acute distress and morbidly obese *Routine HEENT Exam Head: Present normocephalic Eye: Present EOMI and PERRL ENT: Present mucous membranes moist *Routine Neck Exam Neck: Present supple; Absent lymphadenopathy *Routine Respiratory Exam Respiratory: Present CTA bilaterally *Routine Cardiovascular Exam Cardiovascular: Present RRR *Routine Abdominal Exam Abdominal: Present soft and normoactive bowel sounds; Absent tenderness *Routine Extremities Exam Extremities: Absent cyanosis, clubbing or edema *Routine Skin Exam Skin: Present warm; Absent rash *Routine Neurological Exam Neurological: Present alert and oriented X3 Results Data Completed and Pending Labs on day of discharge: Labs from last 24 hours 11/05/24 11/04/24 11/04/24 06:15 17:20 14:10 WBC 6.1 RBC 3.92 L Hgb 11.3 L D Hct 34.3 L MCV 87.5 MCH 28.8 MCHC 32.9 RDW 14.7 Plt Count 207 MPV 10.5 H Neut % (Auto) 66.6 Lymph % (Auto) 22.9 [place] % (Auto) 7.1 Eos % (Auto) 2.0 Baso % (Auto) 0.7 Neut # (Auto) 4.1 Lymph # (Auto) 1.4 [place] # (Auto) 0.4 Eos # (Auto) 0.1 Baso # (Auto) 0.0 Sodium 135 L 137 Potassium 4.3 4.0 Chloride 105 107 Carbon Dioxide 24 26 Anion Gap 10.3 8.0 BUN 10 9 Creatinine 0.70 0.70 Estimated Creat Clear 97 101 Estimated GFR 95 95 Est GFR ( Amer) 115 115 Glucose 99 95 Calcium 8.7 9.0 Magnesium 2.0 Total Bilirubin 0.5 AST 34 ALT 38 D Alkaline Phosphatase 81 Troponin I 0.27 H Total Protein 6.2 L Albumin 3.7 D Globulin 2.5 Albumin/Globulin Ratio 1.5 Serum HCG, Qual Negative HCV Ab CHATO w/Rflx PCR Qn HIV Ag/Ab Combo Qual 11/04/24 11/04/24 13:06 10:22 WBC RBC Hgb Hct MCV MCH MCHC RDW Plt Count MPV Neut % (Auto) Lymph % (Auto) [place] % (Auto) Eos % (Auto) Baso % (Auto) Neut # (Auto) Lymph # (Auto) [place] # (Auto) Eos # (Auto) Baso # (Auto) Sodium Potassium Chloride Carbon Dioxide Anion Gap BUN Creatinine Estimated Creat Clear Estimated GFR Est GFR ( Amer) Glucose Calcium Magnesium Total Bilirubin AST ALT Alkaline Phosphatase Troponin I < 0.01 Total Protein Albumin Globulin Albumin/Globulin Ratio Serum HCG, Qual HCV Ab CHATO w/Rflx PCR Qn Negative HIV Ag/Ab Combo Qual Negative Meds Home Medications and Allergies Home Medications ?Medication ?Instructions ?Recorded ?Confirmed ?Type lamotrigine 100 mg tablet 100 mg PO DAILY #30 tabs 08/15/24 11/04/24 Rx (Lamictal) lamotrigine 25 mg tablet (Lamictal) 25 mg PO DAILY #30 tabs 08/15/24 11/04/24 Rx venlafaxine 150 mg 150 mg PO DAILY #30 caps 09/06/24 11/04/24 Rx capsule,extended release 24 hr atorvastatin 10 mg tablet 10 mg PO DAILY 10/29/24 11/04/24 History lisinopril 20 mg tablet 20 mg PO DAILY 10/29/24 11/04/24 History venlafaxine 75 mg tablet,extended 75 mg PO DAILY 11/05/24 11/05/24 History release 24 hr New Prescriptions to Start Prescriptions: Allergies Allergy/AdvReac Type Severity Reaction Status Date / Time No Known Allergies Allergy Verified 11/04/24 10:53 Discharge Plan Disposition Patient Disposition: Home, Self-Care Condition: Fair Follow up Plan Follow up with: Reinaldo Velasco PA [Physician Mail Handler Equipment Operator, Cardiology] - 1 week Kavitha Ennis APRN [Primary Care Provider, Family Practice] - See instructions Prescriptions/Medication Reconciliation: Continued lamotrigine [Lamictal] 100 mg tablet 100 mg PO DAILY Qty: 30 2RF lamotrigine [Lamictal] 25 mg tablet 25 mg PO DAILY Qty: 30 2RF venlafaxine 150 mg capsule,extended release 24hr 150 mg PO DAILY Qty: 30 2RF Rx Instructions: TAKES WITH 75 MG DOSE DAILY. Eliquis 5 mg tablet 5 mg PO BID 0RF lisinopril 20 mg tablet 20 mg PO DAILY atorvastatin 10 mg tablet 10 mg PO DAILY Patient Comments: Take 1 tablet by mouth once daily venlafaxine 75 mg Tablet Extended Release 24hr 75 mg PO DAILY Rx Instructions: TAKES WITH 150 MG DOSE DAILY Problem Reconciliation Problems Reviewed?: Yes Patient Discharge Instructions Patient Instructions: DI for Pulmonary Embolism Print Language: Kazakh Providers Primary Care Provider: Kavitha Ennis Admit Provider: Ha Coleman Attending Provider: Ha Coleman
[2024-11-05] MEDS: VENLAFAXINE XR 75MG CAPSULE 75 MG PO (12:20)
--- OUTSIDE RECORDS SUMMARY | 2024-11-05 13:41 | XMS_ITS | Clinical Summary ---
Author Organization Healthcare Address [address] [place] [address] Care Team Providers Care Assistant Professor Of Biology Name Role Phone Pcp, No Primary Care [...] 2016 [facility]-Cervical Cancer Screening 06/04/2019 [facility]-HPV/Cotest 06/04/2019 [id number] Vaccine (3 - 2024- season) 2024 02/02/2021, 01/12/2021 [facility]-Influenza Vaccine (#1) 10/31/202412/26, 12/17/2018, [...] patient's age to complete this topic Insurance [facility] [employer] [facility] MEDICAID Care Teams Assistant Professor Of Biology Relationship Specialty Start Date [place] [address] PCP - General Family Medicine 06/13/22
--- OUTSIDE RECORDS SUMMARY | 2024-11-05 13:41 | XMS_ITS | Clinical Summary ---
Author Organization [facility] Address [address] [place] [address], [address] [place] [address] Care Team Providers Care Endoscopy Nurse Name Role Phone Unavailable Primary Care Provider [...] Documents on File Type Date Recorded Patient Coding Manager Expl anation ACP-Advance Directive 09/16/2012 6:19 PM
--- OUTSIDE RECORDS SUMMARY | 2024-11-05 13:42 | XMS_ITS | Patient Health Record ---
Author Organization [facility] will [facility] Address [address] [place] [address] Phone [phone] Care Team Providers Care Floor Finisher Name Role Phone Denise Bey Unavailable [phone] Migration, Provider Unavailable Unavailable Reason For Referral No Information Medications Medication SIG (Take, Route, Frequency, Duration) Notes Start Date End Date Status Omeprazole 20 MG Capsule Delayed Release Oral Active Azithromycin 250 MG Tablet Oral Active metroNIDAZOLE 500 MG Tablet Oral Active CEFIXIME 400 MG CAPSULE *Reorder from 51 [employer] App for eRx and Interaction Alerts* Active Social History Social History Additional Details Category Social Info Options Details Migrated Social History Migrated Social History Tobacco Years: Never smoker 11/23/2019 Problems Problem Type SNOMED Code ICD Code Onset Dates Problem Status W/U Status Risk Notes Problem History of suspected exposure to biological agent (60686761348066 ) Encounter for observation for suspected exposure to other biological agents ruled out (Z03.818) 0 Active confirmed Encounters Encounter Location Date Provider Diagnosis [facility] [address] [place] [address] 10/01/2024 Provider Migration [facility] [address] [place] [address] 10/02/2024 Provider Migration Plan Of Treatment No Information Insurance Providers Payer Name Payer Address Payer Phone Subscriber Number Group Number Insured Name Patient Relationship to Insured Coverage Start Date Coverage End Date [employer] (Ppo) [address] [place] [address] [id number] Self - patient is the insured
--- NOTE | 2024-11-07 10:26 | SW/DCPLANNER ---
Spoke with patient on the phone. Patient stated that she is doing good. Patient stated that she is aware of her upcoming appointments. Patient stated that she was able to get her new medication picked up. Patient stated that she has no concerns or questions at this time. Min Cates
== END 2024-11-05 12:47 | disposition home or self-care (01) | DRG 163 ==
LOC: ER 14:12 → CATHLAB 14:15 → 2ND 16:29
PROVIDERS: Internal Medicine; Admitting Provider Student in an Organized Health Care Education/Training Program; Emergency Provider Student in an Organized Health Care Education/Training Program; PCP Family Medicine; Visit Provider Student in an Organized Health Care Education/Training Program
PROC: 02CR3ZZ Extirpation of Matter from Left Pulmonary Artery, Percutaneous Approach (ICD-10-PCS; principal; 2024-11-04 13:50)
DX: I26.09 Other pulmonary embolism with acute cor pulmonale (principal); I21.A1 Myocardial infarction type 2; I82.432 Acute embolism and thrombosis of left popliteal vein; I82.452 Acute embolism and thrombosis of left peroneal vein; I82.4Z2 Acute embolism and thrombosis of unspecified deep veins of left distal lower extremity; Z68.43 Body mass index [BMI] 50.0-59.9, adult; I10 Essential (primary) hypertension; E66.01 Morbid (severe) obesity due to excess calories; F32.9 Major depressive disorder, single episode, unspecified; F42.9 Obsessive-compulsive disorder, unspecified; F41.9 Anxiety disorder, unspecified; R91.8 Other nonspecific abnormal finding of lung field; Z86.19 Personal history of other infectious and parasitic diseases; Z79.899 Other long term (current) drug therapy
CPT/HCPCS: 34490; 36415; 71275; 80048; 80053; 83690; 83735; 84484; 84703; 85025; 86803; 87389; 93005; 99152; 99153; 99285; C1725; C1757; C1769; C1894; G0378; J1200; J1644; J3010; J7040; Q9967

== ENCOUNTER 2024-12-27 14:25 | Outpatient (CLI) | payer SELFPAY ==
--- OUTSIDE RECORDS SUMMARY | 2024-12-27 14:46 | XMS_ITS | Clinical Summary ---
Author Organization [facility] Address [address] [place] [address], [address] [place] [address] Care Team Providers Care Unit Operator Name Role Phone Unavailable Primary Care [...] Documents on File Type Date Recorded Patient Patternmaker Hand Expl anation ACP-Advance Directive 09/16/2012 6:19 PM
--- OUTSIDE RECORDS SUMMARY | 2024-12-27 14:46 | XMS_ITS | Clinical Summary ---
Author Organization Healthcare Address [address] [place] [address] Care Team Providers Care Manager Urgent Care Name Role Phone Pcp, No Primary Care [...] 2016 [facility]-Cervical Cancer Screening 06/04/2019 [facility]-HPV/Cotest 06/04/2019 [id number] Vaccine (3 - 2024- season) 2024 02/02/2021, [...] complete this topic Insurance [facility] [employer] [facility] MEDICAID Care Teams Manager Urgent Care Relationship Specialty Start Date [place] [address] PCP - General Family Medicine 06/13/22
[2024-12-28 15:34] LABS: Anti-Cardio Antibody IgM <9 MPL U/mL (0-12); Anti-Cardiolipin Antibody IgG <9 GPL U/mL (0-14); Beta-2 Glycoprotein I Ab, IgG <9 (0-20); Beta-2 Glycoprotein I Ab, IgM <9 (0-32)
== END 2024-12-27 23:59 | disposition home or self-care (01) ==
LOC: LAB 14:26
PROVIDERS: PCP Nurse Practitioner Family; Visit Provider Internal Medicine Medical Oncology
DX: I82.622 Acute embolism and thrombosis of deep veins of left upper extremity (principal); I82.432 Acute embolism and thrombosis of left popliteal vein; I26.99 Other pulmonary embolism without acute cor pulmonale; R91.1 Solitary pulmonary nodule; E55.9 Vitamin D deficiency, unspecified
CPT/HCPCS: 36415; 81240; 85300; 85301; 85302; 85306; 86146; 86147